=== PATIENT | female | born 1955 | race Caucasian/White ===

== ENCOUNTER 2021-01-28 11:32 | Outpatient (CLI) | payer BC, SELFPAY | END 2021-01-28 11:33 | disposition home or self-care (01) | LOC: ANHCOVIDVC 11:32 | PROVIDERS: PCP Family Medicine | DX: Z23 Encounter for immunization (principal) | CPT/HCPCS: 0001A; 91300 ==

== ENCOUNTER 2021-02-18 11:31 | Outpatient (CLI) | payer BC, SELFPAY | END 2021-02-18 11:32 | disposition home or self-care (01) | LOC: ANHCOVIDVC 11:32 | PROVIDERS: PCP Family Medicine | DX: Z23 Encounter for immunization (principal) | CPT/HCPCS: 0002A; 91300 ==

== ENCOUNTER 2022-03-09 11:15 | Outpatient (CLI) | payer MEDICARE, SELFPAY ==
--- NOTE | ~2022-03-09 | XR_ITS ---
XR lumbar spine 2-3V DATE: 03/09/2022 11:38 INDICATION: Follow-up to surgery 5 weeks ago TECHNIQUE: Standing AP and lateral views COMPARISON: 05/11/2015 lumbar spine FINDINGS: Status post posterior and interbody spinal fusion at L5-S1 There is approximately 7.7 mm grade 1 anterolisthesis at L5-S1. Diffuse osteopenia. Moderately severe degenerative disc disease at L1-2. There is mild degenerative disease at L2-3, L3-4 and L4-5. No fracture or bone destruction is evident. The lumbar pedicles appear intact. The sacroiliac joints appear normal. There is extensive calcification of the abdominal aorta and common iliac arteries, without evidence o f aneurysm. IMPRESSION: Status post posterior and interbody spinal fusion at L5-S1 Grade 1 anterolisthesis at L5-S1 Moderately severe degenerative disc disease at L1-2 and mild degenerative disc disease at the remaini ng lumbar interspaces Reviewed, dictated and finalized at location A. IMPRESSION: Status post posterior and interbody spinal fusion at L5-S1 Grade 1 anterolisthesis at L5-S1 Moderately severe degenerative disc disease at L1-2 and mild degenerative disc disease at the remaining lumbar interspaces
== END 2022-03-09 11:16 | disposition home or self-care (01) ==
LOC: ANHIMG 11:22
PROVIDERS: PCP Family Medicine; Visit Provider Neurological Surgery
DX: M54.50 Low back pain, unspecified (principal); Z98.1 Arthrodesis status; M43.17 Spondylolisthesis, lumbosacral region; M51.36 Other intervertebral disc degeneration, lumbar region
CPT/HCPCS: 72100

== ENCOUNTER 2022-04-06 14:09 | Outpatient (CLI) | payer MEDICARE, SELFPAY ==
--- NOTE | ~2022-04-06 | XR_ITS ---
EXAM: XR lumbar spine 2-3V DATE: 04/06/2022 14:30 HISTORY: ARTHRODESIS STATUS, LOW BACK PAIN UNSPECIFIED . COMPARISON: 03/09/2022. FINDINGS: 5 nonrib-bearing lumbar-type vertebral bodies. L4-5 posterior fusion with interbody device s, no hardware fracture or perihardware lucency. Pedicles intact. Exaggerated lumbar lordosis, stable grade 1 L5-S1 anterolisthesis, otherwise normal vertebral body alignment. Vertebral body heights pre served. Disc disc space narrowing at L1-2. Multilevel marginal osteophytosis. Normal facet sclerosis and interspinous narrowing in the lower lumbar spine. No fracture or dislocation. Abdominal aortic ca lcification without evident aneurysm. IMPRESSION: L5-S1 fusion, no hardware related complication. No acute fracture or traumatic malalignme nt in the lumbar spine. Reviewed, dictated and finalized at location K. IMPRESSION: L5-S1 fusion, no hardware related complication. No acute fracture o r traumatic malalignment in the lumbar spine.
== END 2022-04-06 14:10 | disposition home or self-care (01) ==
PROVIDERS: PCP Family Medicine; Visit Provider Neurological Surgery
DX: M54.50 Low back pain, unspecified (principal); Z98.1 Arthrodesis status; Z98.890 Other specified postprocedural states
CPT/HCPCS: 72100

== ENCOUNTER 2022-05-19 10:41 | Outpatient (CLI) | payer MEDICARE, SELFPAY ==
--- NOTE | ~2022-05-19 | XR_ITS ---
EXAM: XR lumbar spine 2-3V DATE: 05/19/2022 11:08 HISTORY: ARTHRODESIS STATUS, LOW BACK PAIN . COMPARISON: 04/06/2022. FINDINGS: 5 nonrib-bearing lumbar-type vertebral bodies. Pedicles intact. Decreased mineralization. Exaggerated lordosis and mild scoliosis. Posterior fusion at L5-S1, no hardware fracture or abnormal surrounding lucency. Undersurface of the interbody device is uncovered but stable from the prior stud y. Unchanged grade 2 anterolisthesis of L5 on S1. Vertebral body heights are preserved. Multilevel de generative disc disease and facet arthropathy. No abdominal aortic aneurysm. No fracture or dislocati on. IMPRESSION: Uncomplicated appearing L5-S1 posterior fusion. No acute fracture or traumatic malalignme nt. Multilevel degenerative disc disease and facet arthropathy. Reviewed, dictated and finalized at location K. IMPRESSION: Uncomplicated appearing L5-S1 posterior fusion. No acute fracture o r traumatic malalignment. Multilevel degenerative disc disease and facet arthro chen.
== END 2022-05-19 10:42 | disposition home or self-care (01) ==
PROVIDERS: PCP Family Medicine; Visit Provider Neurological Surgery
DX: M54.50 Low back pain, unspecified (principal); Z98.1 Arthrodesis status
CPT/HCPCS: 72100

== ENCOUNTER 2022-07-07 10:10 | Outpatient (CLI) | payer MEDICARE, SELFPAY ==
--- NOTE | 2022-07-07 11:00 | NEURO_ITS ---
Impression: # Known diabetic complains of numbness and weakness of hands. # Bilateral Carpal Tunnel Syndrome of moderate degree, right more than left. # Bilateral severe ulnar neuropathy around the elbows. # Abnormal needle/EMG exam. Nerve Conduction Studies Anti Sensory Summary Table Stim Site NR Peak (ms) P-T Amp (?V) Site1 Site2 Delta-P (ms) Dist (cm) Jac (m/s) Left Median Anti Sensory (2-3nd Digit) Wrist 5.2 13.9 Wrist 2-3nd Digit 5.2 14.0 27 Wrist 5.3 7.7 Wrist 2-3nd Digit 5.2 14.0 27 Right Median Anti Sensory (2-3nd Digit) Wrist 6.9 14.7 Wrist 2-3nd Digit 6.9 14.0 20 Wrist 6.7 25.9 Wrist 2-3nd Digit 6.9 14.0 20 Left Radial Anti Sensory (Base 1st Digit) Wrist 3.3 14.8 Wrist Base 1st Digit 3.3 0.0 Right Radial Anti Sensory (Base 1st Digit) Wrist 3.6 29.4 Wrist Base 1st Digit 3.6 0.0 Left Ulnar Anti Sensory (5th Digit) NO RESPONSE Wrist NR Wrist 5th Digit 14.0 Right Ulnar Anti Sensory (5th Digit) NO RESPONSE Wrist NR Wrist 5th Digit 14.0 Motor Summary Table Stim Site NR Onset (ms) O-P Amp (mV) Site1 Site2 Delta-0 (ms) Dist (cm) Jac (m/s) Left Median Motor (Abd Poll Brev) Wrist 5.9 3.3 Elbow Wrist 5.6 27.0 48 Elbow 11.5 3.1 Right Median Motor (Abd Poll Brev) Wrist 6.6 2.1 Elbow Wrist 5.6 24.0 43 Elbow 12.2 1.9 Left Ulnar Motor (Abd Dig Minimi) Wrist 4.3 0.4 A Elbow Wrist 10.8 29.0 27 A Elbow 15.1 0.5 B Elbow Wrist 6.2 19.0 31 B Elbow 10.5 0.2 Right Ulnar Motor (Abd Dig Minimi) Wrist 4.5 0.6 A Elbow Wrist 10.1 24.0 24 A Elbow 14.6 0.4 B Elbow Wrist 12.1 20.0 17 B Elbow 16.6 0.1 F Wave Studies NR F-Lat (ms) L-R F-Lat (ms) Left Median (Mrkrs) (Abd Poll Brev) 28.57 0.56 Right Median (Mrkrs) (Abd Poll Brev) 28.01 0.56 Left Ulnar (Mrkrs) (Abd Dig Min) 28.01 0.00 Right Ulnar (Mrkrs) (Abd Dig Min) 28.01 0.00 EMG Side Muscle Nerve Root Ins Act Fibs Amp Dur Recrt Comment Right 1stDorInt Ulnar C8-T1 Nml Nml Decr >12ms Reduced Right Ext Indicis Radial (Post Int) C7-8 Nml Nml Nml Nml Nml Right Ext Digitorum Radial (Post Int) C7-8 Nml Nml Nml Nml Nml Right BrachioRad Radial C5-6 Nml Nml Nml Nml Nml Right PronatorTeres Median C6-7 Nml Nml Nml Nml Nml Right Abd Poll Brev Median C8-T1 Nml Nml Decr >12ms Reduced Left 1stDorInt Ulnar C8-T1 Nml Nml Decr >12ms Reduced Left Ext Indicis Radial (Post Int) C7-8 Nml Nml Nml Nml Nml Left Ext Digitorum Radial (Post Int) C7-8 Nml Nml Nml Nml Nml Left BrachioRad Radial C5-6 Nml Nml Nml Nml Nml Left PronatorTeres Median C6-7 Nml Nml Nml Nml Nml Left Abd Poll Brev Median C8-T1 Nml Nml Decr >12ms Reduced Right ABD Dig Min Ulnar C8-T1 Nml Nml Decr >12ms Reduced Left ABD Dig Min Ulnar C8-T1 Nml Nml Decr >12ms Reduced MTDD
== END 2022-07-07 10:11 | disposition home or self-care (01) ==
LOC: ANHNEURO 10:12
PROVIDERS: PCP Family Medicine; Visit Provider Nurse Practitioner Family
DX: R20.0 Anesthesia of skin (principal); G56.03 Carpal tunnel syndrome, bilateral upper limbs; G56.23 Lesion of ulnar nerve, bilateral upper limbs
CPT/HCPCS: 95886; 95911

== ENCOUNTER 2022-07-13 09:49 | Outpatient (CLI) | payer MEDICARE, SELFPAY ==
--- NOTE | ~2022-07-13 | XR_ITS ---
EXAM: XR lumbar spine 2-3V DATE: 07/13/2022 10:21 HISTORY: ARTHRODESIS STATUS . COMPARISON: 05/19/2022. FINDINGS: Osteopenia. Mild lumbar scoliosis. Posterior fusion L5-S1, with intact hardware. Grade 2 L5 -S1 anterolisthesis, stable. Interbody device remains in stable position. 5 nonrib-bearing lumbar-typ e vertebral bodies. Pedicles intact. Remaining vertebral bodies are aligned. Vertebral body heights p reserved. Multilevel degenerative disc disease and facet arthropathy. No fracture or dislocation. IMPRESSION: Stable L5-S1 posterior fusion. Reviewed, dictated and finalized at location K.
== END 2022-07-13 09:50 | disposition home or self-care (01) ==
PROVIDERS: PCP Family Medicine; Visit Provider Neurological Surgery
DX: Z98.1 Arthrodesis status (principal)
CPT/HCPCS: 72100

== ENCOUNTER 2022-10-05 10:42 | Outpatient (CLI) | payer MEDICARE, SELFPAY ==
--- NOTE | ~2022-10-05 | XR_ITS ---
EXAM: XR lumbar spine 2-3V DATE: 10/05/2022 11:10 HISTORY: ENCOUNTER FOR L5-S1 LAMINECTOMY/FUSION SURGICAL AFTERCARE . COMPARISON: 07/13/2022. FINDINGS: Osteopenia. L5-S1 posterior fusion and interbody device, stable, and without obvious compli cation. 5 nonrib-bearing lumbar-type vertebral bodies. Pedicles intact. Stable grade 2 anterolisthesi s at L5-S1. Vertebral body heights preserved. Multilevel moderate marginal osteophytosis and disc spa ce narrowing. Multilevel facet arthropathy. No fracture or dislocation. IMPRESSION: Uncomplicated appearing L5-S1 posterior fusion hardware. Reviewed, dictated and finalized at location K. F MARKETING OFFICER
== END 2022-10-05 10:43 | disposition home or self-care (01) ==
PROVIDERS: PCP Family Medicine; Visit Provider Neurological Surgery
DX: Z48.89 Encounter for other specified surgical aftercare (principal); Z98.1 Arthrodesis status
CPT/HCPCS: 72100

== ENCOUNTER 2022-10-16 12:29 | Outpatient (CLI) | payer MEDICARE, SELFPAY ==
[2022-10-16 13:31] LABS: Anion Gap 9 mmol/L (8-16); Blood Urea Nitrogen 31 mg/dL (7-17); Calcium 9.1 mg/dL (8.4-10.2); Carbon Dioxide 30 mmol/L (22-30); Chloride 103 mmol/L (98-107); Estimated Glomerular Filt Rate > 60; Glucose 92 mg/dL (65-110); Potassium 4.3 mmol/L (3.4-5.0); Sodium 142 mmol/L (137-145)
== END 2022-10-16 12:30 | disposition home or self-care (01) ==
PROVIDERS: Anesthesiology; PCP Family Medicine; Visit Provider Plastic Surgery
DX: E11.40 Type 2 diabetes mellitus with diabetic neuropathy, unspecified (principal)
CPT/HCPCS: 36415; 80048

== ENCOUNTER 2022-10-21 00:46 | Day surgery (SDC) | payer MEDICARE, SELFPAY ==
--- NOTE | 2022-10-14 08:19 | PC.NURSE ---
Report to the Outpatient Waiting Room, entrance under the green pavilion located off [address], at time __0600 on date _10/21/22 . Planned Procedure Time: _0730 . Time changes happen often and if your time is changed the preop area will call you the afternoon before. - You and your visitor will be asked to self-screen and do not enter if you have any COVID symptoms. - Only one visitor is requested with a max of two and NO children visitors are allowed at this time. - The patient visitor may be requested to leave or wait in car when not with patient due to distancing restrictions. - A mask is optional within the hospital. Patients may have clear liquids (water, carbonated beverages, clear teas, apple juice) until 3 hours prior to surgery with a maximum of 20 ounces. - No food from midnight until time of surgery - Infants may have breast milk until 4 hours before surgery, infant formula 6 hours prior to surgery. - Children will be allowed to drink immediately following surgery. If applicable, please bring a bottle or sippy cup to assist with drinking. Juice, water, soda, and popsicles are readily available. For infants on formula, please bring formula the day of surgery. Pacifiers are allowed. Take the following medications with a SIP of water the morning of surgery: ___METOPROLOL Medications to discontinue per physician ___ALL VITAMINS AND SUPPLEMENTS Date to take last dose____10/17/22 MAY CONTINUE TO TAKE ASPIRIN AND PLAVIX PER DR DAVIDSON- BUT PLEASE DO NOT TAKE MORNING OF SURGERY Please no make-up, nail mauritanian, hairspray, perfume, deodorant, or body powder the day of surgery. No jewelry (including any body piercings) or valuables the day of surgery, leave them at home. Please take a shower or bath the night before, or the morning of, surgery with an antibacterial soap. Wear comfortable, loose fitting clothing. Children are encouraged to wear pajamas. - Jewelry must be removed prior to entering the operating room. Rings and piercings that are not removed may be cut off. - The hospital will not accept responsibility for valuables. - Please leave all valuables, including medications, at home the day of surgery. If you are going home after surgery, a licensed vibratory pile driver must drive you home. - NO public transportation without another adult if you receive anesthesia. - We recommend that an adult stay with you for 24 hours following discharge. - We also recommend that you do not drive, make important decision, drink alcoholic beverages, or take any drugs that were not prescribed by your health care provider for at least 24 hours after your discharge time. For Pediatric surgeries, we recommend two adults accompany the child home. Follow any additional instructions given to you from your surgeon. If you or anyone in your household have experienced Covid symptoms in the past week, please notify your surgeon or the nurse liaison at the phone number below for possible testing. Telephone instructions given to __PATIENT and asked if any additional questions and then verbalized understanding. Patient advised to call surgeon office or pre surgery nurse liaison [phone] if any additional questions.
[2022-10-14 08:31] VITALS: BMI 35.7
--- NOTE | 2022-10-21 07:35 | WPDHPUPDATE1 ---
History and Physical Update Update Date/Time: 10/21/22 07:35 History and Physical has been reviewed, including an updated exam of the patient. There are NO changes in the patient's condition. Risks, benefits, and alternatives have been discussed and questions answered. Patient agrees to proceed with procedure.
[2022-10-21 07:40] VITALS: BP 154/64; PULSE 76; RESP 14; TEMP 36.2; O2SAT 100
[2022-10-21 07:51] VITALS: BMI 43.4
[2022-10-21] MEDS: LACTATED RINGERS 1,000 ML 30 ML IV CONT (08:35)
[2022-10-21 08:43] LABS: Glucose Point of Care 97 mg/dl (65-105)
--- NOTE | 2022-10-21 09:22 | WPDANESEPPF ---
Anes - Initial Pre Proc Eval Procedure: Operation Date: 10/21/22 09:30 Proposed Procedures p Right Open Carpal Tunnel Release, Right Ulnar Neuroplasty at Elbow - Mahesh Simon MD Date/Time: 10/21/22 09:22 Surgeon: Mahesh Simon MD Pre Op Diagnosis: right carpal & cubital tunnel syndrome Patient Data Age: 67 Gender: F Height: 1.61 m Weight: 112.9 kg Last Vital Signs Temp 36.2 C L 10/21/22 07:40 Pulse 76 10/21/22 07:40 Resp 14 10/21/22 07:40 BP 154/64 H 10/21/22 07:40 Pulse Ox 100 10/21/22 07:40 O2 Del Method Room Air 10/21/22 07:40 Allergies Allergy/AdvReac Type Severity Reaction Status Date / Time morphine Allergy Severe Nausea and Verified 10/21/22 07:50 Vomiting metformin Allergy Unknown Nausea and Verified 10/21/22 07:50 Vomiting Penicillins AdvReac Unknown Other Verified 10/21/22 07:50 Home Medications Medication Instructions Recorded Confirmed Type aspirin 81 mg tablet,delayed 81 mg PO DAILY 12/26/19 10/21/22 History release (Aspir-) loratadine 10 mg tablet (Claritin) 10 mg PO DAILY 02/29/20 10/14/22 History mecobalamin (vitamin B12) 1,000 1,000 mcg PO DAILY 02/29/20 10/14/22 History mcg chewable tablet meclizine 25 mg tablet 25 mg PO TID PRN dizziness #30 tabs 03/27/20 10/14/22 Rx atorvastatin 20 mg tablet 20 mg PO QHS #90 tabs 05/19/22 10/14/22 Rx clopidogrel 75 mg tablet 75 mg PO DAILY #90 tabs 05/19/22 10/21/22 Rx lisinopril 10 mg tablet 10 mg PO BID #180 tabs 08/13/22 10/14/22 Rx omeprazole 20 mg capsule,delayed See Rx Instructions .Route 08/13/22 10/14/22 Rx release .COMPLEX #90 caps metoprolol succinate 25 mg 37.5 mg PO DAILY #90 tabs 10/07/22 10/21/22 Rx tablet,extended release 24 hr hydrochlorothiazide 12.5 mg capsule 12.5 mg PO DAILY 10/14/22 10/14/22 History ibuprofen 200 mg tablet (Advil) 200 mg PO Q6H PRN Pain 10/14/22 10/14/22 History insulin lispro protamine-lispro 37 unit (0.37 mL) subcut BID #210 10/19/22 Rx 100 unit/mL (75-25) subcutaneous mL pen (Humalog Mix 75-25 KwikPen) Laboratory Tests 10/21/22 08:40 POC Capillary Glucose 97 mg/dl mg/dl (65-105) Patient hx anesthesia problems: none Family hx anesthesia problems: none Results Review: All pre-operative results and documents have been reviewed as part of the pre-operative evaluation. [facility] Past Medical History Medical History CAD in [place] artery Cataract 2014 Chronic low back pain Essential (primary) hypertension History of kidney stones 2013 History of stroke Peripheral neuropathy Stroke may 2017 Type 2 diabetes mellitus with diabetic neuropathy Surgical History Surgical History History of coronary artery stent placement 10/2017 x3 times Hx of decompressive lumbar laminectomy (~01/26/22) L5-S1 decompressive laminectomy with fusion - Dr Encarnacion at [facility] Social History Social History (Updated 03/16/22 @ 15:14 by Lisa Trejo NP) Social History: Patient lives with her boyfriend in [place]. 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 Smoking status: Never smoker Living arrangements: with family Spiritual care concerns: No Anes - Eval Final PreProcedure Day of Procedure 10/21/22 09:22 Patient weight: morbidly obese Heart: regular rate and rhythm Lungs: decreased breath sounds Airway: Mallampati scale class II Neurological: alert and oriented Last oral intake: >/= 8 hours ASA classification: III Emergent: no Anesthetic plan: proceed Anesthesia type and monitoring: general GIVS and standard monitoring Results Review: All pre-operative results and documents have been reviewed as part of the pre-operative evaluation. Informed Consent: The patient's anesthetic plan and its attendant risks and benefits were discussed with the patien
[2022-10-21] MEDS: LIDO 1%/EPINEPHRINE/PF 1:200,000 30 ML VIAL XX (10:07)
[2022-10-21 10:49] VITALS: BP 117/53; PULSE 91; RESP 16; TEMP 37.2; O2SAT 97
--- NOTE | 2022-10-21 11:03 | P.OP_ITS ---
Procedure Note - Detailed Date of Procedure 10/21/22 Pre-op Diagnosis right carpal & cubital tunnel syndrome Post-op Diagnosis Same Procedure Performed Right carpal tunnel release and right ulnar neuroplasty at the elbow Surgeon Mahesh Simon MD Anesthesia MAC Description of Procedure The 2 sites were marked on the patient's right upper extremity in the holding area with her consent. He was then taken to the operating room and placed supine on the operating table. She was given IV sedation. The right upper extremity was prepped and draped usual fashion. A time-out was held and confirmed. The site was remarked for the incisions and locally infiltrated with 1% lidocaine with epinephrine. The right upper extremity was exsanguinated and the tourniquet inflated to 250 mmHg. The incision was made 1st in the palm and dissected bluntly through the subcutaneous tissue to the palmar fascia. Under 3 point retraction the fascia and the carpal retinaculum were incised with a 15 blade. The carpal tunnel was exposed. The ligament was divided distally and proximally for complete release. No unusual anatomy was noted. The skin was closed with interrupted 5 0 nylon suture. The elbow was flexed and supported on a folded towel. The incision was made for the ulnar neuroplasty. Dissection was carried through the ample subcutaneous tissue. The interspace between the medial epicondyle and the olecranon was identified. The nerve was exposed at that point and the fascial released from the nerve of proximally and distally including the release of Garza's ligament. No unusual anatomy was noted, there appeared to be no compression in the flexor muscle fascia. The nerve subluxated as we flexed and extended the elbow. The tourniquet was released and there was minimal bleeding. Few points were electrocoagulated. The wound margins were approximated with intradermal 3- 0 Monocryl suture at multiple sites. The skin was then closed with glue. When the glue dried the usual bandage was applied at the wrist and at the elbow. The patient was discharged in stable condition to the recovery area. She is being discharged with instructions wound care and follow-up and a prescription for hydrocodone 5/325 7 tablets. Estimated Blood Loss 2 Drains No Packing No Pathology None sent Complications No immediate complications Condition Stable Disposition Same day
[2022-10-21 11:11] LABS: Glucose Point of Care 103 mg/dl (65-105)
[2022-10-21 11:15] VITALS: BP 134/46; PULSE 88
[2022-10-21 11:40] VITALS: BP 115/47; PULSE 88
== END 2022-10-21 11:50 | disposition home or self-care (01) ==
PROVIDERS: PCP Family Medicine; Visit Provider Plastic Surgery
PROC: (CPT 64721; principal; 2022-10-21 09:30)
DX: G56.01 Carpal tunnel syndrome, right upper limb (principal); G56.21 Lesion of ulnar nerve, right upper limb; I10 Essential (primary) hypertension; E11.42 Type 2 diabetes mellitus with diabetic polyneuropathy; Z86.73 Personal history of transient ischemic attack (TIA), and cerebral infarction without residual deficits; Z95.5 Presence of coronary angioplasty implant and graft; E66.01 Morbid (severe) obesity due to excess calories; Z68.41 Body mass index [BMI] 40.0-44.9, adult; Z79.82 Long term (current) use of aspirin; Z79.02 Long term (current) use of antithrombotics/antiplatelets; Z79.4 Long term (current) use of insulin
CPT/HCPCS: 64721; 64718; 82948; A9270; J2250; J2704; J3010; J7120

== ENCOUNTER 2022-11-26 10:31 | Outpatient (CLI) | payer MEDICARE, SELFPAY ==
[2022-11-26 19:51] LABS: Basophils Percent Auto 0.4 % (0.2-1.2); Eosinophils Absolute Auto 0.3 K/mm3 (0-0.3); Eosinophils Percent Auto 3.9 % (0-4.4); Hematocrit 42.6 % (37.0-47.0); Hemoglobin 12.9 g/dL (12.0-15.0); Immature Granulocyte Absolute 0.03 K/mm3 (0.00-0.031); Immature Granulocyte Percent A 0.4 % (0-0.5); Lymphocytes Absolute Auto 1.04 K/mm3 (0.9-3.2); Mean Corpuscular HGB Conc 30.3 g/dl (32-36); Mean Corpuscular Hemoglobin 28.9 pg (26-34); Mean Corpuscular Volume 95.5 fl (80-100); Mean Platelet Volume 9.6 fl (7.4-10.4); Monocytes Absolute Auto 0.5 K/mm3 (0.1-0.6); Monocytes Percent Auto 6.9 % (2.6-8.5); Neutrophils Absolute Auto 5.5 K/mm3 (1.3-6.7); Neutrophils Percent Auto 74.4 % (45.5-73.1); Platelet Count Result 297 k/mm3 (150-375); Red Blood Count 4.46 M/mm3 (4.2-5.4); Red Cell Distribution Width 14.2 % (11.5-14.5); White Blood Count 7.4 K/mm3 (4.5-10.0)
[2022-11-26 20:44] LABS: Hemoglobin A1C 8.2 % (<5.7)
[2022-11-26 20:58] LABS: Alanine Aminotransferase 18 U/L (6-35); Albumin Level 4.2 g/dL (3.5-5.1); Alkaline Phosphatase 134 U/L (38-126); Anion Gap 3 mmol/L (8-16); Aspartate Amino Transferase 52 U/L (14-36); Bilirubin,Total 0.3 mg/dL (0.2-1.3); Blood Urea Nitrogen 24 mg/dL (7-17); Calcium 9.1 mg/dL (8.4-10.2); Carbon Dioxide 36 mmol/L (22-30); Chloride 97 mmol/L (98-107); Cholesterol 143 mg/dL (0-200); Estimated Glomerular Filt Rate > 60; Glucose 95 mg/dL (65-110); HDL Direct 54 mg/dL; Potassium 4.7 mmol/L (3.4-5.0); Sodium 136 mmol/L (137-145); Triglycerides 103 mg/dL (<150)
[2022-11-26 21:10] LABS: LDL Cholesterol Direct 51 mg/dL
== END 2022-11-26 10:32 | disposition home or self-care (01) ==
LOC: ANHGOSHLAB 10:34
PROVIDERS: PCP Family Medicine; Visit Provider Nurse Practitioner Family
DX: E78.5 Hyperlipidemia, unspecified (principal); I10 Essential (primary) hypertension; E11.9 Type 2 diabetes mellitus without complications
CPT/HCPCS: 36415; 80053; 80061; 83036; 85025

== ENCOUNTER 2022-12-02 00:34 | Day surgery (SDC) | payer MEDICARE, SELFPAY ==
--- NOTE | 2022-11-27 14:33 | PC.NURSE ---
Report to the Outpatient Waiting Room, entrance under the green pavilion located off [address], at time ___0600____ on date __12/02/22 . Planned Procedure Time: _729 . Time changes happen often and if your time is changed the preop area will call you the afternoon before. - You and your visitor will be asked to self-screen and do not enter if you have any COVID symptoms. - Only one visitor is requested with a max of two and NO children visitors are allowed at this time. - The patient visitor may be requested to leave or wait in car when not with patient due to distancing restrictions. - A mask is optional within the hospital. Patients may have clear liquids (water, carbonated beverages, clear teas, apple juice) until 3 hours prior to surgery with a maximum of 20 ounces. - No food from midnight until time of surgery - Infants may have breast milk until 4 hours before surgery, formula 6 hours prior to surgery. - Children will be allowed to drink immediately following surgery. If applicable, please bring a bottle or sippy cup to assist with drinking. Juice, water, soda, and popsicles are readily available. For infants on formula, please bring formula the day of surgery. Pacifiers are allowed. Take the following medications with a SIP of water the morning of surgery: __METOPROLOL Medications to discontinue per physician ___ALL VITAMINS AND SUPPLEMENTS 3 DAYS PRE OP LAST DOSE 11/28/22 REMAIN ON ASPIRIN AND PLAVIX .DON'T TAKE MORNING OF SURGERY Date to take last dose Please no make-up, nail yi, hairspray, perfume, deodorant, or body powder the day of surgery. No jewelry (including any body piercings) or valuables the day of surgery, leave them at home. Please take a shower or bath the night before, or the morning of, surgery with an antibacterial soap. Wear comfortable, loose fitting clothing. Children are encouraged to wear pajamas. - Jewelry must be removed prior to entering the operating room. Rings and piercings that are not removed may be cut off. - The hospital will not accept responsibility for valuables. - Please leave all valuables, including medications, at home the day of surgery. If you are going home after surgery, a licensed driver medic must drive you home. - NO public transportation without another adult if you receive anesthesia. - We recommend that an adult stay with you for 24 hours following discharge. - We also recommend that you do not drive, make important decision, drink alcoholic beverages, or take any drugs that were not prescribed by your health care provider for at least 24 hours after your discharge time. For Pediatric surgeries, we recommend two adults accompany the child home. Follow any additional instructions given to you from your surgeon. If you or anyone in your household have experienced Covid symptoms in the past week, please notify your surgeon or the nurse liaison at the phone number below for possible testing. Telephone instructions given to ___PATIENT and asked if any additional questions and then verbalized understanding. Patient advised to call surgeon office or pre surgery nurse liaison [phone] if any additional questions.
[2022-11-27 14:39] VITALS: BMI 38.3
[2022-12-02] VITALS (7 sets, daily range): BP systolic 119–178; BP diastolic 61–81; PULSE 80–85; RESP 14–18; TEMP 36.3; O2SAT 95–100
[2022-12-02 06:36] LABS: Glucose Point of Care 82 mg/dl (65-105)
--- NOTE | 2022-12-02 07:05 | WPDANESEPPF ---
Anes - Initial Pre Proc Eval Procedure: Operation Date: 12/02/22 07:30 Proposed Procedures p Left Open Carpal Tunnel Release, Left Ulnar Neuroplasty at Elbow - Mahesh Simon MD Date/Time: 12/02/22 07:05 Surgeon: Mahesh Simon MD Pre Op Diagnosis: carpal/cubital tunnel syndrome Patient Data Age: 67 Gender: F Height: 1.61 m Weight: 111.8 kg Last Vital Signs Temp 36.3 C L 12/02/22 07:01 Pulse 85 12/02/22 07:01 Resp 16 12/02/22 07:01 BP 119/61 12/02/22 07:01 Pulse Ox 100 12/02/22 07:01 O2 Del Method Room Air 12/02/22 07:01 Allergies Allergy/AdvReac Type Severity Reaction Status Date / Time morphine Allergy Severe Nausea and Verified 12/02/22 06:17 Vomiting metformin Allergy Unknown Nausea and Verified 12/02/22 06:17 Vomiting Penicillins AdvReac Unknown Other Verified 12/02/22 06:17 Home Medications Medication Instructions Recorded Confirmed Type aspirin 81 mg tablet,delayed 81 mg PO DAILY 12/26/19 12/02/22 History release (Aspir-) loratadine 10 mg tablet (Claritin) 10 mg PO DAILY 02/29/20 12/02/22 History mecobalamin (vitamin B12) 1,000 1,000 mcg PO DAILY 02/29/20 12/02/22 History mcg chewable tablet meclizine 25 mg tablet 25 mg PO TID PRN dizziness #30 tabs 03/27/20 11/27/22 Rx lisinopril 10 mg tablet 10 mg PO BID #180 tabs 08/13/22 12/02/22 Rx omeprazole 20 mg capsule,delayed See Rx Instructions .Route 08/13/22 12/02/22 Rx release .COMPLEX #90 caps metoprolol succinate 25 mg 37.5 mg PO DAILY #90 tabs 10/07/22 12/02/22 Rx tablet,extended release 24 hr hydrochlorothiazide 12.5 mg capsule 12.5 mg PO DAILY 10/14/22 12/02/22 History ibuprofen 200 mg tablet (Advil) 200 mg PO Q6H PRN Pain 10/14/22 12/02/22 History insulin lispro protamine-lispro 37 unit (0.37 mL) subcut BID #210 10/19/22 12/02/22 Rx 100 unit/mL (75-25) subcutaneous mL pen (Humalog Mix 75-25 KwikPen) atorvastatin 20 mg tablet 20 mg PO QHS #90 tabs 11/06/22 12/02/22 Rx clopidogrel 75 mg tablet 75 mg PO DAILY #90 tabs 11/06/22 12/02/22 Rx gabapentin 300 mg capsule 300 mg PO BID #180 caps 11/26/22 12/02/22 Rx ascorbic acid (vitamin C) 500 mg 500 mg PO DAILY 11/27/22 12/02/22 History capsule Laboratory Tests 12/02/22 06:32 POC Capillary Glucose 82 mg/dl mg/dl (65-105) Patient hx anesthesia problems: none Family hx anesthesia problems: none Results Review: All pre-operative results and documents have been reviewed as part of the pre-operative evaluation. [facility] Past Medical History Medical History CAD in [place] artery Cataract 2014 Chronic low back pain Essential (primary) hypertension History of kidney stones 2013 History of stroke Peripheral neuropathy Stroke may 2017 Type 2 diabetes mellitus with diabetic neuropathy Surgical History Surgical History History of carpal tunnel surgery of right wrist History of coronary artery stent placement 10/2017 x3 times History of lumbar [facility] (~12/2021[facility] Hx of decompressive lumbar laminectomy (~01/26/22) L5-S1 decompressive laminectomy with fusion - Dr Encarnacion at [facility] Social History Social History Social History: Patient lives with her boyfriend in [place]. 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 Smoking status: Never smoker Alcohol intake: current Alcohol use details: rarely Substance use: never Substance use type: does not use Lack of Transportation: No Lack of Food: Never True Current Housing: I Have Housing Concerned About Future Housing: No Difficulty Paying Gas/Electric Bills: No Difficulty Paying for Meds: No Currently Unemployed: No Education: Trade/Vocational Certificate Difficulty w/ Chi
[2022-12-02] MEDS: LACTATED RINGERS 1,000 ML 30 ML IV CONT (07:10)
--- NOTE | 2022-12-02 07:15 | WPDHPUPDATE1 ---
History and Physical Update Update Date/Time: 12/02/22 07:15 History and Physical has been reviewed, including an updated exam of the patient. There are NO changes in the patient's condition. Risks, benefits, and alternatives have been discussed and questions answered. Patient agrees to proceed with procedure.
[2022-12-02 08:50] LABS: Glucose Point of Care 95 mg/dl (65-105)
--- NOTE | 2022-12-02 09:00 | W.PM.PROC2 ---
Procedure Note - Detailed Date of Procedure 12/02/22 Pre-op Diagnosis carpal/cubital tunnel syndrome Post-op Diagnosis Same Procedure Performed Left open carpal tunnel release and left ulnar neuroplasty at the elbow Surgeon Mahesh Simon MD Unemployment Claims Adjudicator Mary Jane Anesthesia [facility] [place] Description of Procedure The 2 sites on this patient left arm were marked in holding area with her consent. She was then taken to the operating room where she was placed supine on the operating table. She was given IV sedation. The left upper extremity was prepped and draped in usual fashion. A time-out was held and confirmed. The sites were remarked for the incisions and locally infiltrated with 2% lidocaine with epinephrine. The extremity was exsanguinated and the tourniquet inflated to 250 mm of mercury. Surgery was initiated at the left wrist. The incision was made in the palm as marked and dissection was carried bluntly through the subcutaneous tissue to the palmar aponeurosis. That and the carpal retinaculum were incised with a 15. blade opening the canal. With 3 point retraction the ligament was divided distally and proximally with a knife. A complete release was confirmed. No unusual anatomy was noted. The skin was closed with interrupted 5 0 nylon suture. Attention was turned to the elbow. The elbow was flexed and supported on folded towels. The incision was made as marked. There was ample subcutaneous tissue. This was retracted and the interspace between the medial epicondyle and olecranon was explored. The ulnar nerve was identified at Guyon's canal as it was opened.. The fascia was divided distally into the flexor muscle region. There appeared to be no additional sites of compression there. The fascia was also incised proximally and there appeared to be no sites of compression there. The intermuscular septum did not appear to be a source of compression. The elbow wound was closed with intradermal 3-0 Monocryl suture at multiple sites. The skin was finished with glue. The usual bandage were applied at both sites of the tourniquet was released at that point. Patient was discharged from the operating room in stable condition. Hydrocodone /APAP 5/325 #7 was transmitted to her pharmacy. Estimated Blood Loss -1.0 Tourniquet Time 40 Drains No Packing No Complications No immediate complications Condition Stable Disposition Same day
== END 2022-12-02 10:20 | disposition home or self-care (01) ==
PROVIDERS: PCP Family Medicine; Visit Provider Plastic Surgery
PROC: (CPT 64721; principal; 2022-12-02 07:30)
DX: G56.02 Carpal tunnel syndrome, left upper limb (principal); G56.22 Lesion of ulnar nerve, left upper limb; I25.10 Atherosclerotic heart disease of native coronary artery without angina pectoris; I10 Essential (primary) hypertension; E11.42 Type 2 diabetes mellitus with diabetic polyneuropathy; Z86.73 Personal history of transient ischemic attack (TIA), and cerebral infarction without residual deficits; Z95.5 Presence of coronary angioplasty implant and graft; Z98.1 Arthrodesis status; E66.01 Morbid (severe) obesity due to excess calories; Z68.41 Body mass index [BMI] 40.0-44.9, adult; Z79.82 Long term (current) use of aspirin; Z79.4 Long term (current) use of insulin; Z79.02 Long term (current) use of antithrombotics/antiplatelets
CPT/HCPCS: 64721; 64718; 82948; A9270; J1100; J1170; J2250; J2405; J2704; J3010; J7120

== ENCOUNTER → 2023-05-13 12:16 | Outpatient (CLI) | payer MEDICARE, SELFPAY ==
--- NOTE | ~2023-05-13 | MR_ITS ---
MRI of the lumbar spine Clinical History: Claudication Technique: Axial T2-weighted images, and sagittal T1-weighted, T2-weighted, and T2 fat-sat images wer e acquired. Following intravenous administration of 20 cc MultiHance gadolinium, T1-weighted fat-sat imaging was performed in the axial and sagittal planes. Findings: 12 mm anterolisthesis of L5 over S1 is present. There is posterior fusion hardware at the L 5-S1 level, with bilateral rods and transpedicular screws present. There is L5 laminectomy. Possible underlying L5 pars and articularis defects, though assessment for this entity is limited due to the h ardware which is present. No other fracture or subluxation seen. No suspicious bone marrow signal abn ormality seen. At L1-L2, there is no significant disc bulge or herniation. There is mild facet arthropathy. No centr al canal stenosis or neural foraminal narrowing. At L2-L3, there is no disc bulge or herniation. There is mild to moderate facet arthropathy. No centr al canal stenosis or neural foraminal narrowing. At L3-L4, there is minimal disc bulge with moderate facet arthropathy. No central canal stenosis or n eural foraminal narrowing. At L4-L5, there is mild disc bulge with advanced facet arthropathy. No central canal stenosis. There is mild right neural foraminal narrowing. Left neural foramen preserved. At L5-S1, there is probable severe bilateral neural foraminal narrowing related to the listhesis. No rusty central canal stenosis evident. Paravertebral soft tissues are unremarkable aside from expected postoperative change. No suspicious p ostcontrast enhancement identified. Impression: 12 mm anterolisthesis of L5 over S1, with posterior fusion and laminectomy at this level. Suspected u nderlying bilateral L5 pars interarticularis defects. Advanced bilateral neural foraminal narrowing at L5-S1. Reviewed, dictated and finalized at location M. Impression: 12 mm anterolisthesis of L5 over S1, with posterior fusion and laminectomy at t his level. Suspected underlying bilateral L5 pars interarticularis defects. Advanced bilateral neural foraminal narrowing at L5-S1.
== END ==
PROVIDERS: PCP Family Medicine; Visit Provider Anesthesiology Pain Medicine
DX: M47.817 Spondylosis without myelopathy or radiculopathy, lumbosacral region (principal); M96.1 Postlaminectomy syndrome, not elsewhere classified; M48.061 Spinal stenosis, lumbar region without neurogenic claudication
CPT/HCPCS: 72158; A9577

== ENCOUNTER 2023-05-27 10:52 | Outpatient (CLI) | payer MEDICARE, SELFPAY ==
[2023-05-27 14:33] LABS: Basophils Percent Auto 0.4 % (0.2-1.2); Eosinophils Absolute Auto 0.2 K/mm3 (0-0.3); Eosinophils Percent Auto 2.7 % (0-4.4); Hematocrit 43.7 % (37.0-47.0); Hemoglobin 13.4 g/dL (12.0-15.0); Immature Granulocyte Absolute 0.03 K/mm3 (0.00-0.031); Immature Granulocyte Percent A 0.4 % (0-0.5); Lymphocytes Absolute Auto 1.23 K/mm3 (0.9-3.2); Lymphocytes Percent Auto 17.2 % (18.3-44.2); Mean Corpuscular HGB Conc 30.7 g/dl (32-36); Mean Corpuscular Hemoglobin 29.1 pg (26-34); Mean Platelet Volume 9.9 fl (7.4-10.4); Monocytes Absolute Auto 0.5 K/mm3 (0.1-0.6); Monocytes Percent Auto 7.1 % (2.6-8.5); Neutrophils Absolute Auto 5.2 K/mm3 (1.3-6.7); Neutrophils Percent Auto 72.2 % (45.5-73.1); Platelet Count Result 310 k/mm3 (150-375); Red Cell Distribution Width 15.2 % (11.5-14.5); White Blood Count 7.2 K/mm3 (4.5-10.0)
[2023-05-27 16:18] LABS: Alanine Aminotransferase 24 U/L (6-35); Albumin Level 4.2 g/dL (3.5-5.1); Alkaline Phosphatase 103 U/L (38-126); Anion Gap 4 mmol/L (8-16); Aspartate Amino Transferase 48 U/L (14-36); Bilirubin,Total 0.5 mg/dL (0.2-1.3); Blood Urea Nitrogen 46 mg/dL (7-17); Calcium 9.8 mg/dL (8.4-10.2); Carbon Dioxide 34 mmol/L (22-30); Chloride 97 mmol/L (98-107); Cholesterol 134 mg/dL (0-200); Estimated Glomerular Filt Rate 55; Glucose 175 mg/dL (65-110); HDL Direct 39 mg/dL; Potassium 4.2 mmol/L (3.4-5.0); Sodium 135 mmol/L (137-145); Triglycerides 151 mg/dL (<150)
[2023-05-27 16:30] LABS: LDL Cholesterol Direct 52 mg/dL
[2023-05-27 16:37] LABS: Vitamin D 25 Hydroxy 26.6 ng/mL
== END 2023-05-27 10:53 | disposition home or self-care (01) ==
LOC: ANHGOSHLAB 10:53
PROVIDERS: PCP Family Medicine; Visit Provider Nurse Practitioner Family
DX: E11.40 Type 2 diabetes mellitus with diabetic neuropathy, unspecified (principal); Z79.4 Long term (current) use of insulin; Z13.21 Encounter for screening for nutritional disorder; I10 Essential (primary) hypertension; Z13.220 Encounter for screening for lipoid disorders; Z13.29 Encounter for screening for other suspected endocrine disorder
CPT/HCPCS: 36415; 80053; 80061; 82306; 84443; 85025

== ENCOUNTER 2023-06-08 06:17 | Day surgery (SDC) | payer MEDICARE, SELFPAY ==
[2023-05-27 14:22] VITALS: BMI 38.2
[2023-05-27 14:43] VITALS: BMI 38.2
--- NOTE | ~2023-06-08 | XR_ITS ---
XR fluoroscopy no charge Procedure: Bilateral L5-S1 transforaminal epidural steroid injection TECHNIQUE: Fluoroscopy used during Bilateral L5-S1 transforaminal epidural steroid injection perform ed by [Amor Steiner MD] on 06/08/2023. 32 seconds of fluoroscopy time with 6 images captured. FINDINGS: Correlate with procedure note. IMPRESSION: Fluoroscopy used during Bilateral L5-S1 transforaminal epidural steroid injection. Reviewed, dictated and finalized at location A. IMPRESSION: Fluoroscopy used during Bilateral L5-S1 transforaminal epidural isaac roid injection.
[2023-06-08 07:03] VITALS: BP 130/97; PULSE 83; RESP 20; O2SAT 100
--- NOTE | 2023-06-08 07:20 | WPDHPUPDATE1 ---
History and Physical Update Update Date/Time: 06/08/23 07:20 History and Physical has been reviewed, including an updated exam of the patient. There are NO changes in the patient's condition. Risks, benefits, and alternatives have been discussed and questions answered. Patient agrees to proceed with procedure.
[2023-06-08 07:40] VITALS: BP 118/68; PULSE 94; RESP 18; O2SAT 100
[2023-06-08 07:50] VITALS: BP 115/93; PULSE 100; RESP 20; O2SAT 100
[2023-06-08] MEDS: LIDOCAINE HCL 2% PF INJ 5 ML VIAL 2 ML INFILTRATE (07:55)
[2023-06-08] MEDS: LIDOCAINE HCL 1% PF INJ 5 ML VIAL 7 ML AFFCTD EYE (08:00)
--- NOTE | 2023-06-08 08:03 | W.PM.PROC2 ---
Procedure Note - Detailed Date of Procedure 06/08/23 Pre-op Diagnosis Lumbosacral Radiculopathy Post-op Diagnosis Same Procedure Performed Bilateral L5-S1 Transforaminal Epidural Steroid Injection with Fluoroscopy. Surgeon Amor Steiner MD Anesthesia Local Description of Procedure INFORMED CONSENT: Risks, benefits and alternatives to the procedure were discussed in detail with the patient who expressed explicit understanding and consent to proceed. Patient was informed verbally and in written form regarding the risks associated with the procedure including the low risk of serious infection, bleeding/bruising, allergic reaction, nerve or organ injury, paralysis, procedural site pain or discomfort, worsening pain and/or mobility, failure to treat and/or disfigurement. The patient expressed explicit understanding and consent to proceed. All materials required for the procedure were available prior to procedure start. Site and side was marked prior to procedure and confirmed in the presence of the patient. PROCEDURE IN DETAIL: The patient was brought to the procedural suite and placed in the prone position. Patient was made comfortable with use of pillows under the head/chest, hips and ankles. Skin overlying the injection site was prepared broadly with ChloraPrep applicator and draped in a sterile manner. Aseptic technique was employed throughout. The endplates of the vertebral body at the site of interest were aligned in the AP view. Ipsilateral oblique angulation was utilized to better visualize the neuroforamen of interest. Local anesthesia was established by infiltration with approximately 5 mL of 2% lidocaine via a 1-1/2 inch 27-gauge needle. A 22-gauge 5.0 inch Jr (pencil point) spinal needle was advanced until the needle approached the 6 o'clock position on the pedicle just superior to the exiting nerve root. on the right at L5-S1. Lateral view was utilized to confirm appropriate position of the needle tip within the superior and posterior portion of the respective foramen. In an AP view, 1 mL of Omnipaque 300 contrast medium was injected after negative aspiration for CSF, blood or other bodily fluid, showing appropriate neurogram without evidence of intravascular or intrathecal spread of contrast. Digital subtraction imaging was used with an additional 1ml of the same contrast medium to confirm absence of intravascular contrast spread. A 1mL solution containing 5 mg of dexamethasone was injected after negative repeat aspiration. Appropriate spread of the injectate was confirmed with washout of previously injected contrast. No parasthesias were elicited. Needle was removed completely intact without difficulty. The same exact procedure was repeated for all remaining levels on the contralateral side, left L5-S1 neuroforamen, modified as necessary to accommodate for the new target location with identical findings and results and no evidence of complication. Images were saved and documented in the patient chart. Patient's skin was cleaned and sterile bandage applied. The patient tolerated the procedure well. The patient was transported to the recovery area in stable condition where they were observed for an appropriate amount of time prior to discharge, without evidence of complication. The patient was instructed to avoid excessive activity for the next 48 hours, including climbing and frequent use of stairs. Showers only for 48 hours. They were instructed not to drive or operate heavy machinery for 24 hours. They are to monitor for severe headaches, fevers, chills, night sweats, erythema/swelling at the site or any other signs of infection, bleeding/bruising, bowel or bladder changes as well as new pain, weakness or numbness in the upper or lower extremity. Should they notice these changes, they are instructed to call our office immediately or report directly to the nearest Emergency Department if no answer or if after posted office hours. COMPLICATIONS: None
[2023-06-08 08:06] VITALS: BP 134/70; PULSE 85; RESP 20; O2SAT 100
== END 2023-06-08 08:21 | disposition home or self-care (01) ==
PROVIDERS: PCP Family Medicine; Visit Provider Anesthesiology Pain Medicine
PROC: (CPT 64483; principal; 2023-06-08 07:30)
DX: M54.16 Radiculopathy, lumbar region (principal)
CPT/HCPCS: 64483 ×2; 99199

== ENCOUNTER 2023-07-20 06:13 | Day surgery (SDC) | payer MEDICARE, SELFPAY ==
--- NOTE | ~2023-07-20 | XR_ITS ---
EXAMINATION: XR fluoroscopy no charge INDICATION: Bilateral sacroiliac joint steroid injection TECHNIQUE: Seven fluoroscopic images are submitted for review. Total fluoroscopic time was 81.6 secon ds COMPARISON: None available FINDINGS: Fluoroscopic images demonstrate bilateral sacroiliac joint injections. Please refer to proc edure note for full details. IMPRESSION: 1. Bilateral sacroiliac joint injections. Please refer to procedure note for full details. Reviewed, dictated and finalized at location L. IMPRESSION: 1. Bilateral sacroiliac joint injections. Please refer to procedure note for fu ll details.
[2023-07-20 06:51] VITALS: BP 138/78; PULSE 86; RESP 20; TEMP 36.8; O2SAT 98
--- NOTE | 2023-07-20 07:14 | WPDHPUPDATE1 ---
History and Physical Update Update Date/Time: 07/20/23 07:14 History and Physical has been reviewed, including an updated exam of the patient. There are NO changes in the patient's condition. Risks, benefits, and alternatives have been discussed and questions answered. Patient agrees to proceed with procedure.
[2023-07-20 07:45] VITALS: BP 164/95; PULSE 88; RESP 20; O2SAT 97
[2023-07-20 07:55] VITALS: BP 157/73; PULSE 87; RESP 20; O2SAT 96
[2023-07-20] MEDS: BUPivacaine HCL 0.5% 10 ML AMP 4 ML INFILTRATE (07:56)
[2023-07-20] MEDS: LIDOCAINE HCL 1% PF INJ 5 ML VIAL 3 ML XX (07:56)
--- NOTE | 2023-07-20 08:00 | W.PM.PROC2 ---
Procedure Note - Detailed Date of Procedure 07/20/23 Pre-op Diagnosis Sacroiliitis, Lumbosacral Spondylosis, Dorsalgia Post-op Diagnosis Same Procedure Performed BilateralSI joint steroid injection under fluoroscopy Surgeon Amor Steiner MD Anesthesia Local Indications Bilateral low back/buttock pain Description of Procedure INFORMED CONSENT: Risks, benefits and alternatives to the procedure were discussed in detail with the patient who expressed explicit understanding and consent to proceed. Patient was informed verbally and in written form regarding the risks associated with the procedure including the low risk of serious infection, bleeding/bruising, allergic reaction, nerve or organ injury, paralysis, procedural site pain or discomfort, worsening pain and/or mobility, failure to treat and/or disfigurement. The patient expressed explicit understanding and consent to proceed. All materials required for the procedure were available prior to procedure start. Site and side were marked prior to procedure and confirmed in the presence of the patient. PROCEDURE IN DETAIL: The patient was brought to the procedural suite and placed in the prone position. Patient was made comfortable with use of pillows under the head/chest, hips and ankles. Skin overlying the injection site on the affected side(s) was prepared broadly with ChloraPrep applicator and draped in a sterile manner. Aseptic technique was used throughout. The SI joint was identified in the AP view and contralateral oblique angulation with caudal tilt was utilized to optimize visualization of the inferior and medial joint line representing the posterior portion of the joint. Local anesthesia was established by infiltration with approximately 5 mL of 2% lidocaine via a 1-1/2 inch 27-gauge needle. A 22-gauge 3.5 inch Quincke spinal needle was advanced until the needle entered the inferior third of the joint space approximately 1cm cephalad from its most inferior point. In the AP view, 0.5 mL of Omnipaque 300 contrast medium was injected after negative aspiration for CSF, blood or other bodily fluid, showing appropriate intra-articular spread of contrast without evidence of intravascular, perineural or intrathecal placement. A 1.0 mL solution containing 5.0 mg of dexamethasone in 0.5% PF bupivacaine was injected after repeat negative aspiration. Appropriate spread of the injectate was confirmed with washout of previous injected contrast. No parasthesias were elicited. Needle was removed completely intact without difficulty. [The same exact procedure was repeated for all remaining levels on the contralateral side, Left SI joint, modified as necessary to accommodate for the new target location with identical findings/results and no evidence of complication.] Images were saved and documented in the patient chart. Patient's skin was cleansed and sterile bandage applied. The patient tolerated the procedure well. The patient was transported to the recovery area in stable condition where they were observed for an appropriate amount of time prior to discharge, without evidence of complication. The patient was instructed to avoid excessive activity for the next 48 hours, including climbing and frequent use of stairs. Showers only for 48 hours. They were instructed not to drive or operate heavy machinery for 24 hours. They are to monitor for severe headaches, fevers, chills, night sweats, erythema/swelling at the site or any other signs of infection, bleeding/bruising, bowel or bladder changes as well as new pain, weakness or numbness in the upper or lower extremity. Should they notice these changes, they are instructed to call our office immediately or report directly to the nearest Emergency Department if no answer or if after posted office hours. COMPLICATIONS: None COMMENTS: None EXPOSURE: Time: 81.6s, Dose: 28.14mGy CONTRAST WASTED: 29.0mL Omnipaque 300. Complications None Condition Stable Disposition
[2023-07-20 08:02] VITALS: BP 145/73; PULSE 83; RESP 16; TEMP 36.3; O2SAT 100
== END 2023-07-20 08:25 | disposition home or self-care (01) ==
PROVIDERS: PCP Family Medicine; Visit Provider Anesthesiology Pain Medicine
PROC: (CPT G0260; principal; 2023-07-20 07:30)
DX: M46.1 Sacroiliitis, not elsewhere classified (principal); M47.817 Spondylosis without myelopathy or radiculopathy, lumbosacral region
CPT/HCPCS: G0260 ×2; 27096; 99199

== ENCOUNTER 2023-07-26 12:51 | Outpatient (CLI) | payer MEDICARE, SELFPAY | END 2023-07-26 12:52 | disposition home or self-care (01) | LOC: ANHAUDASC 12:51 | PROVIDERS: PCP Family Medicine; Visit Provider Otolaryngology | DX: H90.3 Sensorineural hearing loss, bilateral (principal) | CPT/HCPCS: 92557; 92567 ==

== ENCOUNTER 2023-08-24 11:00 | Outpatient (RCR) | payer MEDICARE, SELFPAY ==
--- NOTE | 2023-05-14 09:04 | PCPTNOTE ---
Patient called & cancelled scheduled appointment this date due to having a stomach bug.
--- NOTE | 2023-05-26 15:35 | OPREHPOC ---
Outpatient Therapy Plan of Care This is a Multidisciplinary Plan of Care that may contain components documented by all disciplines (PT, OT, and ST.) PT Problem 1 PT Problem #1 Knowledge Deficit PT Goal 1 Goal Pt to be IND with HEP Target Visit 8 PT Problem 2 PT Problem #2 Pain PT Goal 1 Goal Pt to report low back pain no greater than 4/10 in the last week Target Visit 8 PT Goal 2 Goal Pt to be able to stand for 10 mins without needing to sit down Target Visit 8 PT Problem 3 PT Problem #3 Pain PT Goal 1 Goal Pt to reports 50% improvement in overall symptoms Target Visit 8 PT Problem 4 PT Problem #4 Impaired Gait PT Goal 1 Goal Pt to improve 2 min walking distance from 160ft to 250ft with use of rollator Target Visit 8 PT Goal 2 Goal Pt to be able to ambulate 100ft without need for AD Target Visit 8 PT Problem 5 PT Problem #5 Impaired Strength PT Goal 1 Goal Pt to improve hip strength to grossly 4+/5 Target Visit 8 PT Goal 2 Goal Pt to demonstrate 5xSTS in less than 25s Target Visit 8
--- NOTE | 2023-05-26 15:35 | PTOPEVAL1 ---
Assessment and note entered by Rsoeann Sterling, PT, DPT Evaluation Information Assessment Status Evaluation Diagnosis dorsalgia Onset chronic Subjective Information Pt states she has had back pain for a very long time. 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 She states 7 years ago she was working 2 jobs and dancing 2-3 days a week. She states she has been getting pain shots for about 4 years without much relief. Pt ended up having a lumbar fusion last January, without any relief. She ambulates into the clinic today with a rollator and states she has been using this since her surgery. She states she is limited today about 3-4 minutes of standing and ambulating only household distances, she guesses about 30ft. She reports no limitations sitting, she sleeps in a recliner. She states with prolonged standing her R leg will go numb. Reported Pain Level Pain Score 0: Self Report Assessment PT Clinical Summary Petra presents to therapy today for her initial evaluation with a diagnosis of dorsalgia following a L5-S1 fusion. Today she demonstrates standing and walking tolerance that is limited by back pain . She demonstrates hip weakness as well as core weakness. In standing pt has an increased lumbar lordosis. Skilled therapy services are indicated to address the deficits noted above, to improve core strength, to improve body awareness/mechanics , to manage pain, and to promote unlimited functional mobility. Plan of Care Interventions Electrical Stimulation,Gait Training,Hot Pack/Cold Pack,Manual Therapy,Neuro Re-education,Patient/ Caregiver Educati,Therapeutic Activities, Therapeutic Exercise PT Services Indicated Yes Treatment Frequency and 2x/wk for 4 wks Duration These treatments will address the objective and functional deficits as defined above. The patient will be advanced safely and appropriately in order for the patient to progress towards his/her prior level of function. Additional exercises will be introduced and as well as a comprehensive home exercise program upon discharge, if needed, ?to ensure carryover of functional gains achieved in the clinic. This treatment plan has been reviewed and agreement upon by the patient.
--- NOTE | 2023-06-24 14:42 | PTOPPROG ---
Assessment and note entered by Roseann Sterling, PT, DPT Evaluation Information Assessment Status Progress Diagnosis dorsalgia Onset chronic Subjective Information Pt states overall she thinks things are going really well and she is moving around better. She states she did get an epidural but has not seen any results from this. She is also being treated for vertigo. She states she is doing more walking and more exercise than she did before. She states she still uses the rollator and would like to get off of this. She states her decreased mobility has been for about 5 years. 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 Assessment PT Clinical Summary Petra presents to therapy today for her progress report following 8 visits of skilled therapy to treat her diagnosis of dorsalgia following a L5-S1 fusion. Today she demonstrates improved gait speed with rollator and improved gait distance without rollator. She demonstrates minimal improvement in her pain reports and gross muscle strength but improvements in her functional strength. Continuation of skilled therapy services are indicated to continue progressing towards therapy goals, to improve strength and mobility, and to return to [facility]. Plan of Care Interventions Electrical Stimulation,Gait Training,Hot Pack/Cold Pack,Manual Therapy,Neuro Re-education,Patient/ Caregiver Educati,Therapeutic Activities, Therapeutic Exercise PT Services Indicated Yes Treatment Frequency and 2x/wk for 4 wks Duration These treatments will address the objective and functional deficits as defined above. The patient will be advanced safely and appropriately in order for the patient to progress towards his/her prior level of function. Additional exercises will be introduced and as well as a comprehensive home exercise program upon discharge, if needed, ?to ensure carryover of functional gains achieved in the clinic. This treatment plan has been reviewed and agreement upon by the patient.
--- NOTE | 2023-07-15 10:23 | PCPTNOTE ---
Patient called and left voicemail stating she needed to cancel this date.
--- NOTE | 2023-07-20 16:10 | PCPTNOTE ---
Patient was called for reminder appointment and states she is getting and injection today and cannot make appointment.
--- NOTE | 2023-07-27 16:28 | PTOPPROG ---
Assessment and note entered by Roseann Sterling, PT, DPT Evaluation Information Assessment Status Progress Diagnosis dorsalgia Onset chronic Subjective Information Pt states she had an injection in her SIJ last Wednesday and has not noticed any difference in her pain since. She states her back pain has moments of being better but not a huge change pain love. She does She states her mobility has improved a lot since starting therapy. She reports daily compliance with her HEP. She reports not using the walker at home when walking short distances. 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 She states she has been getting out of the house more. Assessment PT Clinical Summary Petra presents to therapy today for her progress report following 15 visits of skilled therapy to treat her diagnosis of dorsalgia following a L5-S1 fusion. She demonstrates minimal improvement in her pain reports but reports her overall functional has improved. She continues to have decreased balance and impaired mobility from her baseline. Continuation of skilled therapy services are indicated to continue progressing towards therapy goals, to improve strength and mobility, and to return to PLOF. Plan of Care Interventions Electrical Stimulation,Gait Training,Hot Pack/Cold Pack,Manual Therapy,Neuro Re-education,Patient/ Caregiver Educati,Therapeutic Activities, Therapeutic Exercise PT Services Indicated Yes Treatment Frequency and 2x/wk for 8 visits Duration These treatments will address the objective and functional deficits as defined above. The patient will be advanced safely and appropriately in order for the patient to progress towards his/her prior level of function. Additional exercises will be introduced and as well as a comprehensive home exercise program upon discharge, if needed, ?to ensure carryover of functional gains achieved in the clinic. This treatment plan has been reviewed and agreement upon by the patient.
--- NOTE | 2023-08-24 13:43 | PTOPDC ---
Assessment and note entered by Roseann Setrling, PT, DPT Evaluation Information Assessment Status Discharge Diagnosis dorsalgia Onset chronic Subjective Information Pt states things are going well with therapy. She states she is feeling stronger each week. She states her balance is improving too but still not where it needs to be. Pt reports 25% improvement in over overall symptoms Reported Pain Level Pain Score 0: Self Report Assessment PT Clinical Summary Petra presents to therapy today for her progress report following 20 visits of skilled therapy to treat her diagnosis of dorsalgia following a L5-S1 fusion. Today she continues to report and demonstrates minimal improvement in her pain reports. She has improved her gait, strength, and overall function and is now no longer at an increased risk of falls her the TUG and 5xSTS. D/t pts unchanged pain, she will be discharged from skilled therapy services at this time. Plan of Care PT Services Indicated No
== END 2023-08-24 15:12 | disposition home or self-care (01) ==
LOC: ANHGOSHPT 11:00
PROVIDERS: Visit Provider Anesthesiology Pain Medicine
DX: M47.817 Spondylosis without myelopathy or radiculopathy, lumbosacral region (principal); M48.062 Spinal stenosis, lumbar region with neurogenic claudication; M96.1 Postlaminectomy syndrome, not elsewhere classified; E66.01 Morbid (severe) obesity due to excess calories
CPT/HCPCS: 97110; 97112; 97116; 97161; 97530

== ENCOUNTER 2023-09-07 07:24 | Day surgery (SDC) | payer MEDICARE, SELFPAY ==
[2023-08-27 09:24] VITALS: BMI 38.1
[2023-08-31 09:38] VITALS: BMI 37.8
--- NOTE | ~2023-09-07 | XR_ITS ---
XR fluoroscopy no charge Procedure: Bilateral L2, L3 and L4 medial branch block TECHNIQUE: Fluoroscopy used during Bilateral L2, L3 and L4 medial branch block performed by [Jaylan Steiner MD] on 09/07/2023. 29 seconds of fluoroscopy with 10 fluoroscopic images captured. FINDINGS: Correlate with procedure note. IMPRESSION: Fluoroscopy used during Bilateral L2, L3 and L4 medial branch block. Reviewed, dictated and finalized at location B. IMPRESSION: Fluoroscopy used during Bilateral L2, L3 and L4 medial branch block .
--- NOTE | 2023-09-07 05:14 | WPDHPUPDATE1 ---
History and Physical Update Update Date/Time: 09/07/23 05:14 History and Physical has been reviewed, including an updated exam of the patient. There are NO changes in the patient's condition. Risks, benefits, and alternatives have been discussed and questions answered. Patient agrees to proceed with procedure.
--- NOTE | 2023-09-07 05:14 | PM.HPGS ---
History of Present Illness History of Present Illness Consent: Risks, benefits, and alternatives have been discussed and questions answered. Patient agrees to proceed with procedure. Chief complaint: Lumbar Spinal Stenosis Narrative: Petra Paula is a 68 year old female With recalcitrant, chronic axial low back pain related to lumbar facet syndrome with documented lumbosacral spondylosis and previous back surgery resulting in chronic axial low back pain despite physical therapy, oral and topical analgesics, SI joint steroid injections, rest and time. Patient is presenting for diagnostic/prognostic medial branch blocks of the lower lumbar facets above her prior fusion with intent to proceed with confirmatory blocks prior to thermal radiofrequency ablation depending upon response. Review of Systems Review of Systems: All systems reviewed & are unremarkable except as noted in HPI and below PMFSH Past Medical History Medical History CAD in [place] artery Cataract 2014 Chronic low back pain Chronic right shoulder pain Dizziness Essential (primary) hypertension Hearing loss in right ear History of kidney stones 2013 History of stroke Peripheral neuropathy Stroke may 2017 Tinnitus Type 2 diabetes mellitus with diabetic neuropathy Surgical History Surgical History History of carpal tunnel surgery of right wrist History of coronary artery stent placement 10/2017 x3 times History of lumbar laminectomy (~12/2021) Dr Encarnacion at [facility] Hx of decompressive lumbar laminectomy (~01/26/22) L5-S1 decompressive laminectomy with fusion - Dr Encarnacion at [facility] Social History Social History Social History: Patient lives with her boyfriend in [place]. 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 Caffeine-occasionally Smoking status: Never smoker Second hand tobacco smoke exposure: No Alcohol intake: never Alcohol use details: rarely Substance use: never Substance use type: does not use Lack of Transportation: No Lack of Food: Never True Current Housing: I Have Housing Concerned About Future Housing: No Difficulty Paying Gas/Electric Bills: No Difficulty Paying for Meds: No Currently Unemployed: No Education: High School Diploma/GED Difficulty w/ Childcare or Family Care: No Living arrangements: alone Additional living arrangements comments: Fiance Occupation/Education: retired Gender identity (if verbalized by the patient): Female Sexual Orientation (if Verbalized by the Patient): Straight or Heterosexual Spiritual care concerns: No Agree to blood products: Yes Meds Home Medications and Allergies Home Medications Medication Instructions Recorded Confirmed Type aspirin 81 mg tablet,delayed 81 mg PO DAILY 12/26/19 08/31/23 History release (Aspir-) loratadine 10 mg tablet (Claritin) 10 mg PO DAILY 02/29/20 08/31/23 History mecobalamin (vitamin B12) 1,000 1,000 mcg PO DAILY 02/29/20 08/31/23 History mcg chewable tablet hydrochlorothiazide 12.5 mg capsule 12.5 mg PO DAILY 10/14/22 08/31/23 History ibuprofen 200 mg tablet (Advil) 200 mg PO Q6H PRN Pain 10/14/22 08/31/23 History empagliflozin 25 mg tablet 25 mg PO DAILY #90 tabs 01/28/23 08/31/23 Rx flash glucose scanning reader #1 ea 01/28/23 06/10/23 Rx (FreeStyle Lucille 2 [place]) flash glucose sensor (FreeStyle #2 ea 01/28/23 06/10/23 Rx Lucille 2 Sensor kit) insulin lispro protamine-lispro 32 unit subcut DAILY PRN 04/06/23 07/20/23 History 100 unit/mL (75-25) subcutaneous Hyperglycemia pen (Humalog Mix 75-25 KwikPen) atorvastatin 20 mg tablet 20 mg PO QHS #90 tabs 04/29/23 08/31/23 Rx clopidogrel 75 mg tablet 75 mg PO DAILY #90 tabs 04/29/23 08/31/23 Rx semaglutide
[2023-09-07 09:31] VITALS: BP 132/74; PULSE 83; RESP 16; TEMP 36.6; O2SAT 100
[2023-09-07 10:24] VITALS: BP 151/71; PULSE 85; RESP 16; O2SAT 99
[2023-09-07 10:30] VITALS: BP 143/63; PULSE 84; RESP 16; O2SAT 99
[2023-09-07 10:35] VITALS: BP 133/62; PULSE 84; O2SAT 99
[2023-09-07] MEDS: BUPivacaine HCL 0.5% 10 ML AMP INFILTRATE (10:40)
[2023-09-07] MEDS: LIDOCAINE HCL 1% PF INJ 5 ML VIAL XX (10:40)
[2023-09-07 10:42] VITALS: BP 106/54; PULSE 83; O2SAT 98
[2023-09-07 10:50] VITALS: BP 145/62; PULSE 85; O2SAT 99
--- NOTE | 2023-09-07 11:27 | W.PM.PROC2 ---
Procedure Note - Detailed Date of Procedure 09/07/23 Pre-op Diagnosis lumbar spondylosis, post-laminectomy syndrome, dorsalgia Post-op Diagnosis Same Procedure Performed Bilateral L2, L3, L4 medial branch nerve blocks(#1) under fluoroscopic guidance with contrast control. Surgeon Amor Steiner MD Anesthesia Local Indications chronic, recalcitrant, activity limiting axial low pain secondary to juxta fusional degeneration and lumbosacral spondylosis poorly responsive to more conservative measures. Description of Procedure INFORMED CONSENT: Risks, benefits and alternatives to the procedure were discussed in detail with the patient who expressed explicit understanding and consent to proceed. Patient was informed verbally and in written form regarding the risks associated with the procedure including the low risk of serious infection, bleeding/bruising, allergic reaction, nerve or organ injury, paralysis, procedural site pain or discomfort, worsening pain and/or mobility, failure to treat and/or disfigurement. The patient expressed explicit understanding and consent to proceed. All materials required for the procedure were available prior to procedure start. Site and side were marked prior to procedure and confirmed in the presence of the patient. PROCEDURE IN DETAIL: The patient was brought to the procedural suite and placed in the prone position. Patient was made comfortable with use of pillows under the head/chest, hips and ankles. Skin overlying the injection site on the affected side(s) was prepared broadly with ChloraPrep applicator and draped in a sterile manner. Aseptic technique was used throughout. The endplates of the vertebral bodies at the site(s) of interest were aligned in the AP view. Ipsilateral oblique angulation was utilized to optimize visualization of the intersection between the superior articulating process and transverse process at each target site. Local anesthesia was established by infiltration with approximately 5 mL of 1% lidocaine via a 1-1/2 inch 27-gauge needle. A 25-gauge 3.5 inch Quincke spinal needle was advanced until the needle tip contacted periosteum at the target site, Right L2. Lateral view was utilized to confirm the appropriate placement of the needle tip just anterior to the facet line and superior to the pedicle. In the Lateral view, 0.25 mL of Omnipaque contrast medium was injected after negative aspiration for CSF, blood or other bodily fluid, showing appropriate extra-articular spread of contrast without evidence of intravascular, foraminal or intrathecal placement. A 0.5 mL solution of 0.5% PF bupivacaine was injected after negative repeat aspiration. Appropriate spread of the injectate was confirmed with washout of previously injected contrast. No parasthesias were elicited. Needle was removed completely intact without difficulty. The same exact procedure was repeated for all remaining levels on the ipsilateral side, right L3, L4 medial branches, modified as necessary to accommodate for the new target location with identical findings and results and no evidence of complication. The same exact procedure was repeated for all remaining levels on the contralateral side, right L2, L3, L4 medial branches, modified as necessary to accommodate for the new target location with identical findings and results and no evidence of complication. Images were saved and documented in the patient chart. Patient's skin was cleaned and sterile bandage applied. The patient tolerated the procedure well. The patient was transported to the recovery area in stable condition where they were observed for an appropriate amount of time prior to discharge, without evidence of complication. Patient was instructed on the appropriate completion of a pain diary over the next 12-24 hours. The patient was instructed to avoid excessive activity for the next 48 hours, including climbing and frequent use of stairs. Showers only for 48 hours. The
== END 2023-09-07 11:00 | disposition home or self-care (01) ==
LOC: ASC 08:53
PROVIDERS: PCP Family Medicine; Visit Provider Anesthesiology Pain Medicine
PROC: (CPT 64493; principal; 2023-09-07 10:00)
DX: M47.816 Spondylosis without myelopathy or radiculopathy, lumbar region (principal); M96.1 Postlaminectomy syndrome, not elsewhere classified; M54.59 Other low back pain
CPT/HCPCS: 64493 ×2; 99199

== ENCOUNTER 2023-11-23 06:36 | Day surgery (SDC) | payer MEDICARE, SELFPAY ==
[2023-11-18 13:12] VITALS: BMI 19.9
--- NOTE | ~2023-11-23 | XR_ITS ---
EXAMINATION: XR fluoroscopy no charge DATE: 11/23/2023 10:30 DIRECTOR OF DESIGN INDICATION: JON L2,L3,L4 BLOCK . TECHNIQUE: 11 fluoroscopic images, including cine clips of C6 and 5 images of the lumbar spine were o btained during bilateral L2, L3, and L4 blocks performed by the surgeon. I was not present in the ope rating room. Fluoroscopy exposure time was 35.9 seconds. Air Kerma 15.46 mGy. COMPARISON: 09/07/2023 FINDINGS: Multiple fluoroscopic images document needle access to the bilateral L2, L3, and L4 vertebral levels laterally, followed by contrast injection. IMPRESSION: Fluoroscopic documentation of bilateral L2, L3, and L4 blocks. Please refer to the operative note for complete procedural details . Reviewed, dictated and finalized at location K. CTOR OF DESIGN
--- NOTE | 2023-11-23 09:04 | PM.HPGS ---
History of Present Illness History of Present Illness Consent: Risks, benefits, and alternatives have been discussed and questions answered. Patient agrees to proceed with procedure. Chief complaint: lumbar spondylosis with chronic low back pain Narrative: Petra Paula is a 68 year old female with chronic, disabling, recalcitrant bilateral low back pain secondary to lumbosacral spondylosis unresponsive to maximum conservative therapy to include physical therapy, oral and topical analgesics, opioid and nonopioid analgesics, injections, rest, time and behavior/ activity modification over the past 6-12 months. Patient had a significant and appropriate response to a single set of medial branch blocks and presents for confirmatory blocks. Review of Systems Review of Systems: All systems reviewed & are unremarkable except as noted in HPI and below PMFSH Past Medical History Medical History CAD in [place] artery Cataract 2014 Chronic low back pain Chronic right shoulder pain Dizziness Essential (primary) hypertension Hearing loss in right ear History of kidney stones 2013 History of stroke Peripheral neuropathy Stroke may 2017 Tinnitus Type 2 diabetes mellitus with diabetic neuropathy Surgical History Surgical History History of carpal tunnel surgery of right wrist History of coronary artery stent placement 10/2017 x3 times History of lumbar laminectomy (~12/2021) Dr Encarnacion at [facility] Hx of decompressive lumbar laminectomy (~01/26/22) L5-S1 decompressive laminectomy with fusion - Dr Encarnacion at [facility] Social History Social History Social History: Patient lives with her boyfriend in [place]. 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 Caffeine-occasionally Smoking status: Never smoker Second hand tobacco smoke exposure: No Alcohol intake: current Alcohol use details: rarely Substance use: never Substance use type: does not use Lack of Transportation: No Lack of Food: Never True Current Housing: I Have Housing Concerned About Future Housing: No Difficulty Paying Gas/Electric Bills: No Difficulty Paying for Meds: No Currently Unemployed: No Education: High School Diploma/GED Difficulty w/ Childcare or Family Care: No Living arrangements: with family Additional living arrangements comments: Fiance Occupation/Education: retired Gender identity (if verbalized by the patient): Female Sexual Orientation (if Verbalized by the Patient): Straight or Heterosexual Spiritual care concerns: No Agree to blood products: Yes Meds Home Medications and Allergies Home Medications Medication Instructions Recorded Confirmed Type aspirin 81 mg tablet,delayed 81 mg PO DAILY 12/26/19 09/07/23 History release (Aspir-) loratadine 10 mg tablet (Claritin) 10 mg PO DAILY 02/29/20 11/18/23 History mecobalamin (vitamin B12) 1,000 2,000 mcg PO DAILY 02/29/20 11/18/23 History mcg chewable tablet hydrochlorothiazide 12.5 mg capsule 12.5 mg PO DAILY 10/14/22 11/18/23 History ibuprofen 200 mg tablet (Advil) 200 mg PO Q6H PRN Pain 10/14/22 11/18/23 History flash glucose scanning reader #1 ea 01/28/23 06/10/23 Rx (FreeStyle Lucille 2 [place]) flash glucose sensor (PiperStyle #2 ea 01/28/23 06/10/23 Rx Lucille 2 Sensor kit) insulin lispro protamine-lispro 32 unit subcut DAILY PRN 04/06/23 11/18/23 History 100 unit/mL (75-25) subcutaneous Hyperglycemia pen (Humalog Mix 75-25 KwikPen) semaglutide 2 mg/dose (8 mg/3 mL) 2 mg (0.75 mL) subcut WEEKLY #9 mL 06/03/23 11/18/23 Rx subcutaneous pen injector (Ozempic) lisinopril 10 mg tablet 10 mg PO BID #180 tabs 08/03/23 11/18/23 Rx omeprazole 20 mg capsule,delayed 20 mg PO DAILY #90 caps
--- NOTE | 2023-11-23 09:07 | WPDHPUPDATE1 ---
History and Physical Update Update Date/Time: 11/23/23 09:07 History and Physical has been reviewed, including an updated exam of the patient. There are NO changes in the patient's condition. Risks, benefits, and alternatives have been discussed and questions answered. Patient agrees to proceed with procedure.
[2023-11-23 09:33] VITALS: BP 124/76; PULSE 86; RESP 16; TEMP 36.9; O2SAT 100
[2023-11-23 10:40] VITALS: BP 133/65; PULSE 83; RESP 20; O2SAT 98
[2023-11-23 10:50] VITALS: BP 141/64; PULSE 82; RESP 21; O2SAT 98
[2023-11-23] MEDS: LIDOCAINE HCL 2% PF INJ 5 ML VIAL 3 ML INFILTRATE (10:58)
[2023-11-23] MEDS: LIDOCAINE HCL 1% PF INJ 5 ML VIAL INFILTRATE (10:58)
[2023-11-23 11:00] VITALS: BP 123/64; PULSE 80; RESP 20; O2SAT 98
[2023-11-23 11:04] VITALS: BP 116/62; PULSE 83; RESP 16; O2SAT 99
--- NOTE | 2023-11-23 11:05 | W.PM.PROC2 ---
Procedure Note - Detailed Date of Procedure 11/23/23 Pre-op Diagnosis lumbar spondylosis with chronic low back pain Post-op Diagnosis Same Procedure Performed bilateral L2, L3, L4 medial branch nerve blocks (#2) addressing the bilateral L3-4, L4-5 facet joints under fluoroscopic guidance with contrast control. Surgeon Amor Steiner MD Anesthesia Local Description of Procedure INFORMED CONSENT: Risks, benefits and alternatives to the procedure were discussed in detail with the patient who expressed explicit understanding and consent to proceed. Patient was informed verbally and in written form regarding the risks associated with the procedure including the low risk of serious infection, bleeding/bruising, allergic reaction, nerve or organ injury, paralysis, procedural site pain or discomfort, worsening pain and/or mobility, failure to treat and/or disfigurement. The patient expressed explicit understanding and consent to proceed. All materials required for the procedure were available prior to procedure start. Site and side were marked prior to procedure and confirmed in the presence of the patient. PROCEDURE IN DETAIL: The patient was brought to the procedural suite and placed in the prone position. Patient was made comfortable with use of pillows under the head/chest, hips and ankles. Skin overlying the injection site on the affected side(s) was prepared broadly with ChloraPrep applicator and draped in a sterile manner. Aseptic technique was used throughout. The endplates of the vertebral bodies at the site(s) of interest were aligned in the AP view. Ipsilateral oblique angulation was utilized to optimize visualization of the intersection between the superior articulating process and transverse process at each target site. Local anesthesia was established by infiltration with approximately 5 mL of 1% lidocaine via a 1-1/2 inch 27-gauge needle. A 25-gauge 5.0 inch Quincke spinal needle was advanced until the needle tip contacted periosteum at the target site, right L2. Lateral view was utilized to confirm the appropriate placement of the needle tip just anterior to the facet line and superior to the pedicle. In the Lateral view, 0.25 mL of Omnipaque 300 contrast medium was injected after negative aspiration for CSF, blood or other bodily fluid, showing appropriate extra-articular spread of contrast without evidence of intravascular, foraminal or intrathecal placement. A 0.5 mL solution of 2.0% preservative-free lidocaine was injected after negative repeat aspiration. Appropriate spread of the injectate was confirmed with washout of previously injected contrast. No parasthesias were elicited. Needle was removed completely intact without difficulty. The same exact procedure was repeated for all remaining levels on the ipsilateral side, right L3, L4 medial branches, modified as necessary to accommodate for the new target location with identical findings and results and no evidence of complication. The same exact procedure was repeated for all remaining levels on the contralateral side, left L2, L3, L4 medial branches, modified as necessary to accommodate for the new target location with identical findings and results and no evidence of complication. Images were saved and documented in the patient chart. Patient's skin was cleaned and sterile bandage applied. The patient tolerated the procedure well. The patient was transported to the recovery area in stable condition where they were observed for an appropriate amount of time prior to discharge, without evidence of complication. Patient was instructed on the appropriate completion of a pain diary over the next 12-24 hours. The patient was instructed to avoid excessive activity for the next 48 hours, including climbing and frequent use of stairs. Showers only for 48 hours. They were instructed not to drive or operate heavy machinery for 24 hours. They are to monitor for severe headaches, fevers, chills, n
== END 2023-11-23 11:20 | disposition home or self-care (01) ==
PROVIDERS: PCP Family Medicine; Visit Provider Anesthesiology Pain Medicine
PROC: (CPT 64493; principal; 2023-11-23 10:00)
DX: M47.816 Spondylosis without myelopathy or radiculopathy, lumbar region (principal); M54.59 Other low back pain
CPT/HCPCS: 64493 ×2; 99199

== ENCOUNTER 2023-12-28 10:02 | Outpatient (CLI) | payer MEDICARE, SELFPAY ==
[2023-12-28 10:56] LABS: Anion Gap 7 mmol/L (8-16); Blood Urea Nitrogen 25 mg/dL (7-17); Calcium 9.6 mg/dL (8.4-10.2); Carbon Dioxide 29 mmol/L (22-30); Chloride 104 mmol/L (98-107); Estimated Glomerular Filt Rate > 60; Glucose 108 mg/dL (65-110); Potassium 4.1 mmol/L (3.4-5.0); Sodium 140 mmol/L (137-145)
--- NOTE | 2023-12-28 11:12 | ECG_ITS ---
Measurements Intervals [place] Rate: 84 P: -34 DE: 139 QRS: 10 QRSD: 97 T: 72 QT: 364 QTc: 431 Interpretive Statements SINUS RHYTHM LOW QRS VOLTAGE IN PRECORDIAL LEADS [QRS DEFLECTION < 1.0 mV IN CHEST LEADS] NONSPECIFIC T-WAVE ABNORMALITY NO PREVIOUS ECG AVAILABLE FOR COMPARISON Electronically Signed On 12-28-2023 15:19:38 NEONATAL INTENSIVE CARE NURSE by Ginger Redd M.D.
== END 2023-12-28 10:03 | disposition home or self-care (01) ==
PROVIDERS: PCP Family Medicine; Visit Provider Anesthesiology
DX: Z01.818 Encounter for other preprocedural examination (principal); R93.1 Abnormal findings on diagnostic imaging of heart and coronary circulation
CPT/HCPCS: 36415; 80048; 93005

== ENCOUNTER 2024-01-04 06:08 | Day surgery (SDC) | payer MEDICARE, SELFPAY ==
[2023-12-27 07:58] VITALS: BMI 36.5
--- NOTE | ~2024-01-04 | XR_ITS ---
EXAMINATION: XR fluoroscopy no charge INDICATION: Bilateral L2, L3, and L4 thermal radiofrequency ablation TECHNIQUE: 173 intraoperative fluoroscopic images are submitted for review. Total fluoroscopic time w as 57.8 seconds. COMPARISON: None available FINDINGS: There are changes of anterior and posterior fusion at L5-S1. Fluoroscopic images demonstrat e needles which appear to project in the bilateral L2, L3, and L4 neural foramina. Please refer to pr ocedure note for full details. IMPRESSION: 1. Please refer to procedure note for full details. Reviewed, dictated and finalized at location L. PATIONAL HEALTH PHYSICIAN
--- NOTE | 2024-01-04 06:13 | WPDHPUPDATE1 ---
History and Physical Update Update Date/Time: 01/04/24 06:13 History and Physical has been reviewed, including an updated exam of the patient. There are NO changes in the patient's condition. Risks, benefits, and alternatives have been discussed and questions answered. Patient agrees to proceed with procedure.
--- NOTE | 2024-01-04 06:14 | W.PM.PROC2 ---
Procedure Note - Detailed Date of Procedure 01/04/24 Pre-op Diagnosis lumbar spondylosis, chronic low back pain Post-op Diagnosis Same Procedure Performed bilateral L2, L3, L4 medial branch thermal radiofrequency ablation under fluoroscopic guidance Surgeon Amor Steiner MD Anesthesia MAC and Local Description of Procedure INFORMED CONSENT: Risks, benefits and alternatives to the procedure were discussed in detail with the patient who expressed explicit understanding and consent to proceed. Patient was informed verbally and in written form regarding the risks associated with the procedure including the low risk of serious infection, bleeding/bruising, allergic reaction, nerve or organ injury, paralysis, procedural site pain or discomfort, worsening pain and/or mobility, failure to treat and/or disfigurement. The patient expressed explicit understanding and consent to proceed. All materials required for the procedure were available prior to procedure start. Site and side were marked prior to procedure and confirmed in the presence of the patient. PROCEDURE IN DETAIL: The patient was brought to the procedural suite and placed in the prone position. Patient was made comfortable with use of pillows under the head/chest, hips and ankles. Skin overlying the injection site on the affected side(s) was prepared broadly with ChloraPrep applicator and draped in a sterile manner. Aseptic technique was used throughout. The endplates of the vertebral bodies at the site(s) of interest were aligned in the AP view. Ipsilateral oblique angulation was utilized to optimize visualization of the intersection between the superior articulating process and transverse process at each target site. Local anesthesia was established by infiltration with approximately 5 mL of 1% lidocaine via a 1-1/2 inch 27-gauge needle. An 16-gauge 150mm PBS-Bioian RF needle with curved 10mm active tip was advanced in the AP view until the needle tip contacted the periosteum at the target site, right L2 medial branch. Lateral view was utilized to adjust and confirm the appropriate placement of the needle tip just anterior to the facet line, superior to the pedicle and posterior to the foramen. The appropriately-sized RF cannula was inserted into the RF needle and motor stimulation performed with no subjective or objective evidence of recruited muscle activity with stimulation up to 3.0 volts at a frequency of 2Hz. 1.0 mL of 2.0% PF lidocaine was injected after negative aspiration. Grounding electrode in place and functioning. After a 90s pause, lesioning was performed to 90 degrees centigrade for 90s ensuring lack of symptoms in the extremity throughout. Needle was rotated 180 degrees and lesioning repeated in a similar manner. Patient tolerated this well. No parasthesias were elicited. Needle was removed completely intact without difficulty. The same procedure was repeated for all intended levels/ structures on the ipsilateral side, right L3, L4 medial branches, with identical methodology, modified to compensate for new location, with similar results and no evidence of complication. The same exact procedure was repeated for all remaining levels on the contralateral side, left L2, L3, L4 medial branches, modified as necessary to accommodate for the new target location with identical findings/results and no evidence of complication. Images were saved and documented in the patient chart. Patient's skin was cleansed and sterile bandage applied. The patient tolerated the procedure well. The patient was transported to the recovery area in stable condition where they were observed for an appropriate amount of time prior to discharge, without evidence of complication. The patient was instructed to avoid excessive activity for the next 48 hours, including climbing and frequent use of stairs. Showers only for 48 hours. They were instructed not to drive or operate heavy machinery for 24 hours. They are to monit
[2024-01-04 06:35] VITALS: BP 137/69; PULSE 84; RESP 20; TEMP 36.7; O2SAT 100
--- NOTE | 2024-01-04 06:51 | WPDANESEPPF ---
Anes - Initial Pre Proc Eval Procedure: Operation Date: 01/04/24 08:00 Proposed Procedures p Bilateral L2, L3, L4 Medial Branch Thermal Radiofrequency Ablation Denervating Right L3-4, L4-5 Facet Joint under Fluoroscopic Guidance - Amor Steiner MD Date/Time: 01/04/24 06:51 Surgeon: Amor Steiner MD Pre Op Diagnosis: Lumbar Spinal Stenosis w/Neurogenic Claudication Patient Data Age: 68 Gender: F Height: 1.61 m Weight: 95 kg Allergies Allergy/AdvReac Type Severity Reaction Status Date / Time morphine AdvReac Severe Nausea and Verified 01/04/24 07:03 Vomiting Penicillins AdvReac Mild yeast Verified 01/04/24 07:03 infection metformin AdvReac Unknown Nausea and Verified 01/04/24 07:03 Vomiting Home Medications Medication Instructions Recorded Confirmed Type aspirin 81 mg tablet,delayed 81 mg PO DAILY 12/26/19 01/04/24 History release (Aspir-) loratadine 10 mg tablet (Claritin) 10 mg PO DAILY 02/29/20 12/24/23 History mecobalamin (vitamin B12) 1,000 2,000 mcg PO DAILY 02/29/20 12/24/23 History mcg chewable tablet hydrochlorothiazide 12.5 mg capsule 12.5 mg PO DAILY 10/14/22 12/24/23 History ibuprofen 200 mg tablet (Advil) 200 mg PO Q6H PRN Pain 10/14/22 12/24/23 History flash glucose scanning reader #1 ea 01/28/23 06/10/23 Rx (FreeStyle Lucille 2 Lisle) flash glucose sensor (FreeStyle #2 ea 01/28/23 06/10/23 Rx Lucille 2 Sensor kit) semaglutide 2 mg/dose (8 mg/3 mL) 2 mg (0.75 mL) subcut WEEKLY #9 mL 06/03/23 12/24/23 Rx subcutaneous pen injector (Ozempic) lisinopril 10 mg tablet 10 mg PO BID #180 tabs 08/03/23 12/24/23 Rx atorvastatin 20 mg tablet 20 mg PO QHS #90 tabs 09/17/23 12/24/23 Rx clopidogrel 75 mg tablet 75 mg PO DAILY #90 tabs 09/17/23 01/04/24 Rx cholecalciferol (vitamin D3) 25 25 mcg PO DAILY 10/26/23 12/24/23 History mcg (1,000 unit) capsule empagliflozin 25 mg tablet 25 mg PO DAILY 11/18/23 12/24/23 History (Jardiance) gabapentin 300 mg capsule 300 mg PO BID #180 caps 11/22/23 01/04/24 Rx metoprolol succinate 25 mg 37.5 mg PO DAILY #135 tabs 11/22/23 01/04/24 Rx tablet,extended release 24 hr omeprazole 20 mg capsule,delayed 20 mg PO DAILY #90 caps 12/13/23 01/04/24 Rx release insulin lispro protamine-lispro 12 unit (0.12 mL) subcut BID #15 mL 01/03/24 01/04/24 Rx 100 unit/mL (75-25) subcutaneous pen (Humalog Mix 75-25 KwikPen) Patient hx anesthesia problems: none Family hx anesthesia problems: none Results Review: All pre-operative results and documents have been reviewed as part of the pre-operative evaluation. [facility] Past Medical History Medical History CAD in [place] artery Cataract 2014 Chronic low back pain Chronic right shoulder pain Dizziness Essential (primary) hypertension Hearing loss in right ear History of kidney stones 2013 History of stroke Peripheral neuropathy Stroke may 2017 Tinnitus Type 2 diabetes mellitus with diabetic neuropathy Surgical History Surgical History History of carpal tunnel surgery of right wrist History of coronary artery stent placement 10/2017 x3 times History of lumbar laminectomy (~12/2021) Dr Encarnacion at [facility] Hx of decompressive lumbar laminectomy (~01/26/22) L5-S1 decompressive laminectomy with fusion - Dr Encarnacion at [facility] Social History Social History Social History: Patient lives with her boyfriend in [place]. 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 Caffeine-occasionally Smoking status: Never smoker Second hand tobacco smoke exposure: No Alcohol intake: current Alcohol use details: rarely Substance use: never Substance use type: does not use Lack of Transportation: No Lack of Food: Nev
[2024-01-04 06:56] LABS: Glucose Point of Care 150 mg/dl (65-105)
[2024-01-04] MEDS: LACTATED RINGERS 1,000 ML 30 ML IV CONT (07:11)
[2024-01-04] MEDS: LIDOCAINE HCL 2% PF INJ 5 ML VIAL 10 ML INFILTRATE (09:00)
[2024-01-04] MEDS: LIDOCAINE HCL 1% PF INJ 5 ML VIAL XX (09:00)
[2024-01-04] MEDS: BUPivacaine HCL 0.5% 10 ML AMP INFILTRATE (09:00)
[2024-01-04 09:16] VITALS: BP 94/55; PULSE 80; RESP 16; O2SAT 100
[2024-01-04 09:26] VITALS: BP 119/68; PULSE 80; RESP 16; O2SAT 100
--- NOTE | 2024-01-04 09:27 | WPDANESPN ---
Anes - Prog Note Post-Op Date/Time: 01/04/24 09:27 Cardiovascular status: normal Respiratory status: normal Airway patency: baseline Mental status: baseline Post-Op hydration status: normal Vital Signs: Last Vital Signs Temp 36.7 C 01/04/24 06:35 Pulse 80 01/04/24 09:16 Resp 16 01/04/24 09:16 BP 94/55 L 01/04/24 09:16 Pulse Ox 100 01/04/24 09:16 O2 Del Method Room Air 01/04/24 09:16 Pain Score (VAS): 0 I/O: Intake & Output 01/03/24 01/04/24 01/04/24 23:59 07:59 15:59 Intake Total 300 Balance 300 01/04/24 06:52 POC Capillary Glucose 150 H Post-procedural complaints: none Patient Feedback: Patient satisfied with anesthetic care. Other Findings: Patient vital signs back to baseline. Patient denies nausea and vomiting. Patient's pain under control. Patient OK for discharge.
[2024-01-04 09:36] VITALS: BP 116/74; PULSE 75; RESP 16; O2SAT 99
[2024-01-04 09:46] VITALS: BP 116/74; PULSE 75; RESP 16; O2SAT 99
== END 2024-01-04 09:57 | disposition home or self-care (01) ==
PROVIDERS: PCP Family Medicine; Visit Provider Anesthesiology Pain Medicine
PROC: (CPT 64635; principal; 2024-01-04 08:00)
DX: M47.817 Spondylosis without myelopathy or radiculopathy, lumbosacral region (principal); M54.59 Other low back pain
CPT/HCPCS: 64635 ×2; 99199

== ENCOUNTER 2024-07-04 13:32 | Outpatient (CLI) | payer MEDICARE, SELFPAY ==
[2024-07-04 14:40] LABS: Anion Gap 9 mmol/L (4-12); Blood Urea Nitrogen 29 mg/dL (7-17); Calcium 8.9 mg/dL (8.4-10.2); Carbon Dioxide 33 mmol/L (22-30); Chloride 97 mmol/L (98-107); Estimated Glomerular Filt Rate > 60; Glucose 131 mg/dL (65-110); Potassium 4.1 mmol/L (3.4-5.0); Sodium 139 mmol/L (137-145)
== END 2024-07-04 13:33 | disposition home or self-care (01) ==
PROVIDERS: Anesthesiology; PCP Family Medicine; Visit Provider Anesthesiology Pain Medicine
DX: E11.40 Type 2 diabetes mellitus with diabetic neuropathy, unspecified (principal)
CPT/HCPCS: 36415; 80048

== ENCOUNTER 2024-07-10 00:27 | Day surgery (SDC) | payer MEDICARE, SELFPAY ==
[2024-07-04 11:06] VITALS: BMI 39.0
--- NOTE | 2024-07-04 11:38 | PC.NURSE ---
Report to the Outpatient Waiting Room, entrance under the green pavilion located off [facility], at time __10:00AM on date ___07/10/24____. Planned Procedure Time: __12:00PM . Time changes happen often and if your time is changed the preop area will call you the afternoon before. - You and your visitor will be asked to self-screen and do not enter if you have any COVID symptoms. - A mask is optional within the hospital at this time. - No food/drinks after midnight until time of surgery. Take the following medications with a SIP of water the morning of surgery: ____METOPROLOL, GABAPENTIN AND 1/2 DOSE AM INSULIN(15 UNITS). MAY TAKE TRAMADOL NEEDED FOR PAIN. DO NOT STOP ANY OF YOUR OTHER PRESCRIPTION MEDICATIONS PRIOR TO SURGERY ?EXCEPT THE FOLLOWING Medications to discontinue per physician ___HOLD PLAVIX AND ASPIRIN 7 DAYS PRE-OP PER DR PARKS, PER PATIENT-LAST DOSE 07/02/24. HOLD ALL VITAMINS/SUPPLEMENTS 3 DAYS PRE-OP PER ANESTHESIA- LAST DOSE 07/06/24. Please no make-up, nail indonesian, hairspray, perfume, deodorant, or body powder the day of surgery. No jewelry (including any body piercings) or valuables the day of surgery, leave them at home. Please take a shower or bath the night before, or the morning of, surgery with an antibacterial soap. Wear comfortable, loose fitting clothing. - Jewelry must be removed prior to entering the operating room. Rings and piercings that are not removed may be cut off. - The hospital will not accept responsibility for valuables. - Please leave all valuables, including medications, at home the day of surgery. If you are going home after surgery, a licensed peg driver must drive you home. - NO public transportation without another adult if you receive anesthesia. - We recommend that an adult stay with you for 24 hours following discharge. - We also recommend that you do not drive, make important decision, drink alcoholic beverages, or take any drugs that were not prescribed by your health care provider for at least 24 hours after your discharge time. Follow any additional instructions given to you from your surgeon. TAKE BATH OR SHOWER NIGHT BEFORE AND MORNING OF SURGERY PER DR PARKS If you or anyone in your household have experienced Covid symptoms in the past week, please notify your surgeon or the nurse liaison at the phone number below for possible testing. Telephone instructions given to __patient and asked if any additional questions and then verbalized understanding. Patient advised to call surgeon office or pre surgery nurse liaison [phone] if any additional questions.
--- NOTE | ~2024-07-10 | XR_ITS ---
EXAMINATION: XR fluoroscopy no charge DATE: 07/10/2024 12:11 INDICATION: Lumbar spondylosis. TECHNIQUE: 6 intraoperative fluoroscopic views of the lumbar spine were obtained. I was not present. Fluoroscopy exposure time was 4 minutes and 9 seconds. COMPARISON: Lumbar spine MRI 05/13/2023 FINDINGS: Multiple images demonstrate displacement of epidural electrodes with tips in the thoracic s pine. IMPRESSION: 1. Placement of epidural electrodes. Reviewed, dictated and finalized at location A.
--- NOTE | 2024-07-10 06:06 | PM.HPGS ---
History of Present Illness History of Present Illness Consent: Risks, benefits, and alternatives have been discussed and questions answered. Patient agrees to proceed with procedure. Chief complaint: lumbosacral radiculopathy, chronic pain Narrative: Petra Paula is a 69 year old female with chronic, recalcitrant and disabling bilateral low back and lower extremity pain secondary to degenerative spondylosis, spinal stenosis with neurogenic claudication, lumbar radiculopathy with failure to respond to aggressive conservative measures including PT, oral and topical analgesics, opioid and nonopioid analgesics, rest, time and activity/behavioral modification over the past 1-2 years who presents for temporary placement of 2 percutaneous epidural stimulation leads under fluoroscopic guidance for spinal cord stimulation trial. Review of Systems Review of Systems: Patient denies any new infectious, allergic, cardiopulmonary, neurologic or constitutional symptoms or changes in activity tolerance or exercise capacity including new or progressive SOB/GLASS, peripheral edema, productive cough, dysuria, nausea/vomiting, diarrhea, weight change, fevers/chills/night sweats, new or progressive neurologic deficit, cognitive or mood changes since last seen, except as documented in the HPI. All systems reviewed & are unremarkable except as noted in HPI and below PMFSH Past Medical History Medical History CAD in [place] artery Cataract 2014 Chronic low back pain Chronic right shoulder pain Dizziness Essential (primary) hypertension Hearing loss in right ear History of kidney stones 2013 History of stroke Peripheral neuropathy Stroke may 2017 Tinnitus Type 2 diabetes mellitus with diabetic neuropathy Surgical History Surgical History History of carpal tunnel surgery of right wrist History of coronary artery stent placement 10/2017 x3 times History of lumbar laminectomy (~12/2021) Dr Encarnacion at [facility] Hx of decompressive lumbar laminectomy (~01/26/22) L5-S1 decompressive laminectomy with fusion - Dr Encarnacion at [facility] Social History Social History Social History: Patient lives with her boyfriend in [place]. 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 Caffeine-occasionally Smoking status: Never smoker Second hand tobacco smoke exposure: No Alcohol intake: current Alcohol use details: rarely Substance use: never Substance use type: does not use Lack of Transportation: No Lack of Food: Never True Current Housing: I Have Housing Concerned About Future Housing: No Difficulty Paying Gas/Electric Bills: No Difficulty Paying for Meds: No Currently Unemployed: No Education: High School Diploma/GED Difficulty w/ Childcare or Family Care: No Living arrangements: with family Additional living arrangements comments: ALONE BUT FIANCE IS THERE FREQUENTLY Occupation/Education: retired Gender identity (if verbalized by the patient): Female Sexual Orientation (if Verbalized by the Patient): Straight or Heterosexual Spiritual care concerns: No Agree to blood products: Yes Meds Home Medications and Allergies Home Medications Medication Instructions Recorded Confirmed Type aspirin 81 mg tablet,delayed 81 mg PO DAILY 12/26/19 07/04/24 History release (Aspir-) loratadine 10 mg tablet (Claritin) 10 mg PO DAILY 02/29/20 07/04/24 History mecobalamin (vitamin B12) 1,000 2,000 mcg PO DAILY 02/29/20 07/04/24 History mcg chewable tablet hydrochlorothiazide 12.5 mg capsule 12.5 mg PO DAILY 10/14/22 07/04/24 History ibuprofen 200 mg tablet (Advil) 200 mg PO Q6H PRN Pain 10/14/22 07/04/24 History flash glucose scanning reader #1 ea 01/28/
--- NOTE | 2024-07-10 06:10 | WPDHPUPDATE1 ---
History and Physical Update Update Date/Time: 07/10/24 06:10 History and Physical has been reviewed, including an updated exam of the patient. There are NO changes in the patient's condition. Risks, benefits, and alternatives have been discussed and questions answered. Patient agrees to proceed with procedure.
--- NOTE | 2024-07-10 06:43 | W.PM.PROC2 ---
Procedure Note - Detailed Date of Procedure 07/10/24 Pre-op Diagnosis post-laminectomy syndrome, lumbosacral radiculopathy Post-op Diagnosis Same Procedure Performed Percutaneous Epidural Placement of Two Medtronic Spinal Cord Stimulation Leads under Fluoroscopic Guidance for Trial with Complex Intraoperative Programming (>1 Hour). Surgeon Amor Steiner MD Anesthesia Local Description of Procedure INFORMED CONSENT: Risks, benefits and alternatives to the procedure were discussed in detail with the patient who expressed explicit understanding and consent to proceed. Patient was informed verbally and in written form regarding the risks associated with the procedure including the low risk of serious infection, meningitis, dural puncture requiring treatment or surgical repair, headache, severe bleeding/bruising, allergic reaction, nerve or organ injury, paralysis, procedural site pain or discomfort, worsening pain and/or mobility, failure to treat and/or disfigurement. The patient expressed explicit understanding and consent to proceed. All materials required for the procedure were available prior to procedure start. Site and side were marked prior to procedure and confirmed in the presence of the patient. PROCEDURE IN DETAIL: The patient was brought to the procedural suite and placed in the prone position. Patient was made comfortable with use of pillows under the head/chest, hips and ankles. Skin overlying the injection site was wiped with alcohol and prepared broadly with 3 applications of a ChloraSept scrub. Patient draped in the usual sterile manner. Aseptic technique was employed throughout. The endplates of the vertebral body at the site of interest were aligned in the AP view. Slight caudal tilt angulation was utilized to optimize visualization of the targeted posterior intervertebral foramen. Local anesthesia was established by infiltration with approximately 5 mL of 1% lidocaine via a 1-1/2 inch 27-gauge needle. Deeper structures were anesthetized by infiltration of an additional 5 ml of 1% lidocaine via a 3.0 inch 22-gauge quincke spinal needle. A 16-gauge 4-inch curved epidural needle was advanced intermittently until appropriate loss of resistance to air was identified via plastic loss of resistance syringe at the T12-L1 level. Lateral view was used to confirm the appropriate positioning of the needle tip within the posterior epidural space. In the AP view, after negative aspiration for CSF, blood or other bodily fluid, a single 8-contact Medtronic epidural trial lead was advanced right of midline until the distal electrode was even with the midportion of the T7 vertebral body in the AP view. A second needle was placed, and lead advanced, in a similar manner with final lead position left of midline with distal electrode at the superior endplate of T8. Each lead was programmed, stimulated and repositioned until appropriate parasthesias were obtained in both the bilateral distribution at the T9-10 interspace and in a distribution coinciding with the majority of the patient's typical pain topography at any point on either lead. No unanticipated parasthesias were elicited with needle or lead placement. Lead stylettes and then needles were carefully removed under live fluoroscopy, completely intact and without difficulty, to ensure lack of lead migration. Patient's skin, leads and contacts were cleaned with alcohol. Externalized portions of the leads were affixed to the skin utilizing a stress-relieving loop, a StayFix Catheter bandage, spray adhesive (benzoin) , large Tegaderm and Medipore tape. Lot numbers for all implanted materials were documented in the patient's chart. Images were saved and documented in the patient chart. The patient tolerated the procedure well. The patient was transported to the recovery area in stable condition where they were observed for an appropriate amount of time prior to discharge, without evidence of complication. The patient w
[2024-07-10 08:35] VITALS: BP 136/69; PULSE 82; RESP 16; TEMP 36.6; O2SAT 98; BMI 40.3
[2024-07-10] MEDS: LACTATED RINGERS 1,000 ML 30 ML IV CONT (09:25)
[2024-07-10 09:41] LABS: Glucose Point of Care 101 mg/dl (65-105)
--- NOTE | 2024-07-10 10:32 | WPDANESEPPF ---
Anes - Initial Pre Proc Eval Procedure: Operation Date: 07/10/24 10:30 Proposed Procedures p Percutaneous Placement of 2 x 8 Contact Medtronic Epidural Stimulations Leads under Fluoroscopic Guidance for Spinal Cord Stimulation Trial - Amor Steiner MD Date/Time: 07/10/24 10:32 Surgeon: Amor Steiner MD Pre Op Diagnosis: lumbosacral radiculopathy, chronic pain Patient Data Age: 69 Gender: F Height: 1.6 m Weight: 103.3 kg Last Vital Signs Temp 97.9 F 07/10/24 08:35 Pulse 82 07/10/24 08:35 Resp 16 07/10/24 08:35 BP 136/69 07/10/24 08:35 Pulse Ox 98 07/10/24 08:35 O2 Del Method Room Air 07/10/24 08:35 Allergies Allergy/AdvReac Type Severity Reaction Status Date / Time morphine AdvReac Severe Nausea and Verified 07/10/24 09:44 Vomiting Penicillins AdvReac Mild yeast Verified 07/10/24 09:44 infection metformin AdvReac Unknown Nausea and Verified 07/10/24 09:44 Vomiting Home Medications Medication Instructions Recorded Confirmed Type aspirin 81 mg tablet,delayed 81 mg PO DAILY 12/26/19 07/10/24 History release (Aspir-) loratadine 10 mg tablet (Claritin) 10 mg PO DAILY 02/29/20 07/04/24 History mecobalamin (vitamin B12) 1,000 2,000 mcg PO DAILY 02/29/20 07/10/24 History mcg chewable tablet hydrochlorothiazide 12.5 mg capsule 12.5 mg PO DAILY 10/14/22 07/04/24 History ibuprofen 200 mg tablet (Advil) 200 mg PO Q6H PRN Pain 10/14/22 07/04/24 History flash glucose scanning reader #1 ea 01/28/23 06/10/23 Rx (FreeStyle Lucille 2 [place]) flash glucose sensor (FreeStyle #2 ea 01/28/23 06/10/23 Rx Lucille 2 Sensor kit) semaglutide 2 mg/dose (8 mg/3 mL) 2 mg (0.75 mL) subcut WEEKLY #9 mL 06/03/23 07/04/24 Rx subcutaneous pen injector (Ozempic) cholecalciferol (vitamin D3) 25 25 mcg PO DAILY 10/26/23 07/10/24 History mcg (1,000 unit) capsule empagliflozin 25 mg tablet 25 mg PO DAILY 11/18/23 07/04/24 History (Jardiance) clopidogrel 75 mg tablet 75 mg PO DAILY #90 tabs 02/14/24 07/10/24 Rx tramadol 50 mg tablet 50 mg PO Q6-8H PRN pain #14 tabs 02/14/24 07/04/24 Rx metoprolol succinate 25 mg 37.5 mg PO DAILY #135 tabs 04/17/24 07/10/24 Rx tablet,extended release 24 hr omeprazole 20 mg capsule,delayed 20 mg PO DAILY #90 caps 05/08/24 07/04/24 Rx release lisinopril 10 mg tablet 10 mg PO BID #180 tabs 05/30/24 07/04/24 Rx gabapentin 300 mg capsule See Rx Instructions .Route .COMPLEX 07/04/24 07/10/24 History insulin lispro protamine-lispro 30 unit subcut BID 07/04/24 07/04/24 History 100 unit/mL (75-25) subcutaneous pen (Humalog Mix 75-25 KwikPen) atorvastatin 20 mg tablet 20 mg PO QHS #90 tabs 07/10/24 Rx Laboratory Tests 07/10/24 09:35 POC Capillary Glucose 101 mg/dl (65-105) Patient hx anesthesia problems: none Family hx anesthesia problems: none Results Review: All pre-operative results and documents have been reviewed as part of the pre-operative evaluation. [facility] Past Medical History Medical History CAD in [place] artery Cataract 2014 Chronic low back pain Chronic right shoulder pain Dizziness Essential (primary) hypertension Hearing loss in right ear History of kidney stones 2013 History of stroke Peripheral neuropathy Stroke may 2017 Tinnitus Type 2 diabetes mellitus with diabetic neuropathy Surgical History Surgical History History of carpal tunnel surgery of right wrist History of coronary artery stent placement 10/2017 x3 times History of lumbar laminectomy (~12/2021) Dr Encarnacion at [facility], [facility] Hx of decompressive lumbar laminectomy (~01/26/22) L5-S1 decompressive laminectomy with fusion - Dr Encarnacion at [facility] Social History Social History Social History: Patient lives with her boyfriend in [place]
[2024-07-10] MEDS: ceFAZolin 2 GM/D5W 50 ML 2 GM/50 ML BAG IVPB (11:15)
[2024-07-10] MEDS: BUPIVACAINE/EPINEPHRINE 0.5% 50 ML VIAL 10 ML INFILTRATE (11:32)
[2024-07-10] MEDS: LIDOCAINE HCL 1% PF INJ 5 ML VIAL 10 ML INFILTRATE (11:33)
[2024-07-10 12:14] VITALS: BP 149/69; PULSE 72; RESP 16; TEMP 36.4; O2SAT 100
[2024-07-10 12:27] LABS: Glucose Point of Care 118 mg/dl (65-105)
[2024-07-10 12:45] VITALS: BP 131/58; PULSE 70; RESP 16
[2024-07-10 13:15] VITALS: BP 165/51; PULSE 71; RESP 16
[2024-07-10 13:45] VITALS: BP 132/56; PULSE 72; RESP 16
== END 2024-07-10 14:03 | disposition home or self-care (01) ==
PROVIDERS: PCP Family Medicine; Visit Provider Anesthesiology Pain Medicine
PROC: (CPT 63650; principal; 2024-07-10 10:30)
DX: M96.1 Postlaminectomy syndrome, not elsewhere classified (principal); M47.817 Spondylosis without myelopathy or radiculopathy, lumbosacral region; M48.062 Spinal stenosis, lumbar region with neurogenic claudication; M54.16 Radiculopathy, lumbar region; G89.29 Other chronic pain; I10 Essential (primary) hypertension; E11.40 Type 2 diabetes mellitus with diabetic neuropathy, unspecified; I25.10 Atherosclerotic heart disease of native coronary artery without angina pectoris; I25.2 Old myocardial infarction; G62.9 Polyneuropathy, unspecified; E66.01 Morbid (severe) obesity due to excess calories; Z68.41 Body mass index [BMI] 40.0-44.9, adult; Z79.82 Long term (current) use of aspirin; Z79.1 Long term (current) use of non-steroidal anti-inflammatories (NSAID); Z79.85 Long-term (current) use of injectable non-insulin antidiabetic drugs; Z79.84 Long term (current) use of oral hypoglycemic drugs; Z79.02 Long term (current) use of antithrombotics/antiplatelets; Z79.891 Long term (current) use of opiate analgesic; Z79.4 Long term (current) use of insulin; Z98.890 Other specified postprocedural states; Z95.5 Presence of coronary angioplasty implant and graft; Z98.1 Arthrodesis status; Z87.442 Personal history of urinary calculi
CPT/HCPCS: 63650; 82948; 99199; C1778; J0690; J2250; J2371; J2704; J3010; J7120; Q9965

== ENCOUNTER 2024-07-21 11:35 | Outpatient (CLI) | payer MEDICARE, SELFPAY ==
[2024-07-21 14:43] LABS: Basophils Absolute Auto 0.1 K/mm3 (0.0-0.1); Eosinophils Absolute Auto 0.6 K/mm3 (0-0.3); Eosinophils Percent Auto 9.5 % (0-4.4); Hematocrit 42.8 % (37.0-47.0); Hemoglobin 13.5 g/dL (12.0-15.0); Immature Granulocyte Absolute 0.02 K/mm3 (0.00-0.031); Immature Granulocyte Percent A 0.3 % (0-0.5); Lymphocytes Absolute Auto 1.32 K/mm3 (0.9-3.2); Lymphocytes Percent Auto 21.6 % (18.3-44.2); Mean Corpuscular HGB Conc 31.5 g/dl (32-36); Mean Corpuscular Hemoglobin 30.5 pg (26-34); Mean Corpuscular Volume 96.6 fl (80-100); Mean Platelet Volume 9.4 fl (7.4-10.4); Monocytes Absolute Auto 0.5 K/mm3 (0.1-0.6); Monocytes Percent Auto 8.8 % (2.6-8.5); Neutrophils Absolute Auto 3.6 K/mm3 (1.3-6.7); Neutrophils Percent Auto 58.8 % (45.5-73.1); Platelet Count Result 269 k/mm3 (150-375); Red Blood Count 4.43 M/mm3 (4.2-5.4); Red Cell Distribution Width 14.7 % (11.5-14.5); White Blood Count 6.1 K/mm3 (4.5-10.0)
[2024-07-21 14:46] LABS: Alanine Aminotransferase 21 U/L (6-35); Alkaline Phosphatase 92 U/L (38-126); Anion Gap 7 mmol/L (4-12); Aspartate Amino Transferase 62 U/L (14-36); Bilirubin,Total 0.3 mg/dL (0.2-1.3); Blood Urea Nitrogen 44 mg/dL (7-17); Calcium 9.3 mg/dL (8.4-10.2); Carbon Dioxide 33 mmol/L (22-30); Chloride 97 mmol/L (98-107); Cholesterol 161 mg/dL (0-200); Estimated Glomerular Filt Rate 41; Glucose 75 mg/dL (65-110); HDL Direct 60 mg/dL; Potassium 4.3 mmol/L (3.4-5.0); Sodium 137 mmol/L (137-145); Triglycerides 109 mg/dL (<150)
[2024-07-21 14:57] LABS: LDL Cholesterol Direct 68 mg/dL
[2024-07-21 15:41] LABS: Hemoglobin A1C 6.9 % (<5.7)
[2024-07-21 15:55] LABS: Vitamin D 25 Hydroxy 39.5 ng/mL
== END 2024-07-21 11:36 | disposition home or self-care (01) ==
PROVIDERS: PCP Family Medicine; Visit Provider Nurse Practitioner Family
DX: E78.5 Hyperlipidemia, unspecified (principal); E11.9 Type 2 diabetes mellitus without complications; I10 Essential (primary) hypertension; E03.9 Hypothyroidism, unspecified; E55.9 Vitamin D deficiency, unspecified
CPT/HCPCS: 36415; 80053; 80061; 82306; 83036; 84443; 85025

== ENCOUNTER 2024-09-07 13:14 | Outpatient (CLI) | payer MEDICARE, SELFPAY | END 2024-09-07 13:15 | disposition home or self-care (01) | PROVIDERS: PCP Family Medicine; Visit Provider Family Medicine | DX: N39.0 Urinary tract infection, site not specified (principal) | CPT/HCPCS: 87086 ==

== ENCOUNTER 2024-09-14 10:28 | Outpatient (CLI) | payer MEDICARE, SELFPAY ==
[2024-09-14 11:24] LABS: Hematocrit 41.6 % (37.0-47.0); Hemoglobin 13.1 g/dL (12.0-15.0); Mean Corpuscular HGB Conc 31.5 g/dl (32-36); Mean Corpuscular Hemoglobin 30.7 pg (26-34); Mean Corpuscular Volume 97.4 fl (80-100); Platelet Count Result 266 k/mm3 (150-375); Red Blood Count 4.27 M/mm3 (4.2-5.4); Red Cell Distribution Width 15.1 % (11.5-14.5); White Blood Count 5.4 K/mm3 (4.5-10.0)
[2024-09-14 11:37] LABS: Anion Gap 6 mmol/L (4-12); Blood Urea Nitrogen 38 mg/dL (7-17); Calcium 9.3 mg/dL (8.4-10.2); Carbon Dioxide 32 mmol/L (22-30); Chloride 102 mmol/L (98-107); Estimated Glomerular Filt Rate 55; Glucose 171 mg/dL (65-110); Potassium 4.3 mmol/L (3.4-5.0); Sodium 140 mmol/L (137-145)
[2024-09-14 11:40] LABS: INR 0.9; Prothrombin Time 12.8 Seconds (11.1-14.7)
== END 2024-09-14 10:29 | disposition home or self-care (01) ==
PROVIDERS: PCP Family Medicine; Visit Provider Anesthesiology Pain Medicine
DX: Z01.818 Encounter for other preprocedural examination (principal)
CPT/HCPCS: 36415; 80048; 85027; 85610

== ENCOUNTER 2024-09-19 09:19 | Day surgery (SDC) | payer MEDICARE, SELFPAY ==
[2024-09-11 10:20] VITALS: BMI 37.3
[2024-09-19] VITALS (8 sets, daily range): BP systolic 98–154; BP diastolic 57–90; PULSE 76–85; RESP 15–18; TEMP 37.3; O2SAT 95–100
--- NOTE | ~2024-09-19 | XR_ITS ---
INTRAOPERATIVE FLUOROSCOPY: CLINICAL HISTORY: 69 years old Female; TEMP PLACEMENT EPIDURAL CATH FOR SINGLE BOLUS OPIOID TRAIL PROCEDURE COMMENTS: Limited intraoperative fluoroscopy of the upper lumbar spine was performed. CUMULATIVE DOSE: 12.7 mGy FLUOROSCOPY TIME: 23.2 seconds FINDINGS/IMPRESSION: Please refer to operative note for further details. Reviewed, dictated and finalized at location A. STANT PROFESSOR OF THEATER
--- NOTE | 2024-09-19 09:59 | PM.HPGS ---
History of Present Illness History of Present Illness Consent: Risks, benefits, and alternatives have been discussed and questions answered. Patient agrees to proceed with procedure. Chief complaint: Chronic Pain Syndrome Narrative: Petra Paula is a 69 year old female with chronic, recalcitrant and disabling bilateral lumbosacral, lower extremity and polyarthropathic pain secondary to degenerative spondylosis, spinal stenosis and osteoarthropathy with failure to respond to aggressive conservative measures including PT, oral and topical analgesics, opioid and nonopioid analgesics, rest, time and activity/behavioral modification over the past 1-2 years who presents for single bolus epidural opioid trial with hydromorphone (pump trial) under fluoroscopic guidance and with contrast control. Review of Systems Review of Systems: Patient denies any new infectious, allergic, cardiopulmonary, neurologic or constitutional symptoms or changes in activity tolerance or exercise capacity including new or progressive SOB/GLASS, peripheral edema, productive cough, dysuria, nausea/vomiting, diarrhea, weight change, fevers/chills/night sweats, new or progressive neurologic deficit, cognitive or mood changes since last seen, except as documented in the HPI. All systems reviewed & are unremarkable except as noted in HPI and below PMFSH Past Medical History Medical History CAD in [place] artery Cataract 2014 Chronic low back pain Chronic right shoulder pain Dizziness Essential (primary) hypertension Hearing loss in right ear History of kidney stones 2013 History of stroke Peripheral neuropathy Stroke may 2017 Tinnitus Type 2 diabetes mellitus with diabetic neuropathy Surgical History Surgical History History of carpal tunnel surgery of right wrist History of coronary artery stent placement 10/2017 x3 times History of lumbar laminectomy (~12/2021) Dr Encarnacion at [facility] Hx of decompressive lumbar laminectomy (~01/26/22) L5-S1 decompressive laminectomy with fusion - Dr Encarnacion at [facility] S/P insertion of spinal cord stimulator Social History Social History Social History: Patient lives with her boyfriend in [place]. 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 Caffeine-occasionally Smoking status: Never smoker Second hand tobacco smoke exposure: Yes Alcohol intake: current Alcohol use details: rarely Substance use: never Substance use type: does not use Do You Feel Safe in your Home?: Yes Lack of Transportation: No Lack of Food: Never True Current Housing: I Have Housing Concerned About Future Housing: No Difficulty Paying Gas/Electric Bills: No Difficulty Paying for Meds: No Currently Unemployed: No Education: High School Diploma/GED Difficulty w/ Childcare or Family Care: No Living arrangements: with family Additional living arrangements comments: ALONE BUT FIANCE IS THERE FREQUENTLY Occupation/Education: retired Gender identity (if verbalized by the patient): Female Sexual Orientation (if Verbalized by the Patient): Straight or Heterosexual Spiritual care concerns: No Agree to blood products: Yes Meds Home Medications and Allergies Home Medications Medication Instructions Recorded Confirmed Type aspirin 81 mg tablet,delayed 81 mg PO DAILY 12/26/19 09/11/24 History release (Aspir-) loratadine 10 mg tablet (Claritin) 10 mg PO DAILY 02/29/20 09/11/24 History mecobalamin (vitamin B12) 1,000 2,000 mcg PO DAILY 02/29/20 09/11/24 History mcg chewable tablet hydrochlorothiazide 12.5 mg capsule 12.5 mg PO DAILY 10/14/22 09/11/24 History ibuprofen 200 mg tablet (Advil) 200 mg PO Q6H PRN Pain 10/14/22 09/11/24 History flash glucose scanning reader #1 ea 01/28/23 07/21/24 Rx (FreeStyle Lucille 2 [place]) flash glucose sensor (FreeStyle #2 ea 01/28/23 07/21/24 Rx Lucille 2 Sensor kit) semaglutide 2 mg/dose (8 mg/3 mL) 2 mg (0.75 mL) subcut WEEKLY #9 mL 06/03/23 09/11/24 Rx subcutaneous pen injector (Ozempic) cholecalciferol (vitamin D3) 25 25 mcg PO DAILY 10/26/23 09/11/24 History mcg (1,000 unit) capsule empagliflozin 25 mg tablet 25 mg PO DAILY 11/18/23 09/11/24 History (Jardiance) tramadol 50 mg tablet 50 mg PO Q6-8H PRN pain #14 tabs 02/14/24 09/11/24 Rx omeprazole 20 mg capsule,delayed 20 mg PO DAILY #90 caps 05/08/24 09/11/24 Rx release lisinopril 10 mg tablet 10 mg PO BID #180 tabs 05/30/24 09/11/24 Rx atorvastatin 20 mg tablet 20 mg PO QHS #90 tabs 07/10/24 09/11/24 Rx insulin lispro protamine-lispro 32 unit (0.32 mL) subcut BID #90 mL 08/02/24 09/11/24 Rx 100 unit/mL (75-25) subcutaneous pen (Humalog Mix 75-25 KwikPen) clopidogrel 75 mg tablet 75 mg PO DAILY #90 tabs 08/04/24 09/11/24 Rx naloxone 4 mg/actuation nasal spray 4 mg intranasal Q2-3M PRN opioid 08/21/24 09/11/24 Rx overdose #2 ea gabapentin 300 mg capsule See Rx Instructions .Route 09/07/24 09/11/24 Rx .COMPLEX #270 caps metoprolol succinate 25 mg 37.5 mg PO DAILY #135 tabs 09/07/24 09/11/24 Rx tablet,extended release 24 hr Allergies Allergy/AdvReac Type Severity Reaction Status Date / Time morphine AdvReac Severe Nausea and Verified 09/11/24 10:16 Vomiting Penicillins AdvReac Mild yeast Verified 09/11/24 10:16 infection metformin AdvReac Unknown Nausea and Verified 09/11/24 10:16 Vomiting Exam Narrative: The patient's physical exam is essentially unchanged from prior examination on 08/15/24. Specifically, patient demonstrates normal lung capacity, tidal volume and respiratory rate without wheezes, crackles, rales or rubs. Heart rate and rhythm are regular without murmurs, gallops or rubs. No JVD. Pulses 2+ globally without increasing peripheral edema. AAOx3, NC/AT without acute distress or altered consciousness. Speech, cognition, mood and judgment at baseline and within normal limits. Const: General: cooperative, no acute distress, alert, awake and Physically active Limitations: no limitations Assessment and Plan Assessment and plan (1) Postlaminectomy syndrome: Code(s): M96.1 - Postlaminectomy syndrome, not elsewhere classified Status: Acute (2) Chronic low back pain: Code(s): M54.5 - Low back pain; G89.29 - Other chronic pain Status: Chronic (3) Spinal stenosis, lumbar region with neurogenic claudication: Code(s): M48.062 - Spinal stenosis, lumbar region with neurogenic claudication Status: Acute (4) Lumbosacral spondylosis: Code(s): M47.817 - Spondylosis without myelopathy or radiculopathy, lumbosacral region Status: Acute Plan Proceed as planned with epidural opioid pump trial w/ hydromorphone.
--- NOTE | 2024-09-19 10:04 | WPDHPUPDATE1 ---
History and Physical Update Update Date/Time: 09/19/24 10:04 History and Physical has been reviewed, including an updated exam of the patient. There are NO changes in the patient's condition. Risks, benefits, and alternatives have been discussed and questions answered. Patient agrees to proceed with procedure.
--- NOTE | 2024-09-19 10:09 | P.OP_ITS ---
Procedure Note - Detailed Date of Procedure 09/19/24 Pre-op Diagnosis Chronic Pain Syndrome Post-op Diagnosis Same Procedure Performed Midline Lumbar Interlaminar Epidural Needle Placement at T11-12 for Epidural Bolus of Opioid Analgesic (Pump Trial) under Fluoroscopic Guidance with Contrast Control. Surgeon Amor Steiner MD Anesthesia Local Description of Procedure INFORMED CONSENT: Risks, benefits and alternatives to the procedure were discussed in detail with the patient who expressed explicit understanding and consent to proceed. Patient was informed verbally and in written form regarding the risks associated with the procedure including the low risk of serious infection, bleeding/bruising, allergic reaction, nerve or organ injury, paralysis, procedural site pain or discomfort, worsening pain and/or mobility, failure to treat and/or disfigurement. The patient expressed explicit un derstanding and consent to proceed. All materials required for the procedure were available prior to procedure start. Site and side were marked prior to procedure and confirmed in the presence of the patient. PROCEDURE IN DETAIL: The patient was brought to the procedural suite and placed in the prone position. Patient was made comfortable with use of pillows under the head/chest, hips and ankles. Appropriate monitoring initiated. Skin overlying the injection site was prepared broadly with ChloraPrep applicator and draped in a sterile manner. Aseptic technique was employed throughout. The endplates of the vertebral body at the site of interest were aligned in the AP view. Slight caudal tilt and ipsilateral oblique angulation was utilized to optimize visualization of the targeted posterior intervertebral foramen (L1-2). Local anesthesia was established by infiltration with approximately 5 mL of 0.5% lidocaine via a 1-1/2 inch 27-gauge needle. An 20-gauge 4-inch Tuohy epidural needle was advanced intermittently until appropriate loss of resistance to air was identified via plastic loss of resistance syringe. Lateral view was used to confirm the appropriate positioning of the needle tip within the posterior epidural space. In the AP view, 2.0 mL of Omnipaque 300 contrast medium was injected after negative aspiration for CSF, blood or other bodily fluid, showing appropriate epidural spread of contrast without evidence of intravascular or intrathecal placement. 2 ml of a .25mg/ml aqueous solution of preservative free hydromorphone was injected after negative repeat aspiration. Appropriate spread of the injectate was confirmed with washout of previously injected contrast. No paresthesias were elicited. Needle was removed over the catheter without difficulty. Images were saved and documented in the patient chart. Patient's skin was cleaned and sterile bandage applied. The patient tolerated the procedure well. The patient was transported to the recovery area in stable condition where they were observed and monitored (RR, HR, BP, O2 Sats, Pain level) for an appropriate amount of time prior to discharge, without evidence of complication. After approximately one hour, the patient was evaluated for neurologic deficit, pain relief and side effects with results as below. No headache or new neurologic deficit or pain complaint noted. Patient instructed to remain in the presence of a responsible adult to monitor for the next 48 hours. The patient was instructed to avoid excessive activity for the next 48 hours, including climbing and frequent use of stairs. Showers only for 48 hours. They were instructed not to drive or operate heavy machinery for 24 hours. They are to monitor for pruritus, sedation/confusion, severe headaches, fevers, chills, night sweats, erythema/swelling at the site or any other signs of infection, bleeding/bruising, bowel or bladder changes as well as new pain, weakness or numbness in the upper or lower extremity. Should they notice these changes, they are instructed to call our office immediately or report directly to the nearest Emergency Department if no answer or if after posted office hours. COMPLICATIONS: None COMMENTS: Total dose:0.5 mg hydromorphone. No side effects of nausea, pruritus, somnolence, hallucinations noted. CONTRAST WASTED: 28mL Omnipaque 300. Complications No immediate complications Condition Stable Disposition PACU [facility] Billing Surgery - Charge Forward: Surgery Billing
[2024-09-19] MEDS: LIDOCAINE HCL 1% PF INJ 5 ML VIAL INFILTRATE (10:53)
--- NOTE | 2024-09-19 10:55 | SUR.OPER ---
10:49 Medication: PF Hydromorphone HCI 0.25mg/ml in 2ml of PF NS. Intrathecal injection. All given by Dr. Steiner.
--- NOTE | 2024-09-19 12:02 | SUR.PHASEII ---
PER DR PARKS PATIENT IS GOOD TO DISCHARGE
== END 2024-09-19 12:06 | disposition home or self-care (01) ==
PROVIDERS: PCP Family Medicine; Visit Provider Anesthesiology Pain Medicine
PROC: (CPT 62350; principal; 2024-09-19 10:45)
DX: G89.4 Chronic pain syndrome (principal)
CPT/HCPCS: 62350; 99199

== ENCOUNTER 2025-01-01 10:28 | Outpatient (CLI) | payer MEDICARE, SELFPAY ==
--- NOTE | 2025-01-01 10:38 | ECG_ITS ---
Test Date: 2025-01-01 10:42:48 Measurements Intervals [place] Rate: 80 P: 264 NJ: 119 QRS: -4 QRSD: 111 T: 69 QT: 385 QTc: 446 Interpretive Statements SINUS OR ECTOPIC ATRIAL RHYTHM DELAYED PRECORDIAL R/S TRANSITION LOW QRS VOLTAGE IN PRECORDIAL LEADS NONSPECIFIC ST-T WAVE ABNORMALITY- HIGH LATERAL LEADS BASELINE ARTIFACT- I, II, III, AVR, AVL, AVF, V1 BORDERLINE ECG No previous ECG available for comparison Electronically Signed On 01-01-2025 11:10:43 FRAME HAND by Benja Mario D.O.
[2025-01-01 11:26] LABS: Anion Gap 10 mmol/L (4-12); Blood Urea Nitrogen 38 mg/dL (7-17); Calcium 10.1 mg/dL (8.4-10.2); Carbon Dioxide 31 mmol/L (22-30); Chloride 101 mmol/L (98-107); Estimated Glomerular Filt Rate 53; Glucose 148 mg/dL (65-110); Potassium 4.9 mmol/L (3.4-5.0); Sodium 142 mmol/L (137-145)
--- OUTSIDE RECORDS SUMMARY | 2025-01-01 13:42 | XMS_ITS | Continuity of Care Document ---
Author Organization [facility] Address [address] [place] [address] Phone Care Team Providers Care Bag Machine Operator Name Role Phone Arun Raines MD Unavailable Unavailable Advance Directives Directive Yes / No Effective Date File Name No Information Encounters Encounter Description Practice Location Reason(s) For Visit Diagnoses Date Provider Providers Copied on Encounter [facility], [address], [place], [place], [id number], tel:[phone] [facility] No Information Yanna Dias. [address], [place], [id number], . tel:[phone] Referring Provider: Chacorta Gray, [address] [facility] [address], [place], [address]. tel:[phone] Family History Family Member Type Diagnosis Age At Onset No Information Payers Payer name Insurance type Covered alliance party ID Authoriza tion(s) BCBS INACTIVE OUT OF STATE [id number] Social History Type Description Quantity Date Captured [...]
--- OUTSIDE RECORDS SUMMARY | 2025-01-01 13:42 | XMS_ITS | Clinical Summary ---
Author Organization [facility] Address [address] [place] [address] Care Team Providers Care Aluminum Siding Applicator Name Role Phone Eyad Spears MD Primary Care Provider [phone] Social History Tobacco Use Types Packs/Day Years Used Date Smoking Tobacco: Never Assessed Comments Unknown Sex and Gender Information Value Date Recorded Sex Assigned at Not on file Legal Sex Female 7:40 AM CDT Gender Identity Not on file Sexual Orientation Not on file Plan of Treatment Health Maintenance Due Date Last Done Comments Colorectal Cancer Screening Colonoscopy (10 Years) 1956 Hepatitis C 1974 DTaP, Tdap and Td Vaccines ( 1 - Tdap) 1975 Mammogram Screening 1996 Zoster Vaccines (1 of 2) 2006 Dexa Scan (General) 2021 Pneumococcal Vaccine: 65+ Ye ars (1 of 1 - PCV) 2021 COVID-19 Vaccine ( - 2023-2 5 season) 2024 Influenza Adult (#1) 2024 RSV Immunization or 60+ Years (1 - 1-dose 75+ series) 2031 Meningococcal B Vaccine Aged Out No l onger eligible based on patient's age to complete this topic Meningococcal Vaccine Aged Out No katya gal eligible based on patient's age to complete this topic RSV Immunizations Under 20 Months Aged Out No longer eligible based on patient's age to complete this topic Insurance [facility] Advance Directives Documents on File Type Date Recorded 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
--- OUTSIDE RECORDS SUMMARY | 2025-01-01 13:42 | XMS_ITS | Clinical Summary ---
Author Organization [facility] Address [address] [place] [address] Care Team Providers Care Commercial Intelligence Manager Name Role Phone Edda Adames MD Primary Care Provider Allergies Active Allergy Reactions Criticality Noted Date Comments Metformin Nausea Only 05/31/2017 Morphine Other (See comments) Low 06/13/2013 Kidney/bladder infections Other reaction(s): vomiting/nausea vomiting/nausea Penicillins Other (See comments) Low 06/13/2013 yeast infection Medications aspirin 81 mg tablet Take 1 tablet (81 mg total) by mouth daily 06/01/20 17 Active clopidogreL (PLAVIX) 75 mg tablet Take by mouth daily. 06/01/20 17 Active nitroglycerin (NITROSTAT) 0.[address] 1 tablet (0.4 mg total) under the tongue every 5 (five) minutes as needed for chest pain. 25 tablet 1 10/16/20 17 Active lisinopril (PRINIVIL,ZESTRI L) 10 mg tablet Take 1 tablet (10 mg total) by mouth 2 (two) times a day. 04/29/20 18 Active Contour Next Test Strips strip USE 1 STRIP TO CHECK GLUCOSE TWICE DAILY TO THREE TIMES DAILY 04/04/20 21 Active HumaLOG 75/25 100 unit/mL 100 unit/mL pen for injection INJECT 35 UNITS SUBCUTANEOUSLY TWICE DAILY 05/26/20 21 Active atorvastatin (LIPITOR) 20 mg tablet Take 1 tablet (20 mg total) by mouth daily 01/04/20 22 Active omeprazole (PriLOSEC) 20 mg capsule Take 1 capsule (20 mg total) by mouth daily 10/21/20 21 Active metoprolol XL (TOPROL-XL) 25 mg extended release tablet Take 1 tablet (25 mg total) by mouth as directed 1 1/2 tab daily Active gabapentin (NEURONTIN) 300 mg capsule Take 1 capsule (300 mg total) by mouth 2 (two) times a day 11/26/19 23 Active HYDROcodone-acet aminophen (NORCO) 5-325 mg per tablet Take by mouth every 6 (six) hours as needed 12/02/19 23 Active semaglutide (Ozempic) 1 mg/dose (2 mg/1.5 mL) pen injector injection Inject 0.75 mL (1 mg total) under the skin once a week Active empagliflozin (JARDIANCE) 25 mg tablet Take 1 tablet (25 mg total) by mouth daily Active hydroCHLOROthiaz kelvin (MICROZIDE) 12.5 mg capsuleIndicatio ns:Essential hypertension TAKE 1 CAPSULE BY MOUTH IN THE MORNING 90 capsule 3 09/20/20 24 Active Active Problems Problem Noted Date Diagnosed Date Cerebrovascular accident (CVA) 06/19/2022 Assessment & Plan (07/23/2022 2:55 PM CDT): Stable Continue aspirin/Plavix, Lipitor Assessment & Plan (06/19/2022 11:40 AM CDT): Stable Continue amlodipine, aspirin, Lipitor, Plavix, lisinopril, metoprolol, insulin Type 2 diabetes mellitus without complications ( [facility]) 06/19/2022 Positive cardiac stress test 06/19/2022 Hyperlipidemia, unspecified 06/19/2022 Morbid obesity with BMI of 40.0-44.9, adult 05/16 Assessment & Plan (07/23/2022 2:55 PM CDT): Unstable Caloric restriction and exercise for weight reduction Assessment & Plan (06/19/2022 11:40 AM CDT): Unstable Caloric restriction exercise for weight reduction Assessment & Plan (01/13/2022 11:53 AM BOOKING AGENT): She would benefit from weight loss, but with her current level of inactivity this has not been possible for her. Hopefully after relief of her back pain she will be able to be more active. Assessment & Plan (06/09/2021 12:08 PM CDT): Weight is up 13 since her visit. She says that she does not eat very much. However, she is quite sedentary. She is hoping he some treatment of her back pain which will allow her to be more active. Pedal edema 04/29/2018 Assessment & Plan (04/29/2018 5:03 PM CDT): No evidence of congestive heart failure. I believe that her edema is a side effect of amlodipine. Will decrease amlodipine to 5 mg daily. Aortic ectasia, thoracic ([facility]) 10/04/2017 Coronary artery disease invo lving [place] coronary artery of [place] heart without angina pectoris 10/04/2017 Assessment & Plan (07/23/2022 2:54 PM CDT): Stable Continue aspirin/Plavix, Toprol-XL, sublingual nitro Assessment & Plan (06/22/2022 4:00 PM CDT): Stable Continue , aspirin, Lipitor, Plavix, insulin, lisinopril, metoprolol XL, sublingual nitro Assessment & Plan (01/13/2022 11:54 AM BOOKING AGENT): Coronary disease is asymptomatic. Her electrocardiogram shows no change from baseline. She will follow-up in six months with Dr. Tomlinson, whom she knows from her coronary interventions. She understands that he will be retiring in a year, and he will refer her to another armored car messenger in the practice at that time. Her risk of cardiac complications in the course of her upcoming laminectomy is higher than average but not prohibitive particularly in the context of her disabling severe back pain. Plavix should be discontinued seven days prior to her procedure. I would be most comfortable if aspirin could be continued, but reduced to 81 mg every other day for a week prior to surgery. Assessment & Plan (06/09/2021 12:06 PM CDT): Asymptomatic. Continue anti-platelet therapy. Assessment & Plan (10/24/2020 2:49 PM BOOKING AGENT): Asymptomatic. Continue dual anti-platelet therapy. Assessment & Plan (04/22/2020 11:21 AM CDT): No symptoms of myocardial ischemia. Continue dual anti-platelet therapy. If surgery is recommended, she should have a pharmacologic stress test beforehand. Assessment & Plan (10/20/2019 12:03 PM BOOKING AGENT): No symptoms of myocardial ischemia. She has a chronically occluded right coronary artery. Assessment & Plan (02/20/2019 7:37 PM CDT): No symptoms of myocardial ischemia. She is on dual anti-platelet therapy. If she should opt for back surgery, she would need a pharmacologic stress test beforehand. Assessment & Plan (04/29/2018 5:01 PM CDT): No symptoms of myocardial ischemia. Continue dual anti-platelet therapy. Assessment & Plan (01/16/2018 9:25 PM BOOKING AGENT): She is not having any symptoms of myocardial ischemia. Her right coronary artery is now occluded after intervention resulted in a spiral dissection which appeared to have been successfully repaired, but surprisingly subsequently occluded. She is status post circumflex intervention. The results of her catheterization and her current coronary anatomy were reviewed in detail. She is on dual anti-platelet therapy. She was advised to increase her activity level. Assessment & Plan (11/01/2017 8:06 AM BOOKING AGENT): No symptoms of myocardial ischemia. She is status post complicated intervention in the right coronary artery. She would like to proceed with re-evaluation of the right coronary artery and obtuse marginal intervention, ideally before the end of the year as she has already met her deductible. Essential hypertension 09/28/2017 Assessment & Plan (07/23/2022 2:54 PM CDT): Stable Continue hydrochlorothiazide, lisinopril, Toprol XL Assessment & Plan (06/22/2022 4:00 PM CDT): Stable Continue hydrochlorothiazide 12.5 mg daily, lisinopril, metoprolol XL Assessment & Plan (01/13/2022 11:51 AM BOOKING AGENT): Blood pressure is controlled on her current regimen including amlodipine 5 mg daily, lisinopril 10 mg twice a day, and metoprolol succinate 37.5 mg daily. Continue these. Assessment & Plan (06/09/2021 12:07 PM CDT): Blood pressure is adequately controlled on current regimen. No change was made. Assessment & Plan (10/24/2020 2:49 PM BOOKING AGENT): Not consistently ideally controlled. Will increase metoprolol to 37.5 mg daily. Assessment & Plan (04/22/2020 11:22 AM CDT): Blood pressure is adequately controlled on current regimen. No change was made. Assessment & Plan (10/20/2019 12:03 PM BOOKING AGENT): Blood pressure is adequately controlled on current regimen. No change was made. Assessment & Plan (02/20/2019 7:36 PM CDT): Blood pressure is adequately controlled on current regimen. No change was made. Assessment & Plan (04/29/2018 5:02 PM CDT): Blood pressure is controlled, but because of her edema will decrease amlodipine to 5 mg daily and add metoprolol XL 25 mg daily. If her edema does not improve significantly, we will then discontinue amlodipine altogether. Assessment & Plan (01/16/2018 9:23 PM BOOKING AGENT): Blood pressure is adequately controlled on current regimen. No change was made. Assessment & Plan (11/01/2017 8:07 AM BOOKING AGENT): Blood pressure is adequately controlled on current regimen. No change was made. Assessment & Plan (09/28/2017 2:37 PM BOOKING AGENT): Blood pressure is adequately controlled on current regimen. No change was made. Hyperlipidemia 09/28/2017 Assessment & Plan (07/23/2022 2:54 PM CDT): Stable Continue Lipitor Assessment & Plan (06/19/2022 11:39 AM CDT): Stable Continue Lipitor Assessment & Plan (01/13/2022 11:52 AM BOOKING AGENT): Continue atorvastatin 20 mg daily. Assessment & Plan (06/09/2021 12:07 PM CDT): On chronic lipid lowering therapy with good control. No changes made. Assessment & Plan (10/24/2020 2:50 PM BOOKING AGENT): On chronic lipid lowering therapy with good control. No changes made. Assessment & Plan (04/22/2020 11:23 AM CDT): Lipids checked recently thru PCP were normal. Continue high-intensity statin therapy. Assessment & Plan (10/20/2019 12:03 PM BOOKING AGENT): On chronic lipid lowering therapy with good control. No changes made. Assessment & Plan (02/20/2019 7:37 PM CDT): She is on high-intensity statin therapy. LDL is well controlled. Assessment & Plan (04/29/2018 5:03 PM CDT): On chronic lipid lowering therapy with good control. No changes made. Assessment & Plan (01/16/2018 9:25 PM BOOKING AGENT): On chronic lipid lowering therapy with good control. No changes made. Assessment & Plan (11/01/2017 8:07 AM BOOKING AGENT): On chronic lipid lowering therapy with good control. No changes made. Assessment & Plan (09/28/2017 2:38 PM BOOKING AGENT): On chronic lipid-lowering therapy. Cerebrovascular accident 06/01/2017 Type 2 diabetes mellitus without complication ([facility]/HCC) 06/01/2017 Assessment & Plan (06/19/2022 11:40 AM CDT): Stable Continue insulin, Lipitor Essential hypertension 06/01/2017 Hyperlipidemia 06/01/2017 Resolved Problems Problem Noted Date Diagnosed Date Resolved Date Abnormal nuclear stress test 09/28/2017 04/29/2018 Assessment & Plan (09/28/2017 2:37 PM BOOKING AGENT): Small, mild, reversible inferior defect which could represent myocardial ischemia despite the absence of symptoms. She does have significant risk factors for coronary artery disease. I recommended cardiac catheterization, procedure with which she is familiar. She agrees to proceed. She understands that, if appropriate, coronary intervention would take place at the same time. Encounters Date Type Department Care Team Description 12/29/2024 11:15 AM BOOKING AGENT Office Visit [facility] Cardiology [address] [place] [address], [place] [address] Arun De Los Santos MD Hyperlipidemia, unspecified hyperlipidemia type (Primary Dx) 12/01/[address] [facility] Cardiology [address] [place] [address] [address], [place] [address] Arun De Los Santos MD from Last 3 Months Surgical History Surgery Date Site/Laterality Comments HYSTERECTOMY 38 y/o EYE SURGERY CARDIAC CATHETERIZATION Medical History Medical History Date Comments Stroke (cerebrum) (HCC) May 15, 2017 Hypertension Kidney stones 2012 Diabetes mellitus (HCC) DJD (degenerative joint dise ase), lumbar Rotator cuff disorder Coronary artery disease RCA and LCX disease by cath Sep 2017 Family History Medical History Relation Name Comments Heart attack Father Stroke Mother Relation Name Status Comments Father Alive Mother Alive Social History Tobacco Use Types Packs/Day Years Used Date Smoking Tobacco: Never Smokeless Tobacco: Never Tobacco Cessation:Counseling Given: No Alcohol Use Standard Drinks/Week Comments No 0 (1 standard drink = 0.6 oz pur e alcohol) Comments Unknown Sex and Gender Information Value Date Recorded Sex Assigned at Not on file Legal Sex Female 8:52 AM CDT Gender Identity Not on file Sexual Orientation Not on file Obstetrics History Last Filed Vital Signs Vital Sign Reading Time Taken Comments Blood Pressure 120/70 12/29/2024 11:29 AM BOOKING AGENT Pulse 80 12/29/2024 11:29 AM BOOKING AGENT Temperature 36.7 C (98.1 F) 06/12/2013 4:03 PM CDT Respiratory Rate 18 10/04/2017 9:20 AM BOOKING AGENT Oxygen Saturation 96% 12/29/2024 11:29 AM BOOKING AGENT Inhaled Oxygen Concentration - - Weight 107 kg (236 lb) 12/29/2024 11:29 AM BOOKING AGENT Height 160 cm (5' 3 ) 12/29/2024 11:29 AM BOOKING AGENT Body Mass Index 41.81 12/29/2024 11:29 AM BOOKING AGENT Plan of Treatment Health Maintenance Due Date Last Done Comments Breast Cancer Screening-Mammogram 1956 Colon Cancer Screening-Colonoscopy 1956 Depression Screening 1956 Fall Risk Assessment 1956 Hemoglobin A1C 1956 Hepatitis C Screening 1956 Osteoporosis Screening-Bone Density Scan 1956 Dilated Eye Exam 1956 Foot Exam 1956 DTaP/Tdap/Td Vaccine (1 - Tdap) 1967 Hepatitis B Screening 1974 Zoster Vaccine (2 of 3) 11/09/2017 09/14/2017 eGFR 11/13/2018 11/13/2017, 10/16, 10/16/2017, Additional history exists Albumin Creatinine Ratio, Urine 03/01/2021 0 Well Visit 65+ 2021 Pneumococcal vaccine 65+ (2 of 2 - PCV) 01/29/2023 01/29/2022 Influenza Vaccine (#1) 2024 8, 09/14/2017, 10/26/2016 Lipid Panel 12/29/2025 12/29/2024, 03/16, 02/12/2021, Additional history exists Procedures Procedure Name Priority Date/Time Associated Diagnosis Comments POCT LIPID PANEL Routine 12/29/2024 11:3 0 AM BOOKING AGENT Hyperlipidemia, unspecified hyperlipidemia type ALBUMIN CREATININE RATIO, URINE Routine 03/01/2020 EGFR Routine 11/13/2017 12:59 AM BOOKING AGENT from Last 3 Months or Most Recently Relevant to Health Maintenance Results * POCT lipid panel (12/29/2024 11:30 AM BOOKING AGENT) Cholesterol, POC 126 mg/dL HDL, POC 68 mg/dL Triglycerides, POC 73 mg/dL LDL Cholesterol POC 43 mg/dL Chol/HDL Ratio, POC 0.6 Non-HDL Cholesterol, POC 58 mg/dL Cholesterol Total, POC 126 mg/dL Capillary blood 12/29/2024 1 1:30 AM BOOKING AGENT us Arun De Los Santos MD POINT OF CARE TEST ORDERA BLES Final Result * Albumin Creatinine Ratio, Urine (03/01/2020) Urine Edda Adames MD LAB URINE ORDERABLES F inal Result * eGFR (11/13/2017 12:59 AM BOOKING AGENT) eGFR 95 mL/min/1.7 3 m2 [facility] Comment: Interpretive Data Reference Interval Normal >/= 90 mL/min/1.73m2 Mildly decreased* 60 - 89 mL/min/1.73m2 Mildly to moderately decreased 45 - 59 mL/min/1.73m2 Moderately to severely decreased 30 - 44 mL/min/1.73m2 Severely decreased 15 - 29 mL/min/1.73m2 Kidney Failure < 15 mL/min/1.73m2 *Relative to young adult level If -[place] multiply value by 1.16. Estimated glomerular filtration rate is determined by the CKD-EPI equation recommended by the National Kidney Foundation (KDIGO 2012 Clinical Practice Guideline for the Evaluation and Management of Chronic Kidney Disease. Kidney Intnl Suppl Nov 2012;3:1). The CKD-EPI equation should not be used for patients with unstable renal function and has not been validated in children and those over 70. Current interpretive data was last reviewed 2017. Blood specimen (specimen) 11/13/2017 12:59 AM BOOKING AGENT 11/13/2017 1:44 AM BOOKING AGENT Narrative [facility] - 11/13/2017 2:10 AM BOOKING AGENT Hemal Tomlinson DO LAB BLOOD ORDERABLES Final Result [facility] [address] Department [place] [address] from Last 3 Months or Most Recently Relevant to Health Maintenance [place] [id number] [facility] MEDICARE AARP Care Teams Commercial Intelligence Manager Relationship Specialty Start Date End Date Edda Adames MD PCP - General 09/02/17
--- OUTSIDE RECORDS SUMMARY | 2025-01-01 13:42 | XMS_ITS | Continuity of Care Document ---
Author Organization [facility] Address [address] [place] [address] Phone Care Team Providers Care Sap Business Intelligence Consultant Name Role Phone Farooq Xie Unavailable Unavailable [...] Diagnoses Date Provider Providers Copied on Encounter [facility], located [facility], [address], [place], [place], [id number], [place] tel:[phone] [facility] No Information Oct-2 6-200 9 Anne-Marie Trivedi. [address] [place], [address], [place]. tel:[phone] Referring Provider: Farooq Montana, [address] [place], [address]. tel:[phone] [facility], [address], [place], [place], [id number], [place] tel:[phone] [facility] No Information Oct-1 2-200 9 Anne-Marie Trivedi. [address] [place], [address], [place]. tel:[phone] Referring Provider: Farooq Montana, [address] [place], [address]. tel:[phone] [facility], [address] [place] [address] [address], [place], [place], [id number], [place] tel:[phone] [facility] No Information Sep-1 4-200 9 Anne-Marie Trivedi. [address] [place], [address], [place]. tel:[phone] Referring Provider: Farooq Montana, [address] [place], [address]. tel:[phone] [facility], [address] [place] [address] [address], [place], [place], [id number], [place] tel:[phone] [facility] No Information Aug-3 1-200 9 Anne-Marie Trivedi. [address] [place], [address], [place]. tel:[phone] [facility], [address] [place] [address] [address], [place], [place], [id number], [place] tel:[phone] [facility] No Information Aug-2 4-200 9 Anne-Marie Trivedi. [address] [place], [address], [place]. tel:[phone] Referring Provider: Farooq Montana, [address] [place] [address], [address]. tel:[phone] Office Consultation [facility], [address] [place] [address] [address], [place], [place], [id number], tel:[phone] [facility] No Information 9 Anne-Marie Trivedi. [address] [place], [place], [facility], . tel:[phone] Referring Provider: Brandy Luna, [address], [place], [place], [facility]. tel:[phone] [facility], [address], [place], [place], [id number], tel:[phone] [facility] No Information 9 Beverly Nava. [address] [facility] , [address], [place], [address], . tel:[phone] Family History Family Member Type Diagnosis Age At Onset No Information Payers Payer name Insurance type Covered democrat ID Authoriza tion(s) No Information Social History [...]
--- OUTSIDE RECORDS SUMMARY | 2025-01-01 13:42 | XMS_ITS | Referral Summary ---
Author Organization [facility] D Address [address] [place] [id number] Care Team Providers Care Legislative Advocate Name Role Phone Edda Adames MD Primary Care Provider Encounters Date Type Department Care Team Description 12/29/2024 11:15 AM BED OPERATOR Office Visit [facility] Medical [facility] Cardiology [address] [place] [address] [address] [place] [address] Arun De Los Santos MD Hyperlipidemia, unspecified hyperlipidemia type (Primary Dx) 12/01/2024 Telephone [facility] Cardiology [address] [place] [phone] Arun De Los Santos MD from Last 3 Months Allergies Active Allergy Reactions Criticality Noted Date [...] Type 2 diabetes mellitus without complications ( CMS/HCC) 06/19/2022 Positive cardiac stress test 06/19/2022 Hyperlipidemia, unspecified 06/19/2022 Morbid obesity with BMI of 40.0-44.9, adult 05/16 Assessment & Plan (07/23/2022 2:55 PM CDT): Unstable Caloric restriction and exercise for weight reduction Assessment & Plan (06/19/2022 11:40 AM CDT): Unstable Caloric restriction exercise for weight reduction Assessment & Plan (01/13/2022 11:53 AM BED OPERATOR): She would benefit from weight loss, but [...] to 5 mg daily. Aortic ectasia, thoracic (CMS/HCC) 10/04/2017 Coronary artery disease invo lving [place] coronary artery of [place] heart without angina pectoris 10/04/2017 Assessment & Plan (07/23/2022 2:54 PM CDT): Stable Continue aspirin/Plavix, Toprol-XL, sublingual nitro Assessment & Plan (06/22/2022 4:00 PM CDT): Stable Continue , aspirin, Lipitor, Plavix, insulin, lisinopril, metoprolol XL, sublingual nitro Assessment & Plan (01/13/2022 11:54 AM BED OPERATOR): Coronary disease is asymptomatic. Her electrocardiogram shows no change from baseline. She will follow-up in six months with Dr. Tomlinson, whom she knows from her coronary interventions. She understands that he will be retiring in a year, and he will refer her to another fireboat operator in the practice at that time. Her [...] therapy. Assessment & Plan (10/24/2020 2:49 PM BED OPERATOR): Asymptomatic. Continue dual anti-platelet therapy. Assessment & Plan (04/22/2020 11:21 AM CDT): No symptoms of myocardial ischemia. Continue dual anti-platelet therapy. If surgery is recommended, she should have a pharmacologic stress test beforehand. Assessment & Plan (10/20/2019 12:03 PM BED OPERATOR): No symptoms of myocardial ischemia. She has [...] therapy. Assessment & Plan (01/16/2018 9:25 PM BED OPERATOR): She is not having any symptoms of [...] level. Assessment & Plan (11/01/2017 8:06 AM BED OPERATOR): No symptoms of myocardial ischemia. She is [...] XL Assessment & Plan (01/13/2022 11:51 AM BED OPERATOR): Blood pressure is controlled on her current regimen including amlodipine 5 mg daily, lisinopril 10 mg twice a day, and metoprolol succinate 37.5 mg daily. Continue these. Assessment & Plan (06/09/2021 12:07 PM CDT): Blood pressure is adequately controlled on current regimen. No change was made. Assessment & Plan (10/24/2020 2:49 PM BED OPERATOR): Not consistently ideally controlled. Will increase metoprolol to 37.5 mg daily. Assessment & Plan (04/22/2020 11:22 AM CDT): Blood pressure is adequately controlled on current regimen. No change was made. Assessment & Plan (10/20/2019 12:03 PM BED OPERATOR): Blood pressure is adequately controlled on current [...] altogether. Assessment & Plan (01/16/2018 9:23 PM BED OPERATOR): Blood pressure is adequately controlled on current regimen. No change was made. Assessment & Plan (11/01/2017 8:07 AM BED OPERATOR): Blood pressure is adequately controlled on current regimen. No change was made. Assessment & Plan (09/28/2017 2:37 PM BED OPERATOR): Blood pressure is adequately controlled on current regimen. No change was made. Hyperlipidemia 09/28/2017 Assessment & Plan (07/23/2022 2:54 PM CDT): Stable Continue Lipitor Assessment & Plan (06/19/2022 11:39 AM CDT): Stable Continue Lipitor Assessment & Plan (01/13/2022 11:52 AM BED OPERATOR): Continue atorvastatin 20 mg daily. Assessment & Plan (06/09/2021 12:07 PM CDT): On chronic lipid lowering therapy with good control. No changes made. Assessment & Plan (10/24/2020 2:50 PM BED OPERATOR): On chronic lipid lowering therapy with good control. No changes made. Assessment & Plan (04/22/2020 11:23 AM CDT): Lipids checked recently thru PCP were normal. Continue high-intensity statin therapy. Assessment & Plan (10/20/2019 12:03 PM BED OPERATOR): On chronic lipid lowering therapy with good control. No changes made. Assessment & Plan (02/20/2019 7:37 PM CDT): She is on high-intensity statin therapy. LDL is well controlled. Assessment & Plan (04/29/2018 5:03 PM CDT): On chronic lipid lowering therapy with good control. No changes made. Assessment & Plan (01/16/2018 9:25 PM BED OPERATOR): On chronic lipid lowering therapy with good control. No changes made. Assessment & Plan (11/01/2017 8:07 AM BED OPERATOR): On chronic lipid lowering therapy with good control. No changes made. Assessment & Plan (09/28/2017 2:38 PM BED OPERATOR): On chronic lipid-lowering therapy. Cerebrovascular accident 06/01/2017 Type 2 diabetes mellitus without complication (C MS/HCC) 06/01/2017 Assessment & Plan (06/19/2022 11:40 AM CDT): Stable Continue insulin, Lipitor Essential hypertension 06/01/2017 Hyperlipidemia 06/01/2017 Resolved Problems Problem Noted Date Diagnosed Date Resolved Date Abnormal nuclear stress test 09/28/2017 04/29/2018 Assessment & Plan (09/28/2017 2:37 PM BED OPERATOR): Small, mild, reversible inferior defect which could represent myocardial ischemia despite the absence of symptoms. She does have significant risk factors for coronary artery disease. I recommended cardiac catheterization, procedure with which she is familiar. She agrees to proceed. She understands that, if appropriate, coronary intervention would take place at the same time. Social History Tobacco Use Types Packs/Day Years [...] on file Sexual Orientation Not on file Last Filed Vital Signs Vital Sign Reading Time Taken Comments Blood Pressure 120/70 12/29/2024 11:29 AM BED OPERATOR Pulse 80 12/29/2024 11:29 AM BED OPERATOR Temperature 36.7 C (98.1 F) 06/12/2013 4:03 PM CDT Respiratory Rate 18 10/04/2017 9:20 AM BED OPERATOR Oxygen Saturation 96% 12/29/2024 11:29 AM BED OPERATOR Inhaled Oxygen Concentration - - Weight 107 kg (236 lb) 12/29/2024 11:29 AM BED OPERATOR Height 160 cm (5' 3 ) 12/29/2024 11:29 AM BED OPERATOR Body Mass Index 41.81 12/29/2024 11:29 AM BED OPERATOR Plan of Treatment Not on file Procedures Procedure Name Priority Date/Time Associated Diagnosis Comments POCT LIPID PANEL Routine 12/29/2024 11:3 0 AM BED OPERATOR Hyperlipidemia, unspecified hyperlipidemia type ALBUMIN CREATININE RATIO, URINE Routine 03/01/2020 EGFR Routine 11/13/2017 12:59 AM BED OPERATOR from Last 3 Months or Most Recently Relevant to Health Maintenance Results * POCT lipid panel (12/29/2024 11:30 AM BED OPERATOR) Cholesterol, POC 126 mg/dL HDL, POC 68 mg/dL Triglycerides, POC 73 mg/dL LDL Cholesterol POC 43 mg/dL Chol/HDL Ratio, POC 0.6 Non-HDL Cholesterol, POC 58 mg/dL Cholesterol Total, POC 126 mg/dL Capillary blood 12/29/2024 1 1:30 AM BED OPERATOR us Arun De Los Santos MD POINT OF CARE TEST ORDERA BLES Final Result * Albumin Creatinine Ratio, Urine (03/01/2020) Urine Edda Adames MD LAB URINE ORDERABLES F inal Result * eGFR (11/13/2017 12:59 AM BED OPERATOR) eGFR 95 mL/min/1.7 3 m2 [facility] Comment: Interpretive Data Reference Interval Normal >/= 90 mL/min/1.73m2 Mildly decreased* 60 - 89 mL/min/1.73m2 Mildly to moderately decreased 45 - 59 mL/min/1.73m2 Moderately to severely decreased 30 - 44 mL/min/1.73m2 Severely decreased 15 - 29 mL/min/1.73m2 Kidney Failure < 15 mL/min/1.73m2 *Relative to young adult level If -[place] multiply value by 1.16. Estimated glomerular filtration [...] 2017. Blood specimen (specimen) 11/13/2017 12:59 AM BED OPERATOR 11/13/2017 1:44 AM BED OPERATOR Narrative [facility] - 11/13/2017 2:10 AM BED OPERATOR Hemal Tomlinson DO LAB BLOOD ORDERABLES Final Result [facility] [address] Department [place] [address] from Last 3 Months or Most Recently Relevant to Health Maintenance Insurance MEDICARE [facility] MEDICARE [facility] Care Teams Legislative Advocate Relationship Specialty Start Date End Date Edda Adames MD PCP - General 09/02/17
== END 2025-01-01 10:29 | disposition home or self-care (01) ==
PROVIDERS: Anesthesiology; PCP Family Medicine; Visit Provider Anesthesiology Pain Medicine
DX: Z01.818 Encounter for other preprocedural examination (principal); E11.40 Type 2 diabetes mellitus with diabetic neuropathy, unspecified; Z79.01 Long term (current) use of anticoagulants; R94.31 Abnormal electrocardiogram [ECG] [EKG]
CPT/HCPCS: 36415; 80048; 93005

== ENCOUNTER 2025-01-09 00:26 | Day surgery (SDC) | payer MEDICARE, SELFPAY ==
[2024-12-26 13:38] VITALS: BMI 37.0
--- NOTE | 2024-12-26 13:49 | PC.NURSE ---
Report to the Outpatient Waiting Room, entrance under the green pavilion located off [facility], at time __0630am on date _01/09/25 . Planned Procedure Time: __0830am .? Time changes happen often and if your time is changed the preop area will call you the afternoon before. - You and your visitor will be asked to self-screen and do not enter if you have any COVID symptoms. Please call surgeon if you need to reschedule. - A mask is optional within the hospital at this time. Patients No food from midnight until time of surgery and no smoking, or chewing tobacco (or any form of nicotine). No chewing gum, candy or mints. Take only the following medications with a SIP of water on the morning of surgery: ____Metoprolol, Gabapentin, and Tramadol if needed DO NOT STOP ANY OF YOUR OTHER PRESCRIPTION MEDICATIONS PRIOR TO SURGERY EXCEPT THE FOLLOWING Hold all vitamins, herbs, and supplements for 3 days per anesthesiologist- date to take last dose prior 01/05/25 Medications to discontinue per physician _HOLD the Plavix and Aspirin per PCP for 7 days prior, pt to verify w medical pathology teacher at appt. Date to take last dose 01/01/25 Please no make-up, nail nigerian, hairspray, perfume, deodorant, or body powder the day of surgery.? No jewelry (including any body piercings) or valuables the day of surgery, leave them at home.? Please take a shower or bath the night before, or the morning of, surgery with an antibacterial soap.? Wear comfortable, loose fitting clothing.? - Jewelry must be removed prior to entering the operating room.? Rings and piercings that are not removed may be cut off. - The hospital will not accept responsibility for valuables.? - Please leave all valuables, including medications, at home the day of surgery. If you are going home after surgery, a licensed miniature train driver must drive you home.? - NO public transportation without another adult if you receive anesthesia. - We recommend that an adult stay with you for 24 hours following discharge. - We also recommend that you do not drive, make important decision, drink alcoholic beverages, or take any drugs that were not prescribed by your health care provider for at least 24 hours after your discharge time. Follow any additional instructions given to you from your surgeon. Telephone instructions given to ___Patient and asked if any additional questions and then verbalized understanding. Patient advised to call surgeon office or pre surgery nurse liaison [phone] if any additional questions.
--- NOTE | ~2025-01-09 | XR_ITS ---
INTRAOPERATIVE FLUOROSCOPY: CLINICAL HISTORY: 69 years old Female; PAIN PUMP INSERTION PROCEDURE COMMENTS: Limited intraoperative fluoroscopy of the lumbosacral spine was performed. CUMULATIVE DOSE: 554 mGy FLUOROSCOPY TIME: 532.6 seconds FINDINGS/IMPRESSION: Please refer to operative note for further details. Reviewed, dictated and finalized at location A. PLANT MANAGER
--- OUTSIDE RECORDS SUMMARY | 2025-01-09 00:30 | XMS_ITS | Continuity of Care Document ---
Author Organization [facility] Address [address] [place] [address] Phone Care Team Providers Care X Ray Control Equipment Repairer Name Role Phone Farooq Xie Unavailable Unavailable [...] Diagnoses Date Provider Providers [facility] on [facility], [address], [place], [place], [id number], [place] tel:[phone] [facility] No Information Oct-2 6-200 9 Anne-Marie Trivedi. [address] [place], [address], [place]. tel:[phone] Referring Provider: Farooq Montana, [address] [place], [address]. tel:[phone] [facility], [address], [place], [place], [id number], [place] tel:[phone] [facility] No Information Oct-1 2-200 9 Anne-Marie Trivedi. [address] [place], [address], [place]. tel:[phone] Referring Provider: Farooq Montana, [address] [place], [address]. tel:[phone] [facility], [address] [place] [address] [address], [place], [place], [id number], [place] tel:[phone] [facility] No Information Sep-1 4-200 9 Anne-Marie Trivedi. [address] [place], [address], [place]. tel:[phone] Referring Provider: Faoroq Montana, [address] [place], [address]. tel:[phone] [facility], [address] [place] [address] [address], [place], [place], [id number], [place] tel:[phone] [facility] No Information Aug-3 1-200 9 Anne-Marie Trivedi. [address] [place], [address], [place]. tel:[phone] [facility], [address] [place] [address] [address], [place], [place], [id number], [place] tel:[phone] [facility] No Information Aug-2 4-200 9 Anne-Marie Trivedi. [address] [place], [address], [place]. tel:[phone] Referring Provider: Farooq Montana, [address] [place] [address], [address]. tel:[phone] Office Consultation [facility], [address] [place] [address] [address], [place], [place], [id number], tel:[phone] [facility] No Information 9 Anne-Marie Trivedi. [address] [place], [place], [facility], . tel:[phone] Referring Provider: Brandy Luna, [address], [place], [place], [facility]. tel:[phone] [facility], [address], [place], [place], [id number], tel:[phone] [facility] No Information 9 Beverly Nava. [address] , [address], [place], [address], . tel:[phone] Family History Family Member Type Diagnosis Age At Onset No Information Payers Payer name Insurance type Covered alliance party ID Authoriza tion(s) No Information Social [...]
--- OUTSIDE RECORDS SUMMARY | 2025-01-09 00:30 | XMS_ITS | Referral Summary ---
Author Organization [facility] D Address [address] [place] [address] Care Team Providers Care Marketing Campaign Analyst Name Role Phone Edda Adames MD Primary Care Provider Amor Steiner MD Unavailable [phone] Encounters Date Type Department Care Team Description 12/29/2024 11:15 AM DIRECTOR GLOBAL INTELLIGENCE Office Visit [facility] Medical [facility] Cardiology [address] [place] [address] [address] [place] [address] Arun De Los Santos MD Hyperlipidemia, unspecified hyperlipidemia type (Primary Dx) 12/01/2024 Telephone [facility] Cardiology [address] [place] [phone] Arun De Los Santos MD from [...] Type 2 diabetes mellitus without complications ( CMS/[facility]) 06/19/2022 Positive cardiac stress test 06/19/2022 Hyperlipidemia, unspecified 06/19/2022 Morbid obesity with BMI of 40.0-44.9, adult 05/16 Assessment & Plan (07/23/2022 2:55 PM CDT): Unstable Caloric restriction and exercise for weight reduction Assessment & Plan (06/19/2022 11:40 AM CDT): Unstable Caloric restriction exercise for weight reduction Assessment & Plan (01/13/2022 11:53 AM DIRECTOR GLOBAL INTELLIGENCE): She would benefit from weight loss, but [...] to 5 mg daily. Aortic ectasia, thoracic ([facility]/HCC) 10/04/2017 Coronary artery disease invo lving [place] coronary artery of [place] heart without angina pectoris 10/04/2017 Assessment & Plan (07/23/2022 2:54 PM CDT): Stable Continue aspirin/Plavix, Toprol-XL, sublingual nitro Assessment & Plan (06/22/2022 4:00 PM CDT): Stable Continue , aspirin, Lipitor, Plavix, insulin, lisinopril, metoprolol XL, sublingual nitro Assessment & Plan (01/13/2022 11:54 AM DIRECTOR GLOBAL INTELLIGENCE): Coronary disease is asymptomatic. Her electrocardiogram shows no change from baseline. She will follow-up in six months with Dr. Bushra, whom she knows from her coronary interventions. She understands that he will be retiring in a year, and he will refer her to another puppet master in the practice at that time. Her [...] therapy. Assessment & Plan (10/24/2020 2:49 PM DIRECTOR GLOBAL INTELLIGENCE): Asymptomatic. Continue dual anti-platelet therapy. Assessment & Plan (04/22/2020 11:21 AM CDT): No symptoms of myocardial ischemia. Continue dual anti-platelet therapy. If surgery is recommended, she should have a pharmacologic stress test beforehand. Assessment & Plan (10/20/2019 12:03 PM DIRECTOR GLOBAL INTELLIGENCE): No symptoms of myocardial ischemia. She has [...] therapy. Assessment & Plan (01/16/2018 9:25 PM DIRECTOR GLOBAL INTELLIGENCE): She is not having any symptoms of [...] level. Assessment & Plan (11/01/2017 8:06 AM DIRECTOR GLOBAL INTELLIGENCE): No symptoms of myocardial ischemia. She is [...] XL Assessment & Plan (01/13/2022 11:51 AM DIRECTOR GLOBAL INTELLIGENCE): Blood pressure is controlled on her current regimen including amlodipine 5 mg daily, lisinopril 10 mg twice a day, and metoprolol succinate 37.5 mg daily. Continue these. Assessment & Plan (06/09/2021 12:07 PM CDT): Blood pressure is adequately controlled on current regimen. No change was made. Assessment & Plan (10/24/2020 2:49 PM DIRECTOR GLOBAL INTELLIGENCE): Not consistently ideally controlled. Will increase metoprolol to 37.5 mg daily. Assessment & Plan (04/22/2020 11:22 AM CDT): Blood pressure is adequately controlled on current regimen. No change was made. Assessment & Plan (10/20/2019 12:03 PM DIRECTOR GLOBAL INTELLIGENCE): Blood pressure is adequately controlled on current [...] altogether. Assessment & Plan (01/16/2018 9:23 PM DIRECTOR GLOBAL INTELLIGENCE): Blood pressure is adequately controlled on current regimen. No change was made. Assessment & Plan (11/01/2017 8:07 AM DIRECTOR GLOBAL INTELLIGENCE): Blood pressure is adequately controlled on current regimen. No change was made. Assessment & Plan (09/28/2017 2:37 PM DIRECTOR GLOBAL INTELLIGENCE): Blood pressure is adequately controlled on current regimen. No change was made. Hyperlipidemia 09/28/2017 Assessment & Plan (07/23/2022 2:54 PM CDT): Stable Continue Lipitor Assessment & Plan (06/19/2022 11:39 AM CDT): Stable Continue Lipitor Assessment & Plan (01/13/2022 11:52 AM DIRECTOR GLOBAL INTELLIGENCE): Continue atorvastatin 20 mg daily. Assessment & Plan (06/09/2021 12:07 PM CDT): On chronic lipid lowering therapy with good control. No changes made. Assessment & Plan (10/24/2020 2:50 PM DIRECTOR GLOBAL INTELLIGENCE): On chronic lipid lowering therapy with good control. No changes made. Assessment & Plan (04/22/2020 11:23 AM CDT): Lipids checked recently thru PCP were normal. Continue high-intensity statin therapy. Assessment & Plan (10/20/2019 12:03 PM DIRECTOR GLOBAL INTELLIGENCE): On chronic lipid lowering therapy with good control. No changes made. Assessment & Plan (02/20/2019 7:37 PM CDT): She is on high-intensity statin therapy. LDL is well controlled. Assessment & Plan (04/29/2018 5:03 PM CDT): On chronic lipid lowering therapy with good control. No changes made. Assessment & Plan (01/16/2018 9:25 PM DIRECTOR GLOBAL INTELLIGENCE): On chronic lipid lowering therapy with good control. No changes made. Assessment & Plan (11/01/2017 8:07 AM DIRECTOR GLOBAL INTELLIGENCE): On chronic lipid lowering therapy with good control. No changes made. Assessment & Plan (09/28/2017 2:38 PM DIRECTOR GLOBAL INTELLIGENCE): On chronic lipid-lowering therapy. Cerebrovascular accident 06/01/2017 Type 2 diabetes mellitus without complication (C MS/HCC) 06/01/2017 Assessment & Plan (06/19/2022 11:40 AM CDT): Stable Continue insulin, Lipitor Essential hypertension 06/01/2017 Hyperlipidemia 06/01/2017 Resolved Problems Problem Noted Date Diagnosed Date Resolved Date Abnormal nuclear stress test 09/28/2017 04/29/2018 Assessment & Plan (09/28/2017 2:37 PM DIRECTOR GLOBAL INTELLIGENCE): Small, mild, reversible inferior defect which could [...] Comments Blood Pressure 120/70 12/29/2024 11:29 AM DIRECTOR GLOBAL INTELLIGENCE Pulse 80 12/29/2024 11:29 AM DIRECTOR GLOBAL INTELLIGENCE Temperature 36.7 C (98.1 F) 06/12/2013 4:03 PM CDT Respiratory Rate 18 10/04/2017 9:20 AM DIRECTOR GLOBAL INTELLIGENCE Oxygen Saturation 96% 12/29/2024 11:29 AM DIRECTOR GLOBAL INTELLIGENCE Inhaled Oxygen Concentration - - Weight 107 kg (236 lb) 12/29/2024 11:29 AM DIRECTOR GLOBAL INTELLIGENCE Height 160 cm (5' 3 ) 12/29/2024 11:29 AM DIRECTOR GLOBAL INTELLIGENCE Body Mass Index 41.81 12/29/2024 11:29 AM DIRECTOR GLOBAL INTELLIGENCE Plan of Treatment Not on file Procedures Procedure Name Priority Date/Time Associated Diagnosis Comments POCT LIPID PANEL Routine 12/29/2024 11:3 0 AM DIRECTOR GLOBAL INTELLIGENCE Hyperlipidemia, unspecified hyperlipidemia type ALBUMIN CREATININE RATIO, URINE Routine 03/01/2020 EGFR Routine 11/13/2017 12:59 AM DIRECTOR GLOBAL INTELLIGENCE from Last 3 Months or Most Recently Relevant to Health Maintenance Results * POCT lipid panel (12/29/2024 11:30 AM DIRECTOR GLOBAL INTELLIGENCE) Cholesterol, POC 126 mg/dL HDL, POC 68 mg/dL Triglycerides, POC 73 mg/dL LDL Cholesterol POC 43 mg/dL Chol/HDL Ratio, POC 0.6 Non-HDL Cholesterol, POC 58 mg/dL Cholesterol Total, POC 126 mg/dL Capillary blood 12/29/2024 1 1:30 AM DIRECTOR GLOBAL INTELLIGENCE us Arun De Los Santos MD POINT OF CARE TEST ORDERA BLES Final Result * Albumin Creatinine Ratio, Urine (03/01/2020) Urine us Edda Adames MD LAB URINE ORDERABLES F inal Result * eGFR (11/13/2017 12:59 AM DIRECTOR GLOBAL INTELLIGENCE) eGFR 95 mL/min/1.7 3 m2 [facility] Comment: Interpretive Data Reference Interval Normal >/= 90 mL/min/1.73m2 Mildly decreased* 60 - 89 mL/min/1.73m2 Mildly to moderately decreased 45 - 59 mL/min/1.73m2 Moderately to severely decreased 30 - 44 mL/min/1.73m2 Severely decreased 15 - 29 mL/min/1.73m2 Kidney Failure < 15 mL/min/1.73m2 *Relative to young adult level If -[place] multiply value by 1.16. Estimated glomerular filtration [...] 2017. Blood specimen (specimen) 11/13/2017 12:59 AM DIRECTOR GLOBAL INTELLIGENCE 11/13/2017 1:44 AM DIRECTOR GLOBAL INTELLIGENCE Narrative [facility] - 11/13/2017 2:10 AM DIRECTOR GLOBAL INTELLIGENCE Hemal Tomlinson DO LAB BLOOD ORDERABLES Final Result [facility] [address] Department [place] [address] from Last 3 Months or Most Recently Relevant to Health Maintenance Insurance MEDICARE [facility] MEDICARE [facility] Care Teams Marketing Campaign Analyst Relationship Specialty Start Date End Date Edda Adames MD PCP - General 09/02/17 Amor Steiner MD [address] [place] [address] [place] [address] Referring Physician Pain Management 01/04/25
--- OUTSIDE RECORDS SUMMARY | 2025-01-09 00:30 | XMS_ITS | Clinical Summary ---
Author Organization [facility] Address [address] [place] [address] Care Team Providers Care Placing Judge Name Role Phone Eyad Spears MD Primary Care Provider [phone] Social History Tobacco Use Types Packs/Day Years [...] patient's age to complete this topic Insurance [facility] Advance Directives Documents on File Type Date Recorded Patient City Carrier Assistant Expl anation Advance Directives and Livin g Will 05/21/2017 POWER OF WAREHOUSE SPECIALIST Care Teams Placing Judge Relationship Specialty Start Date End Date Eyad Spears MD [address] [place], [place] [id number] PCP - General 05/21/17
--- OUTSIDE RECORDS SUMMARY | 2025-01-09 00:30 | XMS_ITS | Continuity of Care Document ---
Author Organization [facility] Address [address] [place] [address] Phone Care Team Providers Care Registered Land Surveyor Name Role Phone Arun Raines MD Unavailable Unavailable Advance Directives Directive Yes / No Effective Date File Name No Information Encounters Encounter Description Practice Location Reason(s) For Visit Diagnoses Date Provider Providers Copied on Encounter [employer], [address], [place], [place], [id number], tel:[phone] [facility] No Information Yanna Dias. [address], [place], [id number], . tel:[phone] Referring Provider: Chacorta [place], [address] [facility] [address], [place], [address]. tel:[phone] Family History Family Member Type Diagnosis Age At Onset No Information Payers Payer name Insurance type Covered constitution party ID Authoriza tion(s) BCBS INACTIVE OUT OF STATE [id number] Social History Type Description Quantity Date Captured [...]
--- OUTSIDE RECORDS SUMMARY | 2025-01-09 00:30 | XMS_ITS | Clinical Summary ---
Author Organization [facility] D Address [address] [place] [id number] Care Team Providers Care Workers Compensation Claims Analyst Name Role Phone Edda Adames MD Primary Care Provider Amor Steiner MD Unavailable [phone] Allergies Active Allergy Reactions Criticality Noted Date [...] mg total) by mouth as directed 1 11/16 tab daily Active gabapentin (NEURONTIN) 300 mg [...] Type 2 diabetes mellitus without complications ( [facility]) 06/19/2022 Positive cardiac stress test 06/19/2022 Hyperlipidemia, unspecified 06/19/2022 Morbid obesity with BMI of 40.0-44.9, adult 05/16 Assessment & Plan (07/23/2022 2:55 PM CDT): Unstable Caloric restriction and exercise for weight reduction Assessment & Plan (06/19/2022 11:40 AM CDT): Unstable Caloric restriction exercise for weight reduction Assessment & Plan (01/13/2022 11:53 AM ADULT HEALTH CLINICAL NURSE SPECIALIST): She would benefit from weight loss, but [...] (CMS/HCC) 10/04/2017 Coronary artery disease invo [place]ving [place] coronary artery of [place] heart without angina pectoris 10/04/2017 Assessment & Plan (07/23/2022 2:54 PM CDT): Stable Continue aspirin/Plavix, Toprol-XL, sublingual nitro Assessment & Plan (06/22/2022 4:00 PM CDT): Stable Continue , aspirin, Lipitor, Plavix, insulin, lisinopril, metoprolol XL, sublingual nitro Assessment & Plan (01/13/2022 11:54 AM ADULT HEALTH CLINICAL NURSE SPECIALIST): Coronary disease is asymptomatic. Her electrocardiogram shows no change from baseline. She will follow-up in six months with Dr. Tomlinson, whom she knows from her coronary interventions. She understands that he will be retiring in a year, and he will refer her to another prn occupational therapist in the practice at that time. Her [...] therapy. Assessment & Plan (10/24/2020 2:49 PM ADULT HEALTH CLINICAL NURSE SPECIALIST): Asymptomatic. Continue dual anti-platelet therapy. Assessment & Plan (04/22/2020 11:21 AM CDT): No symptoms of myocardial ischemia. Continue dual anti-platelet therapy. If surgery is recommended, she should have a pharmacologic stress test beforehand. Assessment & Plan (10/20/2019 12:03 PM ADULT HEALTH CLINICAL NURSE SPECIALIST): No symptoms of myocardial ischemia. She has [...] therapy. Assessment & Plan (01/16/2018 9:25 PM ADULT HEALTH CLINICAL NURSE SPECIALIST): She is not having any symptoms of [...] level. Assessment & Plan (11/01/2017 8:06 AM ADULT HEALTH CLINICAL NURSE SPECIALIST): No symptoms of myocardial ischemia. She is [...] XL Assessment & Plan (01/13/2022 11:51 AM ADULT HEALTH CLINICAL NURSE SPECIALIST): Blood pressure is controlled on her current regimen including amlodipine 5 mg daily, lisinopril 10 mg twice a day, and metoprolol succinate 37.5 mg daily. Continue these. Assessment & Plan (06/09/2021 12:07 PM CDT): Blood pressure is adequately controlled on current regimen. No change was made. Assessment & Plan (10/24/2020 2:49 PM ADULT HEALTH CLINICAL NURSE SPECIALIST): Not consistently ideally controlled. Will increase metoprolol to 37.5 mg daily. Assessment & Plan (04/22/2020 11:22 AM CDT): Blood pressure is adequately controlled on current regimen. No change was made. Assessment & Plan (10/20/2019 12:03 PM ADULT HEALTH CLINICAL NURSE SPECIALIST): Blood pressure is adequately controlled on current [...] altogether. Assessment & Plan (01/16/2018 9:23 PM ADULT HEALTH CLINICAL NURSE SPECIALIST): Blood pressure is adequately controlled on current regimen. No change was made. Assessment & Plan (11/01/2017 8:07 AM ADULT HEALTH CLINICAL NURSE SPECIALIST): Blood pressure is adequately controlled on current regimen. No change was made. Assessment & Plan (09/28/2017 2:37 PM ADULT HEALTH CLINICAL NURSE SPECIALIST): Blood pressure is adequately controlled on current regimen. No change was made. Hyperlipidemia 09/28/2017 Assessment & Plan (07/23/2022 2:54 PM CDT): Stable Continue Lipitor Assessment & Plan (06/19/2022 11:39 AM CDT): Stable Continue Lipitor Assessment & Plan (01/13/2022 11:52 AM ADULT HEALTH CLINICAL NURSE SPECIALIST): Continue atorvastatin 20 mg daily. Assessment & Plan (06/09/2021 12:07 PM CDT): On chronic lipid lowering therapy with good control. No changes made. Assessment & Plan (10/24/2020 2:50 PM ADULT HEALTH CLINICAL NURSE SPECIALIST): On chronic lipid lowering therapy with good control. No changes made. Assessment & Plan (04/22/2020 11:23 AM CDT): Lipids checked recently thru PCP were normal. Continue high-intensity statin therapy. Assessment & Plan (10/20/2019 12:03 PM ADULT HEALTH CLINICAL NURSE SPECIALIST): On chronic lipid lowering therapy with good control. No changes made. Assessment & Plan (02/20/2019 7:37 PM CDT): She is on high-intensity statin therapy. LDL is well controlled. Assessment & Plan (04/29/2018 5:03 PM CDT): On chronic lipid lowering therapy with good control. No changes made. Assessment & Plan (01/16/2018 9:25 PM ADULT HEALTH CLINICAL NURSE SPECIALIST): On chronic lipid lowering therapy with good control. No changes made. Assessment & Plan (11/01/2017 8:07 AM ADULT HEALTH CLINICAL NURSE SPECIALIST): On chronic lipid lowering therapy with good control. No changes made. Assessment & Plan (09/28/2017 2:38 PM ADULT HEALTH CLINICAL NURSE SPECIALIST): On chronic lipid-lowering therapy. Cerebrovascular accident 06/01/2017 Type 2 diabetes mellitus without complication (C MS/HCC) 06/01/2017 Assessment & Plan (06/19/2022 11:40 AM CDT): Stable Continue insulin, Lipitor Essential hypertension 06/01/2017 Hyperlipidemia 06/01/2017 Resolved Problems Problem Noted Date Diagnosed Date Resolved Date Abnormal nuclear stress test 09/28/2017 04/29/2018 Assessment & Plan (09/28/2017 2:37 PM ADULT HEALTH CLINICAL NURSE SPECIALIST): Small, mild, reversible inferior defect which could represent myocardial ischemia despite the absence of symptoms. She does have significant risk factors for coronary artery disease. I recommended cardiac catheterization, procedure with which she is familiar. She agrees to proceed. She understands that, if appropriate, coronary intervention would take place at the same time. Encounters Date Type Department Care Team Description 12/29/2024 11:15 AM ADULT HEALTH CLINICAL NURSE SPECIALIST Office Visit [facility] Medical [facility] Cardiology [address] [place] [address] [address] [address] Arun De Los Santos MD Hyperlipidemia, unspecified hyperlipidemia type (Primary Dx) 12/01/2024 Telephone [facility] Cardiology [address] [place] [address] [address] [address] Arun De Los Santos MD from Last [...] Comments Blood Pressure 120/70 12/29/2024 11:29 AM ADULT HEALTH CLINICAL NURSE SPECIALIST Pulse 80 12/29/2024 11:29 AM ADULT HEALTH CLINICAL NURSE SPECIALIST Temperature 36.7 C (98.1 F) 06/12/2013 4:03 PM CDT Respiratory Rate 18 10/04/2017 9:20 AM ADULT HEALTH CLINICAL NURSE SPECIALIST Oxygen Saturation 96% 12/29/2024 11:29 AM ADULT HEALTH CLINICAL NURSE SPECIALIST Inhaled Oxygen Concentration - - Weight 107 kg (236 lb) 12/29/2024 11:29 AM ADULT HEALTH CLINICAL NURSE SPECIALIST Height 160 cm (5' 3 ) 12/29/2024 11:29 AM ADULT HEALTH CLINICAL NURSE SPECIALIST Body Mass Index 41.81 12/29/2024 11:29 AM ADULT HEALTH CLINICAL NURSE SPECIALIST Plan of Treatment Health Maintenance Due Date [...] LIPID PANEL Routine 12/29/2024 11:3 0 AM ADULT HEALTH CLINICAL NURSE SPECIALIST Hyperlipidemia, unspecified hyperlipidemia type ALBUMIN CREATININE RATIO, URINE Routine 03/01/2020 EGFR Routine 11/13/2017 12:59 AM ADULT HEALTH CLINICAL NURSE SPECIALIST from Last 3 Months or Most Recently Relevant to Health Maintenance Results * POCT lipid panel (12/29/2024 11:30 AM ADULT HEALTH CLINICAL NURSE SPECIALIST) Cholesterol, POC 126 mg/dL HDL, POC 68 mg/dL Triglycerides, POC 73 mg/dL LDL Cholesterol POC 43 mg/dL Chol/HDL Ratio, POC 0.6 Non-HDL Cholesterol, POC 58 mg/dL Cholesterol Total, POC 126 mg/dL Capillary blood 12/29/2024 1 1:30 AM ADULT HEALTH CLINICAL NURSE SPECIALIST Arun De Los Santos MD POINT OF CARE TEST ORDERA BLES Final Result * Albumin Creatinine Ratio, Urine (03/01/2020) Urine Edda Adames MD LAB URINE ORDERABLES F inal Result * eGFR (11/13/2017 12:59 AM ADULT HEALTH CLINICAL NURSE SPECIALIST) eGFR 95 mL/min/1.7 3 m2 [facility] Comment: Interpretive Data Reference Interval Normal >/= 90 mL/min/1.73m2 Mildly decreased* 60 - 89 mL/min/1.73m2 Mildly to moderately decreased 45 - 59 mL/min/1.73m2 Moderately to severely decreased 30 - 44 mL/min/1.73m2 Severely decreased 15 - 29 mL/min/1.73m2 Kidney Failure < 15 mL/min/1.73m2 *Relative to young adult level If -[place] multiply value by 1.16. Estimated glomerular filtration [...] 2017. Blood specimen (specimen) 11/13/2017 12:59 AM ADULT HEALTH CLINICAL NURSE SPECIALIST 11/13/2017 1:44 AM ADULT HEALTH CLINICAL NURSE SPECIALIST Narrative [facility] - 11/13/2017 2:10 AM ADULT HEALTH CLINICAL NURSE SPECIALIST Hemal Tomlinson DO LAB BLOOD ORDERABLES Final Result [facility] [address] Department [place] [address] from Last 3 Months or Most Recently Relevant to Health Maintenance Insurance MEDICARE [facility] MEDICARE [employer] Care Teams Workers Compensation Claims Analyst Relationship Specialty Start Date End Date Edda Adames MD PCP - General 09/02/17 Amor Steiner MD [address] [place] [address] [place] [address] Referring Physician Pain Management 01/04/25
[2025-01-09 07:10] LABS: Glucose Point of Care 114 mg/dl (65-105)
[2025-01-09] MEDS: LACTATED RINGERS 1,000 ML 30 ML IV CONT (07:10)
--- NOTE | 2025-01-09 07:28 | P.PNAN_ITS ---
Anes - Initial Pre Proc Eval Procedure: Operation Date: 01/09/25 08:30 Proposed Procedures p Permanent Placement Medtronic Ascenda Intrathecal Infusion Catheter and 20ml Medtronic Synchromed Implantable Intrathecal Pain Pump - Amor Steiner MD Date/Time: 01/09/25 07:28 Surgeon: mAor Steiner MD Pre Op Diagnosis: chronic pain syndrome Patient Data Age: 69 Gender: F Height: 1.6 m Weight: 95 kg Allergies Allergy/AdvReac Type Severity Reaction Status Date / Time morphine AdvReac Severe Nausea and Verified 12/28/24 11:18 Vomiting Penicillins AdvReac Mild yeast Verified 12/28/24 11:18 infection metformin AdvReac Unknown Nausea and Verified 12/28/24 11:18 Vomiting Home Medications ?Medication ?Instructions ?Recorded ?Confirmed ?Type aspirin 81 mg tablet,delayed 81 mg PO DAILY 12/26/19 12/28/24 History release (Aspir-) loratadine 10 mg tablet (Claritin) 10 mg PO DAILY 02/29/20 12/28/24 History mecobalamin (vitamin B12) 1,000 2,000 mcg PO DAILY 02/29/20 12/28/24 History mcg chewable tablet hydrochlorothiazide 12.5 mg capsule 12.5 mg PO DAILY 10/14/22 12/28/24 History flash glucose scanning reader #1 ea 01/28/23 12/28/24 Rx (FreeStyle Lucille 2 [place]) flash glucose sensor (FreeStyle #2 ea 01/28/23 12/28/24 Rx Lucille 2 Sensor kit) semaglutide 2 mg/dose (8 mg/3 mL) 2 mg (0.75 mL) subcut WEEKLY #9 mL 06/03/23 12/28/24 Rx subcutaneous pen injector (Ozempic) cholecalciferol (vitamin D3) 25 25 mcg PO DAILY 10/26/23 12/28/24 History mcg (1,000 unit) capsule empagliflozin 25 mg tablet 25 mg PO DAILY 11/18/23 12/28/24 History (Jardiance) tramadol 50 mg tablet 50 mg PO Q6-8H PRN pain #14 tabs 02/14/24 12/28/24 Rx insulin lispro protamine-lispro 32 unit (0.32 mL) subcut BID #90 mL 09/18/24 02/13/25 Rx 100 unit/mL (75-25) subcutaneous pen (Humalog Mix 75-25 KwikPen) clopidogrel 75 mg tablet 75 mg PO DAILY #90 tabs 08/04/24 12/28/24 Rx naloxone 4 mg/actuation nasal spray 4 mg intranasal Q2-3M PRN opioid 08/21/24 12/28/24 Rx overdose #2 ea gabapentin 300 mg capsule See Rx Instructions .Route 09/07/24 12/28/24 Rx .COMPLEX #270 caps metoprolol succinate 25 mg 37.5 mg (1.5 x 25 mg) PO DAILY 09/07/24 12/28/24 Rx tablet,extended release 24 hr #135 tabs omeprazole 20 mg capsule,delayed 20 mg PO DAILY #90 caps 09/26/24 12/28/24 Rx release lisinopril 10 mg tablet 10 mg PO BID #180 tabs 10/25/24 12/28/24 Rx atorvastatin 20 mg tablet 20 mg PO QHS #90 tabs 12/06/24 12/28/24 Rx glucose 4 gram chewable tablet 16 g (4 x 4 gram) PO Q15M PRN 12/28/24 12/28/24 Rx hypoglycemia #360 tabs Laboratory Tests 01/09/25 07:07 POC Capillary Glucose 114 H mg/dl (65-105) Patient hx anesthesia problems: none Family hx anesthesia problems: none Results Review: All pre-operative results and documents have been reviewed as part of the pre- operative evaluation. [facility] Past Medical History Medical History Tinnitus Dizziness Hearing loss in right ear Chronic right shoulder pain Peripheral neuropathy Type 2 diabetes mellitus with diabetic neuropathy Stroke may 2017 Cataract 2014 History of kidney stones 2013 CAD in [place] artery Chronic low back pain Essential (primary) hypertension History of stroke Surgical History Surgical History S/P insertion of spinal cord stimulator History of lumbar laminectomy (~12/2021) Dr Encarnacion at [facility] History of carpal tunnel surgery of right wrist Hx of decompressive lumbar laminectomy (~01/26/22) L5-S1 decompressive laminectomy with fusion - Dr Encarnacion at [facility] History of coronary artery stent placement 10/2017 x3 times Social History Social History Social History: Patient lives with her boyfriend in [place]. 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 Caffeine-occasionally Smoking status: Never smoker Second hand tobacco smoke exposure: Yes Alcohol intake: never Alcohol use details: rarely Substance use: never Substance use type: does not use Do You Feel Safe in your Home?: Yes Lack of Transportation: No Lack of Food: Never True Current Housing: I Have Housing Concerned About Future Housing: No Difficulty Paying Gas/Electric Bills: No Difficulty Paying for Meds: No Currently Unemployed: No Education: High School Diploma/GED Difficulty w/ Childcare or Family Care: No Living arrangements: with family Additional living arrangements comments: Occupation/Education: retired Gender identity (if verbalized by the patient): Female Sexual Orientation (if Verbalized by the Patient): Straight or Heterosexual Spiritual care concerns: No Agree to blood products: Yes Anes - Eval Final PreProcedure Day of Procedure 01/09/25 07:28 Patient weight: obese Heart: regular rate and rhythm Lungs: clear to auscultation Airway: Mallampati scale class III Neurological: alert and oriented Last oral intake: >/= 8 hours ASA classification: III Emergent: no Anesthetic plan: proceed Anesthesia type and monitoring: general ETT and standard monitoring Results Review: All pre-operative results and documents have been reviewed as part of the pre-operative evaluation. Informed Consent: The patient's anesthetic plan and its attendant risks and benefits were discussed with the patient/family/POA. Questions were solicited and answers provided to the satisfaction of the patient/family/POA.
[2025-01-09 07:40] VITALS: BP 110/61; PULSE 87; RESP 16; TEMP 36.6; O2SAT 100
--- NOTE | 2025-01-09 08:20 | PM.HPGS ---
History of Present Illness History of Present Illness Consent: Risks, benefits, and alternatives have been discussed and questions answered. Patient agrees to proceed with procedure. Chief complaint: chronic pain syndrome, postlaminectomy syndrme Narrative: Petra Paula is a 69 year old female with chronic, recalcitrant and disabling low back and lower extremity pain secondary to lumbosacral stenosis, spondylosis. postlaminectomy syndrome, radiculopathy with failure to respond to aggressive conservative measures including PT, oral and topical analgesics, opioid and nonopioid analgesics, rest, time and activity/behavioral modification over the past 6-12 months who presents for permanent placement Medtronic Synchromed 3 20ml IT pump and Ascenda Catheter under fluoroscopic guidance. Review of Systems Review of Systems: Patient denies any new infectious, allergic, cardiopulmonary, neurologic or constitutional symptoms or changes in activity tolerance or exercise capacity including new or progressive SOB/GLASS, peripheral edema, productive cough, dysuria, nausea/vomiting, diarrhea, weight change, fevers/chills/night sweats, new or progressive neurologic deficit, cognitive or mood changes since last seen, except as documented in the HPI. All systems reviewed & are unremarkable except as noted in HPI and below PMFSH Past Medical History Medical History Tinnitus Dizziness Hearing loss in right ear Chronic right shoulder pain Peripheral neuropathy Type 2 diabetes mellitus with diabetic neuropathy Stroke may 2017 Cataract 2014 History of kidney stones 2013 CAD in [place] artery Chronic low back pain Essential (primary) hypertension History of stroke Surgical History Surgical History S/P insertion of spinal cord stimulator History of [facility]20[facility] of carpal tunnel surgery of right wrist Hx of decompressive lumbar laminectomy (~01/26/22) L5-S1 decompressive laminectomy with fusion - Dr Encarnacion at [facility] History of coronary artery stent placement 10/2017 x3 times Social History Social History Social History: Patient lives with her boyfriend in [place]. 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 Caffeine-occasionally Smoking status: Never smoker Second hand tobacco smoke exposure: Yes Alcohol intake: never Alcohol use details: rarely Substance use: never Substance use type: does not use Do You Feel Safe in your Home?: Yes Lack of Transportation: No Lack of Food: Never True Current Housing: I Have Housing Concerned About Future Housing: No Difficulty Paying Gas/Electric Bills: No Difficulty Paying for Meds: No Currently Unemployed: No Education: High School Diploma/GED Difficulty w/ Childcare or Family Care: No Living arrangements: with family Additional living arrangements comments: Occupation/Education: retired Gender identity (if verbalized by the patient): Female Sexual Orientation (if Verbalized by the Patient): Straight or Heterosexual Spiritual care concerns: No Agree to blood products: Yes Meds Home Medications and Allergies Home Medications ?Medication ?Instructions ?Recorded ?Confirmed ?Type aspirin 81 mg tablet,delayed 81 mg PO DAILY 12/26/19 01/09/25 History release (Aspir-) loratadine 10 mg tablet (Claritin) 10 mg PO DAILY 02/29/20 01/09/25 History mecobalamin (vitamin B12) 1,000 2,000 mcg PO DAILY 02/29/20 01/09/25 History mcg chewable tablet hydrochlorothiazide 12.5 mg capsule 12.5 mg PO DAILY 10/14/22 01/09/25 History flash glucose scanning reader #1 ea 01/28/23 12/28/24 Rx (FreeStyle Lucille 2 [place]) flash glucose sensor (FreeStyle #2 ea 01/28/23 12/28/24 Rx Lucille 2 Sensor kit) semaglutide 2 mg/dose (8 mg/3 mL) 2 mg (0.75 mL) subcut WEEKLY #9 mL 06/03/23 01/09/25 Rx subcutaneous pen injector (Ozempic) cholecalciferol (vitamin D3) 25 25 mcg PO DAILY 10/26/23 01/09/25 History mcg (1,000 unit) capsule empagliflozin 25 mg tablet 25 mg PO DAILY 11/18/23 01/09/25 History (Jardiance) tramadol 50 mg tablet 50 mg PO Q6-8H PRN pain #14 tabs 02/14/24 12/28/24 Rx insulin lispro protamine-lispro 32 unit (0.32 mL) subcut BID #90 mL 08/02/24 01/09/25 Rx 100 unit/mL (75-25) subcutaneous pen (Humalog Mix 75-25 KwikPen) clopidogrel 75 mg tablet 75 mg PO DAILY #90 tabs 08/04/24 01/09/25 Rx naloxone 4 mg/actuation nasal spray 4 mg intranasal Q2-3M PRN opioid 08/21/24 12/28/24 Rx overdose #2 ea gabapentin 300 mg capsule See Rx Instructions .Route 09/07/24 01/09/25 Rx .COMPLEX #270 caps metoprolol succinate 25 mg 37.5 mg (1.5 x 25 mg) PO DAILY 09/07/24 01/09/25 Rx tablet,extended release 24 hr #135 tabs omeprazole 20 mg capsule,delayed 20 mg PO DAILY #90 caps 09/26/24 01/09/25 Rx release lisinopril 10 mg tablet 10 mg PO BID #180 tabs 10/25/24 01/09/25 Rx atorvastatin 20 mg tablet 20 mg PO QHS #90 tabs 12/06/24 01/09/25 Rx glucose 4 gram chewable tablet 16 g (4 x 4 gram) PO Q15M PRN 12/28/24 01/09/25 Rx hypoglycemia #360 tabs Allergies Allergy/AdvReac Type Severity Reaction Status Date / Time morphine AdvReac Severe Nausea and Verified 01/09/25 07:40 Vomiting Penicillins AdvReac Mild yeast Verified 01/09/25 07:40 infection metformin AdvReac Unknown Nausea and Verified 01/09/25 07:40 Vomiting Vital Signs Vital Signs - 24 hr 01/09/25 07:40 Temperature 97.8 F Pulse Rate 87 Respiratory Rate 16 Blood Pressure 110/61 Pulse Oximetry 100 Oxygen Delivery Room Air Exam Narrative: The patient's physical exam is essentially unchanged from prior examination on 10/24/2024. Specifically, patient demonstrates normal lung capacity, tidal volume and respiratory rate without wheezes, crackles, rales or rubs. Heart rate and rhythm are regular without murmurs, gallops or rubs. No JVD. Pulses 2+ globally without increasing peripheral edema. AAOx3 with no evidence of confusion, intoxication or altered mental state, NC/AT without acute distress or altered consciousness. Speech, cognition, mood, insight and judgment at baseline and within normal limits. Assessment and Plan Assessment and plan (1) Spinal stenosis, lumbar region with neurogenic claudication: Code(s): M48.062 - Spinal stenosis, lumbar region with neurogenic claudication Status: Acute (2) Lumbar post-laminectomy syndrome: Code(s): M96.1 - Postlaminectomy syndrome, not elsewhere classified Status: Acute (3) Peripheral neuropathy: Qualifiers: Peripheral neuropathy type: polyneuropathy, unspecified Qualified Code(s): G62.9 - Polyneuropathy, unspecified Code(s): G62.9 - Polyneuropathy, unspecified Status: Acute (4) Chronic low back pain: Code(s): M54.5 - Low back pain; G89.29 - Other chronic pain Status: Chronic Plan proceed as planned with permanent placement Medtronic Synchromed 3 20ml IT pump and Ascenda Catheter under fluoroscopic guidance.
--- NOTE | 2025-01-09 08:23 | WPDHPUPDATE1 ---
History and Physical Update Update Date/Time: 01/09/25 08:23 History and Physical has been reviewed, including an updated exam of the patient. There are NO changes in the patient's condition. Risks, benefits, and alternatives have been discussed and questions answered. Patient agrees to proceed with procedure.
--- NOTE | 2025-01-09 08:26 | P.OP_ITS ---
Procedure Note - Detailed Date of Procedure 01/09/25 Pre-op Diagnosis chronic pain syndrome, postlaminectomy syndrme Post-op Diagnosis Same Procedure Performed Permanent implantation of Medtronic SynchroMed III 20 mL intrathecal pain pump and percutaneous, tunneled Ascenda intrathecal catheter for chronic targeted drug delivery under fluoroscopic guidance. Surgeon Amor Steiner MD Anesthesia General ([General anesthesia] in the [left lateral decubitus] position [via LMA] with local anesthetic infiltration. ) Description of Procedure INFORMED CONSENT, EDUCATION AND PREPARATION: Procedure was discussed in detail with the patient at a previous visit and at the time of surgery. The risks, ronna efits, and alternatives to the procedure, including doing nothing, were discussed in detail with the patient, who expressed explicit understanding and consent to proceed. Specific risks discussed with the patient included, but were not limited to the risk of serious local or systemic infection, major or minor bleeding/bruising, allergic reaction to medications or materials, inadvertent lung or other organ injury, inadvertent nerve or spinal cord injury resulting in, amongst other changes, increased pain, weakness, numbness or loss of bowel or bladder control, programming or technical error leading to unintentional overdose or underdose of medications resulting in sedation, respiratory depression, hypoxic brain injury and/or or major or minor withdrawal symptoms, device malfunction and inability to treat pain, device migration or malfunction resulting in the need for repeat or additional surgery, acute or chronic/persistent CSF leak and post-dural puncture headache, eye or dental injury, joint, nerve, spine or soft tissue injury/pain related to positioning, heart attack, hemorrhagic or ischemic stroke, seizure, coma and . Patient understands these risks and agrees that the opportunity for benefit outweighs the potential risk of harm. Informed Consent form was read, reviewed and signed. All pertinent questions were asked and answered to the patient's satisfaction. Surgical site was pre-treated with chlorhexidine wipes. All materials required for implantation were available and site and side of implant were marked prior to procedure start. Appropriate timeout was conducted prior to incision. PROCEDURE IN DETAIL: The patient indicated their completion of a 4% chlorhexidine shower at home and surgical site was pre-treated with chlor hexidine wipes in pre-operative holding. IV prophylactic antibiotics were initiated in holding. The patient was brought to the operative suite and placed in the supine position. ASA standard monitors were attached. General anesthesia was initiated via ETT without difficulty or event. The patient's eyes were protected. The patient was transitioned into the left lateral decubitus position. Joints were placed in neutral position, pressure points were padded and breast/genitals were evaluated and protected as appropriate. Skin overlying the planned incision sites were marked with sterile skin marker. Surgical site was prepared in the typical sterile fashion with 67% isopropyl alcohol pre-treatment and Chloraprep solution which was allowed to dry completely for greater than 3 minutes. The patient was then draped in a typical sterile fashion. Aseptic technique was utilized throughout. In the AP view relative to the patient, L1-L2 interspace was identified. Skin overlying the needle entry site was anesthetized with approximately 10 mL of a 1:1 admixture of 0.5% preservative-free bupivacaine with epinephrine and 2.0% preservative- free lidocaine with epinephrine via a 27-gauge needle after negative aspiration. Anesthesia was extended to the vertebral lamina at the level of interest through the injection of an additional 5 mL of the above local anesthetic admixture via a 22-gauge Quincke spinal needle after negative aspiration. A 2 cm incision was made in the skin at the thoracolumbar level just right of midline. The wound was dissected to thoracolumbar fascia using a combination of electrocautery and blunt dissection. Hemostasis was obtained with electrocautery and confirmed. A 17-gauge spinal needle was advanced toward the midline until periosteum was contacted at the right L2 lamina. Needle was walked off superiorly, medially and anteriorly until reaching the epidural space where appropriate loss of resistance to air was observed using a plastic loss of resistance syringe. Appropriate needle depth within the posterior epidural space was identified in the lateral view. Needle was rotated so that bevel was in a vertical plane. Needle was advanced slowly and intermittently until a tactile dural puncture was achieved and clear CSF was visualized returning from the needle, which was then occluded. Less than 5ml of CSF was lost at time of puncture and throughout the case. The Ondango Ascenda catheter was advanced at the midline in the posterior intrathecal space until the radiopaque tip was adjacent to the T7-T8 interspace in the AP view. Appropriate positioning was then confirmed and recorded in both the AP and lateral views. The stylet was removed from the catheter and free-flowing, clear CSF was identified from the distal tip. Catheter was secured and re-occluded with a rubber-shod clamp. A single 0 Ethibond suture was placed in a purse-string fashion around the needle shaft within the thoracolumbar fascia. An additional 2 x 0 Ethibond sutures were placed left and right of the needle shaft and were secured to thoracolumbar fascia. Needle was then withdrawn over the catheter under live fluoroscopy to ensure lack of catheter migration. [place] were removed intact and without difficulty. No visible blood or CSF was noted emanating from catheter entry site. The purse-string suture was secured around the catheter to limit risk of CSF extravasation. A deployable winged friction anchor was placed over the catheter, such that the proximal end of the anchor was buried within fascia, without evidence of catheter migration on lateral fluoroscopic view. Catheter was then secured to thoracolumbar fascia via the winged anchor and previously placed 0 Ethibond sutures. Free flow clear CSF was again observed from the dis serafin tip of the catheter which was then re-occluded. This was intermittently confirmed throughout the duration of the case. Attention was then turned to creation of the pump pocket in the right dharmesh umbilical region. After appropriate anesthesia by infiltration with additional 10 mL of the above local anesthetic admixture via 27-gauge needle after negative aspiration, an 8 cm horizontal incision was made with a #15 scalpel, and hemostasis obtained with electrocautery. A combination of blunt dissection and electrocautery was used to create an appropriately sized subcutaneous, supra- fascial pocket in the patient's right lower quadrant. Hemostasis was obtained with electrocautery and confirmed. 4 x 0 Ethibond sutures were placed in all 4 quadrants of the pocket and secured to abdominal fascia. Using the can striper-supplied tunneling device, the catheter was tunneled from the inferior pole of the midline thoracolumbar incision to the superolateral portion of the newly created pocket without difficulty. An appropriately sized stress relieving loop was maintained at the catheter entry site. Free flow clear CSF was again documented from the distal catheter. On the back table, sterile saline was withdrawn from the pump through the pump refill port using a sterile 24 g non-coring needle and aseptic, sterile technique. 20 mL of 0.5 mg/mL preservative-free morphine sulfate was instilled into the pump through a 0.2 micron filter prior to implantation. Catheter was carefully and securely attached to the suture-less connector. The connector was then attached to the ejection port on the pump without difficulty. A firm, reliable connection was tested and confirmed. Clear CSF was then aspirated from the catheter access port on the pump using a 24 g non-coring needle, confirming patent communication with the intrathecal space and continuity of the complete system. Excess catheter was then coiled behind the pump and the pump was placed within the pocket, so that the catheter access port was pointing towards the umbilicus and the pump refill port was facing externally. Pump was then secured to the abdominal fascia using the previously placed 0 Ethibond sutures. Each incision site was then irrigated with copious amounts of IrriCept 0.5% CHG irrigation solution. 500mg of powdered vancomycin was placed, proportionately divided between the lead insertion site and the pocket, prior to closure. Hemostasis was observed and confirmed. Each wound was then closed in a layered fashion using 2-0 antimicrobial vicryl interrupted sutures for the deeper layers and a co ntinuous antimicrobial 4-0 Monocryl for superficial layers. Epidermis was sealed with wound glue. Once wound glue had dried, the wound was then covered with Telfa and Tegaderm dressing. The pump was programmed to deliver 0.025 mg of PF hydromorphone in 24 hours in a continuous fashion. No PTM was established. The patient was converted to the supine position and anesthesia was reversed without difficulty. The patient was transported to the recovery area in stable condition, neurologically intact with no evidence of complication and with pain appropriately controlled. The patient was instructed to avoid heavy or repetitive lifting, bending at the waist, lifting and twisting, reaching or overhead work for the next 4-6 weeks. Patient and available family members/caregivers were instructed verbally regarding appropriate postoperative activity restrictions and wound care, both in the immediate preoperative period and in the postoperative period. Instructions were both reviewed with and provided to the patient in written form prior to discharge and included: Patient to remain in the present of a responsible adult for at least 48 hours. Patient was instructed to keep previously prescribed unexpired IM/IN narcan within ready access to both patient and caregiver(s) until follow up and at each dose adjustment. Patient, amongst other requirements, was instructed to avoid driving or soaking/submerging incisions until released and to monitor for signs of infection including fevers, chills, night sweats, any redness, warmth or discharge around the incision sites, increased pain, opening/bleeding of the wound, new pain, weakness, or numbness in the neck, back or upper and lower extremities, loss of bowel or bladder control, confusion or headaches that are persistent, severe or new. Patient expressed understanding prior to leaving the hospital. Signs and symptoms of infection, epidural abscess or hematoma, intracranial hypotension, opioid withdrawal or overdose and post-dural puncture headache were described to the patient who was instructed to call if these symptoms present, and in the case of spinal headache to remain recumbent when possible, hydrate as tolerated based on medical conditions to the point of passing clear or mostly clear urine every 2-3 hours, caffeinated beverages and smea-wqd-lluyfeg analgesics as able and tolerated. Patient will monitor for all signs/symptoms and call our office immediately should they occur or report directly to the nearest Emergency Department if after hours or no immediate response. Immediate follow up was planned by telephone in 2-3 days and in person in 7-10 days. COMMENTS: None. COMPLICATIONS: None. ESTIMATED BLOOD LOSS: 20 mL IV FLUIDS: On chart. SPECIMEN: None. DRAINS: None. Complications No immediate complications Condition Stable Disposition PACU [facility] Billing Surgery - Charge Forward: Surgery Billing
[2025-01-09] MEDS: ceFAZolin 2 GM/D5W 50 ML 2 GM/50 ML BAG IVPB (08:50)
[2025-01-09] MEDS: BUPIVACAINE/EPINEPHRINE 0.5% 50 ML VIAL 30 ML INFILTRATE (10:01)
[2025-01-09] MEDS: BUPIVACAINE XX (10:31)
[2025-01-09] MEDS: CLONIDINE XX (10:31)
[2025-01-09] MEDS: HYDROMORPHONE XX (10:31)
[2025-01-09] MEDS: IRRISEPT 450 ML IRRIGATION BOTTLE IRRIGATION (10:36)
[2025-01-09] MEDS: VANCOMYCIN HCL 1,000 MG VIAL 1000 MG TOPICAL (10:48)
[2025-01-09 11:43] VITALS: BP 124/61; PULSE 82; RESP 18; TEMP 36.1; O2SAT 94
[2025-01-09 11:48] LABS: Glucose Point of Care 172 mg/dl (65-105)
[2025-01-09 11:55] VITALS: BP 109/67; PULSE 81; RESP 14; O2SAT 93
[2025-01-09 12:10] VITALS: BP 124/55; PULSE 84; RESP 16; O2SAT 93
[2025-01-09 12:18] VITALS: BP 124/47; PULSE 83; RESP 16
[2025-01-09] MEDS: oxyCODONE HCL (*CRX) 5 MG TAB IR PO (12:25)
[2025-01-09 12:48] VITALS: BP 118/76; PULSE 80; RESP 16
== END 2025-01-09 13:05 | disposition home or self-care (01) ==
PROVIDERS: PCP Family Medicine; Visit Provider Anesthesiology Pain Medicine
PROC: (CPT 62362; principal; 2025-01-09 08:30)
DX: M48.062 Spinal stenosis, lumbar region with neurogenic claudication (principal); M96.1 Postlaminectomy syndrome, not elsewhere classified; G62.9 Polyneuropathy, unspecified; G89.29 Other chronic pain; M54.50 Low back pain, unspecified; I10 Essential (primary) hypertension; I25.10 Atherosclerotic heart disease of native coronary artery without angina pectoris; E11.40 Type 2 diabetes mellitus with diabetic neuropathy, unspecified; M25.511 Pain in right shoulder; E66.9 Obesity, unspecified; Z68.41 Body mass index [BMI] 40.0-44.9, adult; Z79.82 Long term (current) use of aspirin; Z79.85 Long-term (current) use of injectable non-insulin antidiabetic drugs; Z79.84 Long term (current) use of oral hypoglycemic drugs; Z79.4 Long term (current) use of insulin; Z79.891 Long term (current) use of opiate analgesic; Z79.02 Long term (current) use of antithrombotics/antiplatelets; Z98.890 Other specified postprocedural states; Z98.1 Arthrodesis status; Z96.82 Presence of neurostimulator; Z95.5 Presence of coronary angioplasty implant and graft; Z87.442 Personal history of urinary calculi; Z86.73 Personal history of transient ischemic attack (TIA), and cerebral infarction without residual deficits
CPT/HCPCS: 62362; 62350; 82948; 99199; A9270; C1755; J0330; J0690; J1100; J2003; J2004; J2405; J2704; J3370; J7120

== ENCOUNTER 2025-01-14 19:23 | Inpatient (IN) | payer MEDICARE, SELFPAY ==
[2025-01-14] VITALS (15 sets, daily range): BP systolic 106–159; BP diastolic 50–94; PULSE 87–116; RESP 10–24; TEMP 36.6; O2SAT 93–100
--- NOTE | ~2025-01-14 | CT_ITS ---
CT of the Abdomen and Pelvis: Indication: Abdominal pain Technique: 2.5 mm axial scans were obtained through the abdomen and pelvis following intravenous adm inistration of 100 cc of Omnipaque 350. Dose reduction technique was used on this scan by utilizing a utomated exposure control and iterative reconstruction technique. The dose-length product (DLP) was 1 314.78 mGy-cm. Findings: Scans through the lung bases demonstrate discoid left basilar atelectasis or scarring. Small left hepatic lobe cyst present. Calcified gallstones are present. The spleen, pancreas, adrenal s and kidneys are within normal limits. There are extensive atherosclerotic calcifications of the aor ta and iliac vessels. No lymphadenopathy. No bowel obstruction or bowel wall thickening. There is no evidence to suggest acute appendicitis. Sm all to moderate fat-containing umbilical hernia present. Subcutaneous pain pump present. Images through the pelvis were performed. Questionable mild diffuse urinary bladder wall thickening. No pelvic mass seen. No ascites. Impression: Suspected cystitis. Correlate with urinalysis. Small to moderate fat-containing umbilical hernia. Cholelithiasis. Reviewed, dictated and finalized at [facility]. LE CHECKER Impression: Suspected cystitis. Correlate with urinalysis. Small to moderate fat-containing umbilical hernia. Cholelithiasis.
--- NOTE | ~2025-01-14 | XR_ITS ---
Portable chest x-ray Comparison: 03/09/2005 Clinical History: Weakness Findings: Lungs are clear, without focal consolidation or pleural effusion. Cardiomediastinal silho uette is stable. Bones and soft tissues are unremarkable. Impression: Clear lungs. Reviewed, dictated and finalized at location . LLITE TECHNICIAN Impression: Clear lungs.
--- OUTSIDE RECORDS SUMMARY | 2025-01-14 19:27 | XMS_ITS | Clinical Summary ---
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
--- OUTSIDE RECORDS SUMMARY | 2025-01-14 19:27 | XMS_ITS | Clinical Summary ---
Author Organization [facility] Address [address] [place] [id number] Care Team Providers Care Applications Systems Analyst Name Role Phone Edad Adames MD Primary Care Provider Amor Steiner MD Unavailable [phone] Allergies Active Allergy Reactions Criticality Noted [...] Type 2 diabetes mellitus without complications ( [facility]) 06/19/2022 Positive cardiac stress test 06/19/2022 Hyperlipidemia, unspecified 06/19/2022 Morbid obesity with BMI of 40.0-44.9, adult 05/16 Assessment & Plan (07/23/2022 2:55 PM CDT): Unstable Caloric restriction and exercise for weight reduction Assessment & Plan (06/19/2022 11:40 AM CDT): Unstable Caloric restriction exercise for weight reduction Assessment & Plan (01/13/2022 11:53 AM POLYSOMNOGRAPHY TECHNICIAN): She would benefit from weight loss, but [...] (CMS/HCC) 10/04/2017 Coronary artery disease invo lving [place] coronary artery of [place] heart without angina pectoris 10/04/2017 Assessment & Plan (07/23/2022 2:54 PM CDT): Stable Continue aspirin/Plavix, Toprol-XL, sublingual nitro Assessment & Plan (06/22/2022 4:00 PM CDT): Stable Continue , aspirin, Lipitor, Plavix, insulin, lisinopril, metoprolol XL, sublingual nitro Assessment & Plan (01/13/2022 11:54 AM POLYSOMNOGRAPHY TECHNICIAN): Coronary disease is asymptomatic. Her electrocardiogram shows no change from baseline. She will follow-up in six months with Dr. Tomlinson, whom she knows from her coronary interventions. She understands that he will be retiring in a year, and he will refer her to another clinical microbiologist in the practice at that time. Her [...] therapy. Assessment & Plan (10/24/2020 2:49 PM POLYSOMNOGRAPHY TECHNICIAN): Asymptomatic. Continue dual anti-platelet therapy. Assessment & Plan (04/22/2020 11:21 AM CDT): No symptoms of myocardial ischemia. Continue dual anti-platelet therapy. If surgery is recommended, she should have a pharmacologic stress test beforehand. Assessment & Plan (10/20/2019 12:03 PM POLYSOMNOGRAPHY TECHNICIAN): No symptoms of myocardial ischemia. She has [...] therapy. Assessment & Plan (01/16/2018 9:25 PM POLYSOMNOGRAPHY TECHNICIAN): She is not having any symptoms of [...] level. Assessment & Plan (11/01/2017 8:06 AM POLYSOMNOGRAPHY TECHNICIAN): No symptoms of myocardial ischemia. She is [...] XL Assessment & Plan (01/13/2022 11:51 AM POLYSOMNOGRAPHY TECHNICIAN): Blood pressure is controlled on her current regimen including amlodipine 5 mg daily, lisinopril 10 mg twice a day, and metoprolol succinate 37.5 mg daily. Continue these. Assessment & Plan (06/09/2021 12:07 PM CDT): Blood pressure is adequately controlled on current regimen. No change was made. Assessment & Plan (10/24/2020 2:49 PM POLYSOMNOGRAPHY TECHNICIAN): Not consistently ideally controlled. Will increase metoprolol to 37.5 mg daily. Assessment & Plan (04/22/2020 11:22 AM CDT): Blood pressure is adequately controlled on current regimen. No change was made. Assessment & Plan (10/20/2019 12:03 PM POLYSOMNOGRAPHY TECHNICIAN): Blood pressure is adequately controlled on current [...] altogether. Assessment & Plan (01/16/2018 9:23 PM POLYSOMNOGRAPHY TECHNICIAN): Blood pressure is adequately controlled on current regimen. No change was made. Assessment & Plan (11/01/2017 8:07 AM POLYSOMNOGRAPHY TECHNICIAN): Blood pressure is adequately controlled on current regimen. No change was made. Assessment & Plan (09/28/2017 2:37 PM POLYSOMNOGRAPHY TECHNICIAN): Blood pressure is adequately controlled on current regimen. No change was made. Hyperlipidemia 09/28/2017 Assessment & Plan (07/23/2022 2:54 PM CDT): Stable Continue Lipitor Assessment & Plan (06/19/2022 11:39 AM CDT): Stable Continue Lipitor Assessment & Plan (01/13/2022 11:52 AM POLYSOMNOGRAPHY TECHNICIAN): Continue atorvastatin 20 mg daily. Assessment & Plan (06/09/2021 12:07 PM CDT): On chronic lipid lowering therapy with good control. No changes made. Assessment & Plan (10/24/2020 2:50 PM POLYSOMNOGRAPHY TECHNICIAN): On chronic lipid lowering therapy with good control. No changes made. Assessment & Plan (04/22/2020 11:23 AM CDT): Lipids checked recently thru PCP were normal. Continue high-intensity statin therapy. Assessment & Plan (10/20/2019 12:03 PM POLYSOMNOGRAPHY TECHNICIAN): On chronic lipid lowering therapy with good control. No changes made. Assessment & Plan (02/20/2019 7:37 PM CDT): She is on high-intensity statin therapy. LDL is well controlled. Assessment & Plan (04/29/2018 5:03 PM CDT): On chronic lipid lowering therapy with good control. No changes made. Assessment & Plan (01/16/2018 9:25 PM POLYSOMNOGRAPHY TECHNICIAN): On chronic lipid lowering therapy with good control. No changes made. Assessment & Plan (11/01/2017 8:07 AM POLYSOMNOGRAPHY TECHNICIAN): On chronic lipid lowering therapy with good control. No changes made. Assessment & Plan (09/28/2017 2:38 PM POLYSOMNOGRAPHY TECHNICIAN): On chronic lipid-lowering therapy. Cerebrovascular accident 06/01/2017 Type 2 diabetes mellitus without complication (C MS/HCC) 06/01/2017 Assessment & Plan (06/19/2022 11:40 AM CDT): Stable Continue insulin, Lipitor Essential hypertension 06/01/2017 Hyperlipidemia 06/01/2017 Resolved Problems Problem Noted Date Diagnosed Date Resolved Date Abnormal nuclear stress test 09/28/2017 04/29/2018 Assessment & Plan (09/28/2017 2:37 PM POLYSOMNOGRAPHY TECHNICIAN): Small, mild, reversible inferior defect which could represent myocardial ischemia despite the absence of symptoms. She does have significant risk factors for coronary artery disease. I recommended cardiac catheterization, procedure with which she is familiar. She agrees to proceed. She understands that, if appropriate, coronary intervention would take place at the same time. Encounters Date Type Department Care Team Description 12/29/2024 11:15 AM POLYSOMNOGRAPHY TECHNICIAN Office Visit [facility] Cardiology [address] [place] [address] [address] [address] Arun De Los Santos MD Hyperlipidemia, unspecified hyperlipidemia type (Primary Dx) 12/01/2024 Telephone [facility] Cardiology [address] [place] [address] [address] [address] Arun De Los Santos MD from Last [...] Comments Blood Pressure 120/70 12/29/2024 11:29 AM POLYSOMNOGRAPHY TECHNICIAN Pulse 80 12/29/2024 11:29 AM POLYSOMNOGRAPHY TECHNICIAN Temperature 36.7 C (98.1 F) 06/12/2013 4:03 PM CDT Respiratory Rate 18 10/04/2017 9:20 AM POLYSOMNOGRAPHY TECHNICIAN Oxygen Saturation 96% 12/29/2024 11:29 AM POLYSOMNOGRAPHY TECHNICIAN Inhaled Oxygen Concentration - - Weight 107 kg (236 lb) 12/29/2024 11:29 AM POLYSOMNOGRAPHY TECHNICIAN Height 160 cm (5' 3 ) 12/29/2024 11:29 AM POLYSOMNOGRAPHY TECHNICIAN Body Mass Index 41.81 12/29/2024 11:29 AM POLYSOMNOGRAPHY TECHNICIAN Plan of Treatment Health Maintenance Due Date [...] LIPID PANEL Routine 12/29/2024 11:3 0 AM POLYSOMNOGRAPHY TECHNICIAN Hyperlipidemia, unspecified hyperlipidemia type ALBUMIN CREATININE RATIO, URINE Routine 03/01/2020 EGFR Routine 11/13/2017 12:59 AM POLYSOMNOGRAPHY TECHNICIAN from Last 3 Months or Most Recently Relevant to Health Maintenance Results * POCT lipid panel (12/29/2024 11:30 AM POLYSOMNOGRAPHY TECHNICIAN) Cholesterol, POC 126 mg/dL HDL, POC 68 mg/dL Triglycerides, POC 73 mg/dL LDL Cholesterol POC 43 mg/dL Chol/HDL Ratio, POC 0.6 Non-HDL Cholesterol, POC 58 mg/dL Cholesterol Total, POC 126 mg/dL Capillary blood 12/29/2024 1 1:30 AM POLYSOMNOGRAPHY TECHNICIAN Arun De Los Santos MD POINT OF CARE TEST ORDERA BLES Final Result * Albumin Creatinine Ratio, Urine (03/01/2020) Urine Edda Adames MD LAB URINE ORDERABLES F inal Result * eGFR (11/13/2017 12:59 AM POLYSOMNOGRAPHY TECHNICIAN) eGFR 95 mL/min/1.7 3 m2 [facility] Comment: Interpretive Data Reference Interval Normal >/= 90 mL/min/1.73m2 Mildly decreased* 60 - 89 mL/min/1.73m2 Mildly to moderately decreased 45 - 59 mL/min/1.73m2 Moderately to severely decreased 30 - 44 mL/min/1.73m2 Severely decreased 15 - 29 mL/min/1.73m2 Kidney Failure < 15 mL/min/1.73m2 *Relative to young adult level If -Citizen Of [place] multiply value by 1.16. Estimated glomerular filtration [...] 2017. Blood specimen (specimen) 11/13/2017 12:59 AM POLYSOMNOGRAPHY TECHNICIAN 11/13/2017 1:44 AM POLYSOMNOGRAPHY TECHNICIAN Narrative [facility] - 11/13/2017 2:10 AM POLYSOMNOGRAPHY TECHNICIAN Hemal Tomlinson DO LAB BLOOD ORDERABLES Final Result [facility] [address] Department [place] [address] from Last 3 Months or Most Recently Relevant to Health Maintenance Insurance MEDICARE [facility] MEDICARE AARP Care Teams Applications Systems Analyst Relationship Specialty Start Date End Date Edda Adames MD PCP - General 09/02/17 Amor Steiner MD [address] [place] [address] [place] [address] Referring Physician Pain Management 01/04/25
--- OUTSIDE RECORDS SUMMARY | 2025-01-14 19:27 | XMS_ITS | Continuity of Care Document ---
Author Organization [facility] Address [address] [place] [address] Phone Care Team Providers Care Account Support Associate Name Role Phone Arun Raines MD Unavailable Unavailable Advance Directives Directive Yes / No Effective Date File Name No Information Encounters Encounter Description Practice Location Reason(s) For Visit Diagnoses Date Provider Providers Copied on Encounter [facility], [address], [place], [place], [id number], tel:[phone] [facility] No Information Yanna Dias. [address], [place], [id number], . tel:[phone] Referring Provider: Chacorta Gray, [address] [facility] [address], [place], [address]. tel:[phone] Family History Family Member Type Diagnosis Age At Onset No Information Payers Payer name Insurance type Covered alliance party ID Authoriza tion(s) BCBS INACTIVE OUT OF STATE [id number] Social History Type Description Quantity Date Captured [...]
--- OUTSIDE RECORDS SUMMARY | 2025-01-14 19:27 | XMS_ITS | Referral Summary ---
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) 06/19/2022 Positive cardiac stress test 06/19/2022 Hyperlipidemia, unspecified 06/19/2022 Morbid obesity with BMI of 40.0-44.9, adult 05/16 Assessment & Plan (07/23/2022 2:55 PM CDT): Unstable Caloric restriction and exercise for weight reduction Assessment & Plan (06/19/2022 11:40 AM CDT): Unstable Caloric restriction exercise for weight reduction Assessment & Plan (01/13/2022 11:53 AM [employer]): She would benefit from weight loss, but [...] to 5 mg daily. Aortic ectasia, thoracic ([facility]/HCC) 10/04/2017 Coronary artery disease invo lving [place] coronary artery of [place] heart without angina pectoris 10/04/2017 Assessment & Plan (07/23/2022 2:54 PM CDT): Stable Continue aspirin/Plavix, Toprol-XL, sublingual nitro Assessment & Plan (06/22/2022 4:00 PM CDT): Stable Continue , aspirin, Lipitor, Plavix, insulin, lisinopril, metoprolol XL, sublingual nitro Assessment & Plan (01/13/2022 11:54 AM [employer]PERINT[employer]): Coronary disease is asymptomatic. Her electrocardiogram shows no change from baseline. She will follow-up in six months with Dr. Bushra, whom she knows from her coronary interventions. She understands that he will be retiring in a year, and he will refer her to another calender tender in the practice at that time. Her [...] therapy. Assessment & Plan (10/24/2020 2:49 PM [employer]PERINTENDENT [employer]): Asymptomatic. Continue dual anti-platelet therapy. Assessment & Plan (04/22/2020 11:21 AM CDT): No symptoms of myocardial ischemia. Continue dual anti-platelet therapy. If surgery is recommended, she should have a pharmacologic stress test beforehand. Assessment & Plan (10/20/2019 12:03 PM [employer]): No symptoms of myocardial ischemia. She has [...] therapy. Assessment & Plan (01/16/2018 9:25 PM [employer]PER[employer]): She is not having any symptoms of [...] level. Assessment & Plan (11/01/2017 8:06 AM [employer]PERINT[employer]): No symptoms of myocardial ischemia. She is [...] XL Assessment & Plan (01/13/2022 11:51 AM SUPERINT[employer]): Blood pressure is controlled on her current regimen including amlodipine 5 mg daily, lisinopril 10 mg twice a day, and metoprolol succinate 37.5 mg daily. Continue these. Assessment & Plan (06/09/2021 12:07 PM CDT): Blood pressure is adequately controlled on current regimen. No change was made. Assessment & Plan (10/24/2020 2:49 PM [employer]PERINT[employer]): Not consistently ideally controlled. Will increase metoprolol to 37.5 mg daily. Assessment & Plan (04/22/2020 11:22 AM CDT): Blood pressure is adequately controlled on current regimen. No change was made. Assessment & Plan (10/20/2019 12:03 PM [employer]): Blood pressure is adequately controlled on current [...] altogether. Assessment & Plan (01/16/2018 9:23 PM [employer]PERINT[employer]): Blood pressure is adequately controlled on current regimen. No change was made. Assessment & Plan (11/01/2017 8:07 AM [employer]PERINT[employer]): Blood pressure is adequately controlled on current regimen. No change was made. Assessment & Plan (09/28/2017 2:37 PM [employer]PER[employer]): Blood pressure is adequately controlled on current regimen. No change was made. Hyperlipidemia 09/28/2017 Assessment & Plan (07/23/2022 2:54 PM CDT): Stable Continue Lipitor Assessment & Plan (06/19/2022 11:39 AM CDT): Stable Continue Lipitor Assessment & Plan (01/13/2022 11:52 AM SUPERINT[employer]): Continue atorvastatin 20 mg daily. Assessment & Plan (06/09/2021 12:07 PM CDT): On chronic lipid lowering therapy with good control. No changes made. Assessment & Plan (10/24/2020 2:50 PM [employer]): On chronic lipid lowering therapy with good control. No changes made. Assessment & Plan (04/22/2020 11:23 AM CDT): Lipids checked recently thru PCP were normal. Continue high-intensity statin therapy. Assessment & Plan (10/20/2019 12:03 PM [employer]): On chronic lipid lowering therapy with good control. No changes made. Assessment & Plan (02/20/2019 7:37 PM CDT): She is on high-intensity statin therapy. LDL is well controlled. Assessment & Plan (04/29/2018 5:03 PM CDT): On chronic lipid lowering therapy with good control. No changes made. Assessment & Plan (01/16/2018 9:25 PM [employer]): On chronic lipid lowering therapy with good control. No changes made. Assessment & Plan (11/01/2017 8:07 AM [employer]): On chronic lipid lowering therapy with good control. No changes made. Assessment & Plan (09/28/2017 2:38 PM [employer]): On chronic lipid-lowering therapy. Cerebrovascular accident 06/01/2017 Type 2 diabetes mellitus without complication (C MS/HCC) 06/01/2017 Assessment & Plan (06/19/2022 11:40 AM CDT): Stable Continue insulin, Lipitor Essential hypertension 06/01/2017 Hyperlipidemia 06/01/2017 Resolved Problems Problem Noted Date Diagnosed Date Resolved Date Abnormal nuclear stress test 09/28/2017 04/29/2018 Assessment & Plan (09/28/2017 2:37 PM [employer]): Small, mild, reversible inferior defect which could [...] Comments Blood Pressure 120/70 12/29/2024 11:29 AM [employer] Pulse 80 12/29/2024 11:29 AM [employer] Temperature 36.7 C (98.1 F) 06/12/2013 4:03 PM CDT Respiratory Rate 18 10/04/2017 9:20 AM [employer]PER[employer] Oxygen Saturation 96% 12/29/2024 11:29 AM [employer] Inhaled Oxygen Concentration - - Weight 107 kg (236 lb) 12/29/2024 11:29 AM [employer] Height 160 cm (5' 3 ) 12/29/2024 11:29 AM [employer] Body Mass Index 41.81 12/29/2024 11:29 AM [employer] Plan of Treatment Not on file Procedures Procedure Name Priority Date/Time Associated Diagnosis Comments POCT LIPID PANEL Routine 12/29/2024 11:3 0 AM [employer] Hyperlipidemia, unspecified hyperlipidemia type ALBUMIN CREATININE RATIO, URINE Routine 03/01/2020 EGFR Routine 11/13/2017 12:59 AM [employer] from Last 3 Months or Most Recently Relevant to Health Maintenance Results * POCT lipid panel (12/29/2024 11:30 AM [employer]) Cholesterol, POC 126 mg/dL HDL, POC 68 mg/dL Triglycerides, POC 73 mg/dL LDL Cholesterol POC 43 mg/dL Chol/HDL Ratio, POC 0.6 Non-HDL Cholesterol, POC 58 mg/dL Cholesterol Total, POC 126 mg/dL Capillary blood 12/29/2024 1 1:30 AM [employer] us Arun De Los Santos MD POINT OF CARE TEST ORDERA BLES Final Result * Albumin Creatinine Ratio, Urine (03/01/2020) Urine us Edda Adames MD LAB URINE ORDERABLES F inal Result * eGFR (11/13/2017 12:59 AM [employer]) eGFR 95 mL/min/1.7 3 m2 [facility] Comment: Interpretive Data Reference Interval [...] 2017. Blood specimen (specimen) 11/13/2017 12:59 AM [employer] 11/13/2017 1:44 AM [employer] Narrative [facility] - 11/13/2017 2:10 AM [employer]PER[employer] Hemal Tomlinson DO LAB BLOOD ORDERABLES Final Result [facility] [address] [place] [address] from Last 3 Months or Most Recently Relevant to Health Maintenance Insurance MEDICARE [facility] MEDICARE [facility] Care Teams Sales Training Representative Relationship Specialty Start Date End Date Edda Adames MD PCP - General 09/02/17 Amor Steiner MD [address] [place] [address] [place] [address] Referring Physician Pain Management 01/04/25
--- OUTSIDE RECORDS SUMMARY | 2025-01-14 19:27 | XMS_ITS | Continuity of Care Document ---
Author Organization [facility] Address [address] [place] [address] Phone Care Team Providers Care Swahili Teacher Name Role Phone Farooq Xie Unavailable Unavailable [...] Diagnoses Date Provider Providers [facility] on [facility] [address], [place], [place], [id number], [place] tel:[phone] [facility] No Information Oct-2 6-200 9 Anne-Marie Trivedi. [address] [place], [address], [place]. tel:[phone] Referring Provider: Farooq Montana, [address] [place], [address]. tel:[phone] [facility], [address], [place], [place], [id number], [place] tel:[phone] [facility] No Information Oct-1 2-200 9 Anne-Marie Trivedi. [address] [place], [address], [place]. tel:[phone] Referring Provider: Farooq Montana, [address] [place], [address]. tel:[phone] [facility], [address] [place] [address] [address], [place], [place], [id number], [place] tel:[phone] [facility] No Information Sep-1 4-200 9 Anne-Marie Trivedi. [address] [place], [address], [place]. tel:[phone] Referring Provider: Farooq Montana, [address] [place], [address]. tel:[phone] [facility], [id number] [place] [address] [address], [place], [place], [id number], [place] tel:[phone] [facility] No Information Aug-3 1-200 9 Anne-Marie Trivedi. [address] [place], [address], [place]. tel:[phone] [facility], [address] [place] [address] [address], [place], [place], [id number], [place] tel:[phone] [facility] No Information Aug-2 4-200 9 Anne-Marie Trivedi. [address] [place], [address], [place]. tel:[phone] Referring Provider: Farooq Montana, [address] [place] [address], [address]. tel:[phone] Office Consultation [facility], [address] [place] [address] [address], [place], [place], [id number], tel:[phone] [facility] No Information 9 Anne-Marie Trivedi. [address] [place], [place], [facility], . tel:[phone] Referring Provider: Brandy Luna, [address], [place], [place], [facility]. tel:[phone] [facility], [address], [place], [place], [id number], tel:[phone] [facility] No Information 9 Beverly Nava. [address] [facility] , [address], [place], [address], . tel:[phone] Family History Family Member Type Diagnosis Age [...]
--- OUTSIDE RECORDS SUMMARY | 2025-01-14 20:54 | XMS_ITS | Clinical Summary ---
Author Organization [facility] D Address [address] [place] [phone] Care Team Providers Care Guide Visitor Name Role Phone Edda Adames MD Primary Care Provider Amor Steiner MD Unavailable Allergies Active Allergy Reactions Criticality Noted Date [...] Type 2 diabetes mellitus without complications ( [facility]) 06/19/2022 Positive cardiac stress test 06/19/2022 Hyperlipidemia, unspecified 06/19/2022 Morbid obesity with BMI of 40.0-44.9, adult 05/16 Assessment & Plan (07/23/2022 2:55 PM CDT): Unstable Caloric restriction and exercise for weight reduction Assessment & Plan (06/19/2022 11:40 AM CDT): Unstable Caloric restriction exercise for weight reduction Assessment & Plan (01/13/2022 11:53 AM SPANISH INSTRUCTOR): She would benefit from weight loss, but [...] (CMS/HCC) 10/04/2017 Coronary artery disease invo lving [place] coronary artery of [place] heart without angina pectoris 10/04/2017 Assessment & Plan (07/23/2022 2:54 PM CDT): Stable Continue aspirin/Plavix, Toprol-XL, sublingual nitro Assessment & Plan (06/22/2022 4:00 PM CDT): Stable Continue , aspirin, Lipitor, Plavix, insulin, lisinopril, metoprolol XL, sublingual nitro Assessment & Plan (01/13/2022 11:54 AM SPANISH INSTRUCTOR): Coronary disease is asymptomatic. Her electrocardiogram shows no change from baseline. She will follow-up in six months with Dr. Tomlinson, whom she knows from her coronary interventions. She understands that he will be retiring in a year, and he will refer her to another cool roofing installer in the practice at that time. Her [...] therapy. Assessment & Plan (10/24/2020 2:49 PM SPANISH INSTRUCTOR): Asymptomatic. Continue dual anti-platelet therapy. Assessment & Plan (04/22/2020 11:21 AM CDT): No symptoms of myocardial ischemia. Continue dual anti-platelet therapy. If surgery is recommended, she should have a pharmacologic stress test beforehand. Assessment & Plan (10/20/2019 12:03 PM SPANISH INSTRUCTOR): No symptoms of myocardial ischemia. She has [...] therapy. Assessment & Plan (01/16/2018 9:25 PM SPANISH INSTRUCTOR): She is not having any symptoms of [...] level. Assessment & Plan (11/01/2017 8:06 AM SPANISH INSTRUCTOR): No symptoms of myocardial ischemia. She is [...] XL Assessment & Plan (01/13/2022 11:51 AM SPANISH INSTRUCTOR): Blood pressure is controlled on her current regimen including amlodipine 5 mg daily, lisinopril 10 mg twice a day, and metoprolol succinate 37.5 mg daily. Continue these. Assessment & Plan (06/09/2021 12:07 PM CDT): Blood pressure is adequately controlled on current regimen. No change was made. Assessment & Plan (10/24/2020 2:49 PM SPANISH INSTRUCTOR): Not consistently ideally controlled. Will increase metoprolol to 37.5 mg daily. Assessment & Plan (04/22/2020 11:22 AM CDT): Blood pressure is adequately controlled on current regimen. No change was made. Assessment & Plan (10/20/2019 12:03 PM SPANISH INSTRUCTOR): Blood pressure is adequately controlled on current [...] altogether. Assessment & Plan (01/16/2018 9:23 PM SPANISH INSTRUCTOR): Blood pressure is adequately controlled on current regimen. No change was made. Assessment & Plan (11/01/2017 8:07 AM SPANISH INSTRUCTOR): Blood pressure is adequately controlled on current regimen. No change was made. Assessment & Plan (09/28/2017 2:37 PM SPANISH INSTRUCTOR): Blood pressure is adequately controlled on current regimen. No change was made. Hyperlipidemia 09/28/2017 Assessment & Plan (07/23/2022 2:54 PM CDT): Stable Continue Lipitor Assessment & Plan (06/19/2022 11:39 AM CDT): Stable Continue Lipitor Assessment & Plan (01/13/2022 11:52 AM SPANISH INSTRUCTOR): Continue atorvastatin 20 mg daily. Assessment & Plan (06/09/2021 12:07 PM CDT): On chronic lipid lowering therapy with good control. No changes made. Assessment & Plan (10/24/2020 2:50 PM SPANISH INSTRUCTOR): On chronic lipid lowering therapy with good control. No changes made. Assessment & Plan (04/22/2020 11:23 AM CDT): Lipids checked recently thru PCP were normal. Continue high-intensity statin therapy. Assessment & Plan (10/20/2019 12:03 PM SPANISH INSTRUCTOR): On chronic lipid lowering therapy with good control. No changes made. Assessment & Plan (02/20/2019 7:37 PM CDT): She is on high-intensity statin therapy. LDL is well controlled. Assessment & Plan (04/29/2018 5:03 PM CDT): On chronic lipid lowering therapy with good control. No changes made. Assessment & Plan (01/16/2018 9:25 PM SPANISH INSTRUCTOR): On chronic lipid lowering therapy with good control. No changes made. Assessment & Plan (11/01/2017 8:07 AM SPANISH INSTRUCTOR): On chronic lipid lowering therapy with good control. No changes made. Assessment & Plan (09/28/2017 2:38 PM SPANISH INSTRUCTOR): On chronic lipid-lowering therapy. Cerebrovascular accident 06/01/2017 Type 2 diabetes mellitus without complication (C MS/HCC) 06/01/2017 Assessment & Plan (06/19/2022 11:40 AM CDT): Stable Continue insulin, Lipitor Essential hypertension 06/01/2017 Hyperlipidemia 06/01/2017 Resolved Problems Problem Noted Date Diagnosed Date Resolved Date Abnormal nuclear stress test 09/28/2017 04/29/2018 Assessment & Plan (09/28/2017 2:37 PM SPANISH INSTRUCTOR): Small, mild, reversible inferior defect which could represent myocardial ischemia despite the absence of symptoms. She does have significant risk factors for coronary artery disease. I recommended cardiac catheterization, procedure with which she is familiar. She agrees to proceed. She understands that, if appropriate, coronary intervention would take place at the same time. Encounters Date Type Department Care Team Description 12/29/2024 11:15 AM SPANISH INSTRUCTOR Office Visit [facility] Medical [facility] Cardiology [address] [place] [address] [address] [address] Arun De Los Santos MD Hyperlipidemia, unspecified hyperlipidemia type (Primary Dx) 12/01/2024 Telephone [facility] Cardiology [address] [place] [address] [address] [address] Arun De Los Santos MD from Last [...] Comments Blood Pressure 120/70 12/29/2024 11:29 AM SPANISH INSTRUCTOR Pulse 80 12/29/2024 11:29 AM SPANISH INSTRUCTOR Temperature 36.7 C (98.1 F) 06/12/2013 4:03 PM CDT Respiratory Rate 18 10/04/2017 9:20 AM SPANISH INSTRUCTOR Oxygen Saturation 96% 12/29/2024 11:29 AM SPANISH INSTRUCTOR Inhaled Oxygen Concentration - - Weight 107 kg (236 lb) 12/29/2024 11:29 AM SPANISH INSTRUCTOR Height 160 cm (5' 3 ) 12/29/2024 11:29 AM SPANISH INSTRUCTOR Body Mass Index 41.81 12/29/2024 11:29 AM SPANISH INSTRUCTOR Plan of Treatment Health Maintenance Due Date [...] LIPID PANEL Routine 12/29/2024 11:3 0 AM SPANISH INSTRUCTOR Hyperlipidemia, unspecified hyperlipidemia type ALBUMIN CREATININE RATIO, URINE Routine 03/01/2020 EGFR Routine 11/13/2017 12:59 AM SPANISH INSTRUCTOR from Last 3 Months or Most Recently Relevant to Health Maintenance Results * POCT lipid panel (12/29/2024 11:30 AM SPANISH INSTRUCTOR) Cholesterol, POC 126 mg/dL HDL, POC 68 mg/dL Triglycerides, POC 73 mg/dL LDL Cholesterol POC 43 mg/dL Chol/HDL Ratio, POC 0.6 Non-HDL Cholesterol, POC 58 mg/dL Cholesterol Total, POC 126 mg/dL Capillary blood 12/29/2024 1 1:30 AM SPANISH INSTRUCTOR Arun De Los Santos MD POINT OF CARE TEST ORDERA BLES Final Result * Albumin Creatinine Ratio, Urine (03/01/2020) Urine Edda Adames MD LAB URINE ORDERABLES F inal Result * eGFR (11/13/2017 12:59 AM SPANISH INSTRUCTOR) eGFR 95 mL/min/1.7 3 m2 [facility] Comment: Interpretive Data Reference Interval Normal >/= 90 mL/min/1.73m2 Mildly decreased* 60 - 89 mL/min/1.73m2 Mildly to moderately decreased 45 - 59 mL/min/1.73m2 Moderately to severely decreased 30 - 44 mL/min/1.73m2 Severely decreased 15 - 29 mL/min/1.73m2 Kidney Failure < 15 mL/min/1.73m2 *Relative to young adult level If -[place] multiply value by 1.16. Estimated glomerular filtration [...] 2017. Blood specimen (specimen) 11/13/2017 12:59 AM SPANISH INSTRUCTOR 11/13/2017 1:44 AM SPANISH INSTRUCTOR Narrative [facility] - 11/13/2017 2:10 AM SPANISH INSTRUCTOR Hemal Tomlinson DO LAB BLOOD ORDERABLES Final Result [facility] [address] Department [place] [address] from Last 3 Months or Most Recently Relevant to Health Maintenance Insurance MEDICARE [facility] MEDICARE [employer] Care Teams Guide Visitor Relationship Specialty Start Date End Date Edda Adames MD PCP - General 09/02/17 Amor Steiner MD [address] [place] [address] [place] [address] Referring Physician Pain Management 01/04/25
--- OUTSIDE RECORDS SUMMARY | 2025-01-14 20:54 | XMS_ITS | Referral Summary ---
Author Organization [facility] D Address [address] [place] [id number] Care Team Providers Care Foundation Director Name Role Phone Edda Adames MD Primary Care Provider Amor Steiner MD Unavailable [phone] Encounters Date Type Department Care Team Description 12/29/2024 11:15 AM LAND SURVEYING SURVEY WORKER Office Visit [facility] Cardiology [address] [place] [address] [address] [place] [address] Arun De Los Santos MD Hyperlipidemia, unspecified hyperlipidemia type (Primary Dx) 12/01/2024 Telephone [facility] Cardiology [address] [place] [phone] Arun De Los Santos MD from [...] Type 2 diabetes mellitus without complications ( CMS/[facility]) 06/19/2022 Positive cardiac stress test 06/19/2022 Hyperlipidemia, unspecified 06/19/2022 Morbid obesity with BMI of 40.0-44.9, adult 05/16 Assessment & Plan (07/23/2022 2:55 PM CDT): Unstable Caloric restriction and exercise for weight reduction Assessment & Plan (06/19/2022 11:40 AM CDT): Unstable Caloric restriction exercise for weight reduction Assessment & Plan (01/13/2022 11:53 AM LAND SURVEYING SURVEY WORKER): She would benefit from weight loss, but [...] to 5 mg daily. Aortic ectasia, thoracic ([facility]/HCC) 10/04/2017 Coronary artery disease invo lving resighini coronary artery of resighini heart without angina pectoris 10/04/2017 Assessment & Plan (07/23/2022 2:54 PM CDT): Stable Continue aspirin/Plavix, Toprol-XL, sublingual nitro Assessment & Plan (06/22/2022 4:00 PM CDT): Stable Continue , aspirin, Lipitor, Plavix, insulin, lisinopril, metoprolol XL, sublingual nitro Assessment & Plan (01/13/2022 11:54 AM LAND SURVEYING SURVEY WORKER): Coronary disease is asymptomatic. Her electrocardiogram shows no change from baseline. She will follow-up in six months with Dr. Bushra, whom she knows from her coronary interventions. She understands that he will be retiring in a year, and he will refer her to another travel physical therapist in the practice at that time. [...] therapy. Assessment & Plan (10/24/2020 2:49 PM LAND SURVEYING SURVEY WORKER): Asymptomatic. Continue dual anti-platelet therapy. Assessment & Plan (04/22/2020 11:21 AM CDT): No symptoms of myocardial ischemia. Continue dual anti-platelet therapy. If surgery is recommended, she should have a pharmacologic stress test beforehand. Assessment & Plan (10/20/2019 12:03 PM LAND SURVEYING SURVEY WORKER): No symptoms of myocardial ischemia. She has [...] therapy. Assessment & Plan (01/16/2018 9:25 PM LAND SURVEYING SURVEY WORKER): She is not having any symptoms of [...] level. Assessment & Plan (11/01/2017 8:06 AM LAND SURVEYING SURVEY WORKER): No symptoms of myocardial ischemia. She is [...] XL Assessment & Plan (01/13/2022 11:51 AM LAND SURVEYING SURVEY WORKER): Blood pressure is controlled on her current regimen including amlodipine 5 mg daily, lisinopril 10 mg twice a day, and metoprolol succinate 37.5 mg daily. Continue these. Assessment & Plan (06/09/2021 12:07 PM CDT): Blood pressure is adequately controlled on current regimen. No change was made. Assessment & Plan (10/24/2020 2:49 PM LAND SURVEYING SURVEY WORKER): Not consistently ideally controlled. Will increase metoprolol to 37.5 mg daily. Assessment & Plan (04/22/2020 11:22 AM CDT): Blood pressure is adequately controlled on current regimen. No change was made. Assessment & Plan (10/20/2019 12:03 PM LAND SURVEYING SURVEY WORKER): Blood pressure is adequately controlled on current [...] altogether. Assessment & Plan (01/16/2018 9:23 PM LAND SURVEYING SURVEY WORKER): Blood pressure is adequately controlled on current regimen. No change was made. Assessment & Plan (11/01/2017 8:07 AM LAND SURVEYING SURVEY WORKER): Blood pressure is adequately controlled on current regimen. No change was made. Assessment & Plan (09/28/2017 2:37 PM LAND SURVEYING SURVEY WORKER): Blood pressure is adequately controlled on current regimen. No change was made. Hyperlipidemia 09/28/2017 Assessment & Plan (07/23/2022 2:54 PM CDT): Stable Continue Lipitor Assessment & Plan (06/19/2022 11:39 AM CDT): Stable Continue Lipitor Assessment & Plan (01/13/2022 11:52 AM LAND SURVEYING SURVEY WORKER): Continue atorvastatin 20 mg daily. Assessment & Plan (06/09/2021 12:07 PM CDT): On chronic lipid lowering therapy with good control. No changes made. Assessment & Plan (10/24/2020 2:50 PM LAND SURVEYING SURVEY WORKER): On chronic lipid lowering therapy with good control. No changes made. Assessment & Plan (04/22/2020 11:23 AM CDT): Lipids checked recently thru PCP were normal. Continue high-intensity statin therapy. Assessment & Plan (10/20/2019 12:03 PM LAND SURVEYING SURVEY WORKER): On chronic lipid lowering therapy with good control. No changes made. Assessment & Plan (02/20/2019 7:37 PM CDT): She is on high-intensity statin therapy. LDL is well controlled. Assessment & Plan (04/29/2018 5:03 PM CDT): On chronic lipid lowering therapy with good control. No changes made. Assessment & Plan (01/16/2018 9:25 PM LAND SURVEYING SURVEY WORKER): On chronic lipid lowering therapy with good control. No changes made. Assessment & Plan (11/01/2017 8:07 AM LAND SURVEYING SURVEY WORKER): On chronic lipid lowering therapy with good control. No changes made. Assessment & Plan (09/28/2017 2:38 PM LAND SURVEYING SURVEY WORKER): On chronic lipid-lowering therapy. Cerebrovascular accident 06/01/2017 Type 2 diabetes mellitus without complication ([facility]) 06/01/2017 Assessment & Plan (06/19/2022 11:40 AM CDT): Stable Continue insulin, Lipitor Essential hypertension 06/01/2017 Hyperlipidemia 06/01/2017 Resolved Problems Problem Noted Date Diagnosed Date Resolved Date Abnormal nuclear stress test 09/28/2017 04/29/2018 Assessment & Plan (09/28/2017 2:37 PM LAND SURVEYING SURVEY WORKER): Small, mild, reversible inferior defect which could [...] Comments Blood Pressure 120/70 12/29/2024 11:29 AM LAND SURVEYING SURVEY WORKER Pulse 80 12/29/2024 11:29 AM LAND SURVEYING SURVEY WORKER Temperature 36.7 C (98.1 F) 06/12/2013 4:03 PM CDT Respiratory Rate 18 10/04/2017 9:20 AM LAND SURVEYING SURVEY WORKER Oxygen Saturation 96% 12/29/2024 11:29 AM LAND SURVEYING SURVEY WORKER Inhaled Oxygen Concentration - - Weight 107 kg (236 lb) 12/29/2024 11:29 AM LAND SURVEYING SURVEY WORKER Height 160 cm (5' 3 ) 12/29/2024 11:29 AM LAND SURVEYING SURVEY WORKER Body Mass Index 41.81 12/29/2024 11:29 AM LAND SURVEYING SURVEY WORKER Plan of Treatment Not on file Procedures Procedure Name Priority Date/Time Associated Diagnosis Comments POCT LIPID PANEL Routine 12/29/2024 11:3 0 AM LAND SURVEYING SURVEY WORKER Hyperlipidemia, unspecified hyperlipidemia type ALBUMIN CREATININE RATIO, URINE Routine 03/01/2020 EGFR Routine 11/13/2017 12:59 AM LAND SURVEYING SURVEY WORKER from Last 3 Months or Most Recently Relevant to Health Maintenance Results * POCT lipid panel (12/29/2024 11:30 AM LAND SURVEYING SURVEY WORKER) Cholesterol, POC 126 mg/dL HDL, POC 68 mg/dL Triglycerides, POC 73 mg/dL LDL Cholesterol POC 43 mg/dL Chol/HDL Ratio, POC 0.6 Non-HDL Cholesterol, POC 58 mg/dL Cholesterol Total, POC 126 mg/dL Capillary blood 12/29/2024 1 1:30 AM LAND SURVEYING SURVEY WORKER us Arun De Los Santos MD POINT OF CARE TEST ORDERA BLES Final Result * Albumin Creatinine Ratio, Urine (03/01/2020) Urine us Edda Adames MD LAB URINE ORDERABLES F inal Result * eGFR (11/13/2017 12:59 AM LAND SURVEYING SURVEY WORKER) eGFR 95 mL/min/1.7 3 m2 [facility] Comment: Interpretive Data Reference Interval Normal >/= 90 mL/min/1.73m2 Mildly decreased* 60 - 89 mL/min/1.73m2 Mildly to moderately decreased 45 - 59 mL/min/1.73m2 Moderately to severely decreased 30 - 44 mL/min/1.73m2 Severely decreased 15 - 29 mL/min/1.73m2 Kidney Failure < 15 mL/min/1.73m2 *Relative to young adult level If -Vietnamese multiply value by 1.16. Estimated glomerular filtration [...] 2017. Blood specimen (specimen) 11/13/2017 12:59 AM LAND SURVEYING SURVEY WORKER 11/13/2017 1:44 AM LAND SURVEYING SURVEY WORKER Narrative [facility] - 11/13/2017 2:10 AM LAND SURVEYING SURVEY WORKER Hemal Tomlinson DO LAB BLOOD ORDERABLES Final Result [facility] [address] [place] [address] from Last 3 Months or Most Recently Relevant to Health Maintenance Insurance MEDICARE [facility] MEDICARE [facility] Care Teams Foundation Director Relationship Specialty Start Date End Date Edda Adames MD PCP - General 09/02/17 Amor Steiner MD [address] [place] [address] [place] [address] Referring Physician Pain Management 01/04/25
--- OUTSIDE RECORDS SUMMARY | 2025-01-14 20:54 | XMS_ITS | Continuity of Care Document ---
Author Organization [facility] Address [address] [place] [address] Phone Care Team Providers Care Project Management Instructor Name Role Phone Arun Raines MD Unavailable Unavailable Advance Directives Directive Yes / No Effective Date File Name No Information Encounters Encounter Description Practice Location Reason(s) For Visit Diagnoses Date Provider Providers Copied on Encounter [facility], [address], [place], [place], [id number], tel:[phone] [facility] No Information Yanna Dias. [address], [place], [id number], . tel:[phone] Referring Provider: Chacorta Gray, [address] [facility] [address], [place], [address]. tel:[phone] Family History Family Member Type Diagnosis Age At Onset No Information Payers Payer name Insurance type Covered libertarian ID Authoriza tion(s) BCBS INACTIVE OUT OF STATE [id number] Social History Type Description Quantity Date Captured [...]
--- OUTSIDE RECORDS SUMMARY | 2025-01-14 20:54 | XMS_ITS | Continuity of Care Document ---
Author Organization [facility] Address [address] [place] [address] Phone Care Team Providers Care Retail Sales Clerk Name Role Phone Farooq Xie Unavailable Unavailable [...] Diagnoses Date Provider Providers [facility]ied on [facility], [address], [place], [place], [id number], [place] tel:[phone] [facility] No Information Oct-2 6-200 9 Anne-Marie Trivedi. [address] [place], [address], [place]. tel:[phone] Referring Provider: Farooq Montana, [address] [place], [address]. tel:[phone] [facility], [address], [place], [place], [id number], [place] tel:[phone] [facility] No Information Oct-1 2-200 9 Anne-Marie Trivedi. [address] [place], [address], [place]. tel:[phone] Referring Provider: Farooq Montana, [address] [place], [address]. tel:[phone] [facility], [address] [place] [address] [address], [place], [place], [id number], [place] tel:[phone] [facility] No Information Sep-1 4-200 9 Anne-Marie Trivedi. [address] [place], [address], [place]. tel:[phone] Referring Provider: Farooq Montana, [address] [place], [address]. tel:[phone] [facility], [address] [place] [address] [address], [place], [place], [id number], [place] tel:[phone] [facility] No Information Aug-3 1-200 9 Anne-Marie Trivedi. [address] [place], [address], [place]. tel:[phone] [facility], [address] [place] [address] [address], [place], [place], [id number], [place] tel:[phone] [facility] No Information Aug-2 4-200 9 Anne-Marie Trivedi. [address] [place], [address], [place]. tel:[phone] Referring Provider: Farooq Montana, [address] [place] [address], [address]. tel:[phone] Office Consultation [facility], [address] [place] [address] [address], [place], [place], [id number], tel:[phone] [facility] No Information 9 Anne-Marie Trivedi. [address] [place], [place], [facility], . tel:[phone] Referring Provider: Brandy Luna, [address], [place], [place], [facility]. tel:[phone] [facility], [address], [place], [place], [id number], tel:[phone] [facility] No Information 9 Beverly Nava. [address] [facility] , [address], [place], [address], . tel:[phone] Family History Family Member Type Diagnosis Age At Onset No Information Payers Payer name Insurance type Covered republican ID Authoriza tion(s) No Information Social History [...]
--- OUTSIDE RECORDS SUMMARY | 2025-01-14 20:54 | XMS_ITS | Clinical Summary ---
Author Organization [facility] Address [address] [place] [address] Care Team Providers Care Conference Assistant Name Role Phone Eyad Spears MD Primary Care Provider [phone] Social History Tobacco Use Types Packs/Day Years [...] patient's age to complete this topic Insurance [facility] Advance Directives Documents on File Type Date Recorded Patient Family Support Specialist Expl anation Advance Directives and Livin g Will 05/21/2017 POWER OF IT APPLICATION SUPPORT ANALYST Care Teams Conference Assistant Relationship Specialty Start Date End Date Eyad Spears MD [address] [place], [place] [id number] PCP - General 05/21/17
[2025-01-14] MEDS: SODIUM CHLORIDE 0.9% IV 1,000 ML 999 ML IV CONT (22:16)
[2025-01-14] MEDS: PROCHLORPERAZINE EDISYLATE 10 MG/2 ML VIAL IV PUSH (22:19)
[2025-01-14] MEDS: diphenhydrAMINE HCl INJ 50 MG/ML VIAL 25 MG IV PUSH (22:19)
[2025-01-14 22:22] LABS: Basophils Percent Auto 0.5 % (0.2-1.2); Eosinophils Absolute Auto 0.1 K/mm3 (0-0.3); Eosinophils Percent Auto 0.9 % (0-4.4); Hematocrit 39.9 % (37.0-47.0); Hemoglobin 12.6 g/dL (12.0-15.0); Immature Granulocyte Absolute 0.04 K/mm3 (0.00-0.031); Immature Granulocyte Percent A 0.5 % (0-0.5); Lymphocytes Absolute Auto 0.77 K/mm3 (0.9-3.2); Lymphocytes Percent Auto 9.8 % (18.3-44.2); Mean Corpuscular HGB Conc 31.6 g/dl (32-36); Mean Corpuscular Hemoglobin 30.7 pg (26-34); Mean Corpuscular Volume 97.3 fl (80-100); Mean Platelet Volume 9.3 fl (7.4-10.4); Monocytes Absolute Auto 0.6 K/mm3 (0.1-0.6); Monocytes Percent Auto 7.4 % (2.6-8.5); Neutrophils Absolute Auto 6.4 K/mm3 (1.3-6.7); Neutrophils Percent Auto 80.9 % (45.5-73.1); Platelet Count Result 305 k/mm3 (150-375); Red Cell Distribution Width 14.9 % (11.5-14.5); White Blood Count 7.9 K/mm3 (4.5-10.0)
[2025-01-14 22:34] LABS: Lactic Acid Reflex 1.8 mmol/L (0.7-2.0)
[2025-01-14 22:36] LABS: Alanine Aminotransferase 25 U/L (6-35); Alkaline Phosphatase 115 U/L (38-126); Anion Gap 12 mmol/L (4-12); Aspartate Amino Transferase 21 U/L (14-36); Bilirubin,Total 0.7 mg/dL (0.2-1.3); Blood Urea Nitrogen 41 mg/dL (7-17); Calcium 10.9 mg/dL (8.4-10.2); Carbon Dioxide 32 mmol/L (22-30); Chloride 97 mmol/L (98-107); Estimated CRCL calculation 51 ml/min; Estimated Glomerular Filt Rate 52; Glucose 245 mg/dL (65-110); Lipase 47 U/L (23-300); Magnesium 2.2 mg/dL (1.6-2.3); Potassium 5.1 mmol/L (3.4-5.0); Sodium 141 mmol/L (137-145)
[2025-01-14 22:47] LABS: Troponin I < 0.012 ng/mL (0.000-0.034)
[2025-01-14 22:58] LABS: Influenza A QL RT-PCR Negative (Negative); Influenza B QL RT-PCR Negative (Negative); RSV RNA, RT-PCR Negative (Negative); SARS-CoV-2 RNA PCR Negative (Negative)
--- NOTE | 2025-01-14 23:21 | PC.NURSE ---
care and report given to Rosetta, RN. all questions answered.
--- NOTE | 2025-01-14 23:27 | PC.NURSE ---
Report received from VARUN Amaya. Assumed care of patient at this time.
[2025-01-14 23:35] LABS: Add Urine Microscopic? YES; Appearance Urine Turbid (Clear); Bilirubin Urine Negative (Negative); Blood Urine 1+ (Negative); Color Urine Yellow (Yellow); Glucose Urine UA 3+ mg/dL (Negative); Ketones Urine 2+ mg/dL (Negative); Leukocyte Esterase Ur 2+ LEU/UL (Negative); Need Manual Microscopic Reviewed; Nitrate Urine Negative (Negative); Non Pathogenic Casts 0-2; Protein Urine 1+ mg/dL (Negative); Specific Grav Ur 1.029 (1.001-1.035); Squamous Epithelial Cell Urine Occasional /hpf (Few); Urobilinogen Urine 0.2 mg/dL (<2.0); WBC Clumps Urine Present /HPF; WBC Urine >100 /hpf (0-3)
[2025-01-14 23:44] LABS: Bacteria Urine 1+ /hpf
[2025-01-15] VITALS (16 sets, daily range): BP systolic 110–151; BP diastolic 48–77; PULSE 82–107; RESP 14–28; TEMP 36.5–37.1; O2SAT 94–100; BMI 41.5
--- NOTE | 2025-01-15 01:34 | PC.NURSE ---
Patient states nausea is still present. ERP notified. Patient given mouth swab.
[2025-01-15] MEDS: ONDANSETRON INJ 4 MG/2 ML VIAL IV PUSH ×2 (01:48→15:25)
--- NOTE | 2025-01-15 02:46 | ED.GENADULT ---
HPI - General Adult General Chief complaint: Nausea/Vomiting/Diarrhea Stated complaint: nausea/chills Time Seen by Provider: 01/14/25 20:47 History of Present Illness HPI narrative: Patient is a 69-year-old female who presents emergency department chief complaint of nausea weakness and itching all over patient had a pain pump placed on the and is on a very low dose of Dilaudid the patient reports he has been having nausea and was not able to keep anything down reports that she is very weak and not able to care for herself at home Related Data Home Medications ?Medication ?Instructions ?Recorded ?Confirmed ?Last Taken ?Type aspirin 81 mg tablet,delayed 81 mg PO DAILY 12/26/19 01/09/25 01/03/25 History release (Aspir-) loratadine 10 mg tablet (Claritin) 10 mg PO DAILY 02/29/20 01/09/25 01/08/25 History mecobalamin (vitamin B12) 1,000 2,000 mcg PO DAILY 02/29/20 01/09/25 01/06/25 History mcg chewable tablet hydrochlorothiazide 12.5 mg capsule 12.5 mg PO DAILY 10/14/22 01/09/25 01/08/25 History cholecalciferol (vitamin D3) 25 25 mcg PO DAILY 10/26/23 01/09/25 01/06/25 History mcg (1,000 unit) capsule empagliflozin 25 mg tablet 25 mg PO DAILY 11/18/23 01/09/25 01/08/25 History (Jardiance) Allergies Allergy/AdvReac Type Severity Reaction Status Date / Time morphine AdvReac Severe Nausea and Verified 01/14/25 19:38 Vomiting Penicillins AdvReac Mild yeast Verified 01/14/25 19:38 infection metformin AdvReac Unknown Nausea and Verified 01/14/25 19:38 Vomiting Review of Systems Review of Systems: A 10 system review of systems was completed on the patient and is negative except for what is stated in the HPI. Nursing and ancillary documentation was reviewed. FORMERLY [facility] Past Medical History Medical History Tinnitus Dizziness Hearing loss in right ear Chronic right shoulder pain Peripheral neuropathy Type 2 diabetes mellitus with diabetic neuropathy Stroke may 2017 Cataract 2014 History of kidney stones 2013 CAD in [place] artery Chronic low back pain Essential (primary) hypertension History of stroke Surgical History Surgical History S/P insertion of spinal cord stimulator History of lumbar laminectomy (~12/2021) Dr Encarnacion at [facility], 1928[facility]1983 History of carpal tunnel surgery of right wrist Hx of decompressive lumbar laminectomy (~01/26/22) L5-S1 decompressive laminectomy with fusion - Dr Encarnacion at [facility] History of coronary artery stent placement 10/2017 x3 times Social History Social History Social History: Patient lives with her boyfriend in [place]. 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 Caffeine-occasionally Smoking status: Never smoker Second hand tobacco smoke exposure: Yes Alcohol intake: never Alcohol use details: rarely Substance use: never Substance use type: does not use Do You Feel Safe in your Home?: Yes Lack of Transportation: No Lack of Food: Never True Current Housing: I Have Housing Concerned About Future Housing: No Difficulty Paying Gas/Electric Bills: No Difficulty Paying for Meds: No Currently Unemployed: No Education: High School Diploma/GED Difficulty w/ Childcare or Family Care: No Living arrangements: with family Additional living arrangements comments: Occupation/Education: retired Gender identity (if verbalized by the patient): Female Sexual Orientation (if Verbalized by the Patient): Straight or Heterosexual Spiritual care concerns: No Agree to blood products: Yes Exam Narrative: GENERAL: Well-appearing, well-nourished, and in no acute distress. HEAD: Normocephalic, atraumatic. EYES: PERRLA and EOMI. ENT: Nares clear, no rhinorrhea or epistaxis. Mucous membranes moist. NECK: Supple. CHEST: Clear to auscultation. No respiratory distress. HEART: Regular rate and rhythm. No murmur heard. Normal peripheral pulses. ABDOMEN: Soft, nontender, nondistended, normal active bowel sounds. Incision site is intact no redness EXTREMITIES: Normal range of motion. No edema. SKIN: Warm, dry, no rash. NEURO: No focal deficits. Alert and oriented x3. PSYCH: Normal mood and affect. Course Vital Signs Vital signs: Vital Signs Temperature 36.6 C 01/14/25 19:37 Pulse Rate 87 01/14/25 19:37 Respiratory Rate 19 01/14/25 19:37 Blood Pressure 129/67 01/14/25 19:37 Pulse Oximetry 100 01/14/25 19:37 Temperature 36.6 C 01/14/25 19:37 Pulse Rate 105 H 01/15/25 01:15 Respiratory Rate 23 H 01/15/25 01:15 Blood Pressure 111/77 01/15/25 00:17 Pulse Oximetry 94 01/15/25 02:15 Medical Decision Making MDM Narrative Medical decision making narrative: Differential diagnosis includes UTI, dehydration, electrolyte abnormality CT scan of the abdomen pelvis was obtained that showed no significant abnormality The patient was found to have a UTI Patient has had multiple doses of nausea medicine in the emergency department initial plan was to discharge the patient on oral antibiotics and antiemetics the patient reports he is unable to care for herself the case was discussed with the hospitalist for admission for observation Vital Signs Vital Signs: Vital Signs Temperature 36.6 C 01/14/25 19:37 Pulse Rate 87 01/14/25 19:37 Respiratory Rate 19 01/14/25 19:37 Blood Pressure 129/67 01/14/25 19:37 Pulse Oximetry 100 01/14/25 19:37 Temperature 36.6 C 01/14/25 19:37 Pulse Rate 105 H 01/15/25 01:15 Respiratory Rate 23 H 01/15/25 01:15 Blood Pressure 111/77 01/15/25 00:17 Pulse Oximetry 94 01/15/25 02:15 Lab Data 01/14/25 22:12 01/14/25 22:12 Labs: Lab Results 01/14/25 01/14/25 Range/Units 22:12 23:16 WBC 7.9 (4.5-10.0) K/mm3 RBC 4.10 L (4.2-5.4) M/mm3 Hgb 12.6 (12.0-15.0) g/dL Hct 39.9 (37.0-47.0) % MCV 97.3 (80-100) fl MCH 30.7 (26-34) pg MCHC 31.6 L (32-36) g/dl RDW 14.9 H (11.5-14.5) % Plt Count 305 (150-375) k/mm3 MPV 9.3 (7.4-10.4) fl Immature Gran % (Auto) 0.5 (0-0.5) % Neut % (Auto) 80.9 H (45.5-73.1) % Lymph % (Auto) 9.8 L (18.3-44.2) % Cobb % (Auto) 7.4 (2.6-8.5) % Eos % (Auto) 0.9 (0-4.4) % Baso % (Auto) 0.5 (0.2-1.2) % Lymph # (Auto) 0.77 L (0.9-3.2) K/mm3 Cobb # (Auto) 0.6 (0.1-0.6) K/mm3 Eos # (Auto) 0.1 (0-0.3) K/mm3 Baso # (Auto) 0.0 (0.0-0.1) K/mm3 Abs Immat Gran (auto) 0.04 H (0.00-0.031) K/mm3 Absolute Neuts (auto) 6.4 (1.3-6.7) K/mm3 Absolute Nucleated RBC 0.000 (0.0-0.012) K/mm3 Nucleated RBC % 0.0 (0.0-0.2) % Sodium 141 (137-145) mmol/L Potassium 5.1 H (3.4-5.0) mmol/L Chloride 97 L (98-107) mmol/L Carbon Dioxide 32 H (22-30) mmol/L Anion Gap 12 (4-12) mmol/L BUN 41 H (7-17) mg/dL Creatinine 1.06 H (0.7-1.0) mg/dL Estim Creat Clear Calc 51 ml/min Estimated GFR 52 L (59 - ) Glucose 245 H (65-110) mg/dL Lactic Acid 1.8 (0.7-2.0) mmol/L Calcium 10.9 H (8.4-10.2) mg/dL Magnesium 2.2 (1.6-2.3) mg/dL Total Bilirubin 0.7 (0.2-1.3) mg/dL AST 21 (14-36) U/L ALT 25 (6-35) U/L Alkaline Phosphatase 115 (38-126) U/L Troponin I < 0.012 (0.000-0.034) ng/mL Total Protein 8.0 (6.3-8.2) g/dL Albumin 4.0 (3.5-5.1) g/dL Lipase 47 (23-300) U/L Urine Color Yellow (Yellow) Urine Appearance Turbid H (Clear) Urine pH 5.0 (5.0-9.0) Ur Specific [place] 1.029 (1.001-1.035) Urine Protein 1+ H (Negative) mg/dL Urine Glucose (UA) 3+ H (Negative) mg/dL Urine Ketones 2+ H (Negative) mg/dL Ur Blood (Man) 1+ H (Negative) Urine Nitrate Negative (Negative) Urine Bilirubin Negative (Negative) Urine Urobilinogen 0.2 (<2.0) mg/dL Add Ur Microanalysis Reviewed Leukocyte Esterase Rfl 2+ H (Negative) CAITLNI/UL Urine RBC 6-10 H (0-2) /hpf Urine WBC >100 H (0-3) /hpf Urine WBC Clumps Present H (None) /HPF Ur Squamous Epith Cells Occasional (Few) /hpf Urine Bacteria 1+ /hpf Urine Casts 0-2 Influenza A (RT-PCR) Negative (Negative) Influenza B (RT-PCR) Negative (Negative) RSV (RT-PCR) Negative (Negative) SARS-CoV-2 RNA (RT-PCR) Negative (Negative) Discharge Plan Discharge Clinical Impression: Nausea & vomiting, Acute UTI, Generalized weakness Patient Disposition: Still a Patient Condition: Stable Instructions: Antibiotic Form Patient Language: Mongolian Prescriptions: No Action mecobalamin (vitamin B12) 1,000 mcg tablet,chewable 2,000 mcg PO DAILY loratadine [Claritin] 10 mg tablet 10 mg PO DAILY Ozempic 2 mg/dose (8 mg/3 mL) pen injector 2 mg subcut WEEKLY Qty: 9 5RF Rx Instructions: MONDAYS (DME) FreeStyle [place] 2 [place] Misc See Rx Instructions .Route Qty: 1 0RF Rx Instructions: As directed (DME) FreeStyle [place] 2 Sensor Kit See Rx Instructions .Route Qty: 2 3RF Rx Instructions: every 2 weeks cholecalciferol (vitamin D3) 25 mcg (1,000 unit) capsule 25 mcg PO DAILY glucose 4 gram tablet,chewable 16 g PO Q15M PRN (Reason: hypoglycemia) Qty: 360 0RF Rx Instructions: until symptoms of low blood sugar are controlled naloxone 4 mg/actuation spray,non-aerosol 4 mg intranasal Q2-3M PRN (Reason: opioid overdose) Qty: 2 2RF Rx Instructions: spray 1 dose into ONE nostril and call 911; repeat every 2-3 minutes until responsive, alternating nostrils w each dose until emergency medical help arrives hydrochlorothiazide 12.5 mg capsule 12.5 mg PO DAILY Patient Comments: QAM aspirin [Aspir-81] 81 mg tablet,delayed release (DR/EC) 81 mg PO DAILY Rx Instructions: take 1 tablet by oral route every day insulin lispro protamin-lispro [Humalog Mix 75-25 KwikPen] 100 unit/mL (75-25) insulin pen 32 unit subcut BID Qty: 90 1RF clopidogrel 75 mg tablet 75 mg PO DAILY Qty: 90 1RF metoprolol succinate 25 mg tablet extended release 24 hr 37.5 mg PO DAILY Qty: 135 1RF Patient Comments: QAM gabapentin 300 mg capsule See Rx Instructions .ROUTE .COMPLEX Qty: 270 1RF Dose Instruction: TAKE 1 CAPSULE BY MOUTH TWICE DAILY Rx Instructions: TAKE 1 CAPSULE BY MOUTH in the am and 2 capsules in the pm. omeprazole 20 mg capsule,delayed release(DR/EC) 20 mg PO DAILY Qty: 90 1RF lisinopril 10 mg tablet 10 mg PO BID Qty: 180 1RF atorvastatin 20 mg tablet 20 mg PO QHS Qty: 90 1RF hydrocodone-acetaminophen 5-325 mg tablet 1 tablet PO Q8H PRN (Reason: pain) Qty: 20 0RF Rx Instructions: take one tab po prn severe pain every 6-8 hours, max 3/day ondansetron 8 mg tablet,disintegrating 8 mg PO TID MDD 3 5 Days Qty: 15 0RF Rx Instructions: dissolve one tablet under tongue every 6-8 hours as needed for nausea, max 3/day. Jardiance 25 mg tablet 25 mg PO DAILY Follow-up/Referrals: Wilma Adames MD [Primary Care Provider] - Time of Disposition: 02:49
--- NOTE | 2025-01-15 03:31 | ADMGEN ---
This patient, Petra Paula, was admitted to 2 Medical Room 255-. Patient/family oriented to hospital policies and general routines including ID bracelet, bed and alarms, visiting hours, pain management, procedures, bathroom and other care routines, personal items, smoking policy, room service/diet, and visiting hours. Information on how to activate the Rapid Response Team has been discussed. Patient/Family are encouraged to report perceived risks to care and to ask questions if they do not understand what they are told or what they should do.
[2025-01-15] MEDS: SODIUM CHLORIDE 0.9% IV 1,000 ML 125 ML IV CONT ×2 (03:33→20:52)
[2025-01-15] MEDS: ACETAMINOPHEN 325 MG TABLET 650 MG PO (04:03)
[2025-01-15] MEDS: FAMOTIDINE 20 MG/2 ML VIAL IV PUSH (04:42)
--- NOTE | 2025-01-15 08:00 | P.HP_ITS ---
H&P: HPI History of Present Illness Date/Time: 01/15/25 08:00 Chief Complaint: Nausea vomiting diarrhea Narrative: 61-year-old female with history of chronic pain with pain pump placed on 01/09/25, diabetes, history of stroke, and hypertension presents the hospital with nausea vomiting and weakness. Patient states that she recently had pain pump placed for chronic lower back pain. Since then she has a had a hard time eating. She also complains of severe pruritus and weakness since starting the narcotic for the pain pump. Patient states that due to her severe weakness she was having difficulties walking so she came to the hospital. On admission patient was found to have a UTI and dehydration likely along with narcotics causing her weakness. Her pain is controlled with her pain pump, she sees a neurosurgeon Dr. Patiño. He states that he can attend on the pain pump if needed. Patient is awake and alert with some improvement in mobility this morning. Patient still extremely weak this morning will have PT OT see her. Patient's pain is well controlled with her pain pump, her symptoms have improved without adjustments to the pain pump. Will continue with IV antibiotics for UTI and hydration. Review of Systems Review of Systems: 12 systems were reviewed and are negativ e except for as per HPI. FOR[facility]LY [facility] Past Medical History Medical History Tinnitus Dizziness Hearing loss in right ear Chronic right shoulder pain Peripheral neuropathy Type 2 diabetes mellitus with diabetic neuropathy Stroke may 2017 Cataract 2014 History of kidney stones 2013 CAD in [place] artery Chronic low back pain Essential (primary) hypertension History of stroke Surgical History Surgical History S/P insertion of spinal cord stimulator History of lumbar laminectomy (~12/2021) Dr Encarnacion at [facility] History of carpal tunnel surgery of right wrist Hx of decompressive lumbar laminectomy (~01/26/22) L5-S1 decompressive laminectomy with fusion - Dr Encarnacion at [facility] History of coronary artery stent placement 10/2017 x3 times Family History Family History Mother Cerebrovascular accident Father Diabetes mellitus Social History Social History Social History: Patient lives with her boyfriend in [place]. 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 Caffeine-occasionally Smoking status: Never smoker Second hand tobacco smoke exposure: Yes Alcohol intake: never Alcohol use details: rarely Substance use: never Substance use type: does not use Do You Feel Safe in your Home?: Yes Lack of Transportation: No Lack of Food: Never True Current Housing: I Have Housing Concerned About Future Housing: No Difficulty Paying Gas/Electric Bills: No Difficulty Paying for Meds: No Currently Unemployed: No Education: High School Diploma/GED Difficulty w/ Childcare or Family Care: No Living arrangements: with family Additional living arrangements comments: Occupation/Education: retired Gender identity (if verbalized by the patient): Female Sexual Orientation (if Verbalized by the Patient): Straight or Heterosexual Spiritual care concerns: No Agree to blood products: Yes Meds Home Medications and Allergies Home Medications ?Medication ?Instructions ?Recorded ?Confirmed ?Type aspirin 81 mg tablet,delayed 81 mg PO DAILY 12/26/19 01/15/25 History release (Aspir-) loratadine 10 mg tablet (Claritin) 10 mg PO DAILY 02/29/20 01/15/25 History mecobalamin (vitamin B12) 1,000 2,000 mcg PO DAILY 02/29/20 01/15/25 History mcg chewable tablet hydrochlorothiazide 12.5 mg capsule 12.5 mg PO DAILY 10/14/22 01/15/25 History flash glucose scanning reader #1 ea 01/28/23 01/15/25 Rx (FreeStyle [place] 2 [place]) flash glucose sensor (FreeStyle #2 ea 01/28/23 01/15/25 Rx [place]ille 2 Sensor kit) semaglutide 2 mg/dose (8 mg/3 mL) 2 mg (0.75 mL) subcut WEEKLY #9 mL 06/03/23 01/15/25 Rx subcutaneous pen injector (Ozempic) cholecalciferol (vitamin D3) 25 25 mcg PO DAILY 10/26/23 01/15/25 History mcg (1,000 unit) capsule empagliflozin 25 mg tablet 25 mg PO DAILY 11/18/23 01/15/25 History (Jardiance) insulin lispro protamine-lispro 32 unit (0.32 mL) subcut BID #90 mL 08/02/24 01/15/25 Rx 100 unit/mL (75-25) subcutaneous pen (Humalog Mix 75-25 KwikPen) clopidogrel 75 mg tablet 75 mg PO DAILY #90 tabs 08/04/24 01/15/25 Rx naloxone 4 mg/actuation nasal spray 4 mg intranasal Q2-3M PRN opioid 08/21/24 01/15/25 Rx overdose #2 ea gabapentin 300 mg capsule See Rx Instructions .Route 09/07/24 01/15/25 Rx .COMPLEX #270 caps metoprolol succinate 25 mg 37.5 mg (1.5 x 25 mg) PO DAILY 09/07/24 01/15/25 Rx tablet,extended release 24 hr #135 tabs omeprazole 20 mg capsule,delayed 20 mg PO DAILY #90 caps 09/26/24 01/15/25 Rx release lisinopril 10 mg tablet 10 mg PO BID #180 tabs 10/25/24 01/15/25 Rx atorvastatin 20 mg tablet 20 mg PO QHS #90 tabs 12/06/24 01/15/25 Rx glucose 4 gram chewable tablet 16 g (4 x 4 gram) PO Q15M PRN 12/28/24 01/15/25 Rx hypoglycemia #360 tabs hydrocodone 5 mg-acetaminophen 325 1 tablet PO Q8H PRN pain #20 tabs 01/09/25 01/15/25 Rx mg tablet ondansetron 8 mg disintegrating 8 mg PO TID nausea 5 days #15 tabs 01/12/25 01/15/25 Rx tablet Allergies Allergy/AdvReac Type Severity Reaction Status Date / Time morphine AdvReac Severe Nausea and Verified 01/15/25 03:56 Vomiting Penicillins AdvReac Mild yeast Verified 01/15/25 03:56 infection metformin AdvReac Unknown Nausea and Verified 01/15/25 03:56 Vomiting Vital Signs Vital Signs - 24 hr 01/14/25 19:37 01/14/25 20:33 01/14/25 20:47 Temperature 97.9 F Pulse Rate 87 90 89 Respiratory Rate 19 10 L 13 Blood Pressure 129/67 137/54 L 122/58 L Pulse Oximetry 100 93 95 Oxygen Delivery 01/14/25 21:02 01/14/25 21:32 01/14/25 21:47 Temperature Pulse Rate 88 87 87 Respiratory Rate 16 13 19 Blood Pressure 126/50 L 122/68 110/75 Pulse Oximetry 100 Oxygen Delivery 01/14/25 22:02 01/14/25 22:17 01/14/25 22:32 Temperature Pulse Rate 88 90 94 Respiratory Rate 21 H 15 18 Blood Pressure 119/94 H 159/56 H 151/93 H Pulse Oximetry 97 99 Oxygen Delivery 01/14/25 22:47 01/14/25 22:51 01/14/25 23:07 Temperature Pulse Rate 91 93 116 H Respiratory Rate 18 17 13 Blood Pressure 129/58 L Pulse Oximetry 100 98 Oxygen Delivery 01/14/25 23:15 01/14/25 23:18 01/14/25 23:45 Temperature Pulse Rate 102 H 102 H 105 H Respiratory Rate 24 H 19 16 Blood Pressure 106/79 Pulse Oximetry 98 Oxygen Delivery 01/15/25 00:06 01/15/25 00:15 01/15/25 00:17 Temperature Pulse Rate 102 H 101 H 93 Respiratory Rate 23 H 28 H 20 Blood Pressure 111/77 Pulse Oximetry Oxygen Delivery 01/15/25 00:37 01/15/25 00:45 01/15/25 01:06 Temperature Pulse Rate 97 107 H 98 Respiratory Rate 14 16 20 Blood Pressure Pulse Oximetry Oxygen Delivery 01/15/25 01:15 01/15/25 01:50 01/15/25 02:00 Temperature Pulse Rate 105 H Respiratory Rate 23 H Blood Pressure Pulse Oximetry 99 96 Oxygen Delivery 01/15/25 02:15 01/15/25 03:13 01/15/25 03:38 Temperature 98.3 F Pulse Rate 104 H Respiratory Rate 17 Blood Pressure 151/68 H Pulse Oximetry 94 99 Oxygen Delivery Room Air 01/15/25 03:55 Temperature 98.7 F Pulse Rate 95 Respiratory Rate 18 Blood Pressure 133/63 Pulse Oximetry 97 Oxygen Delivery Exam Narrative: General: well appearing, appears stated age. HEENT: normocephalic, atraumatic. Mucous membranes moist. EOMI, PERRLA, bilateral sclera anicteric, no conjunctival injection. Neck supple without JVD, lymphadenopathy, or bruit. Respiratory: clear to ascultation bilaterally. No rales/rhonic/wheezes. Cardiovascular: Regular rate and rhythm, normal S1-S2 upon ascultation. No murmurs, rubs, or clicks. PMI is nondisplaced, capillary refill less than 3 second. Abdomen: Soft, round, no pulsatile masses, nondistended and nontender. No rebound, no guarding. No CVA tenderness, no hepatosplenomegaly. Bowel sounds present to all four quadrants. No high pitch or tinkling sounds, resonant to percussion. Extremities: No cyanosis, clubbing, or edema present. Pulses are palpable 2/2. Active ROM to all four extremities. Neuro: Alert and orientated x 4. PERRLA. Cranial nerves 2-12 intact without focal deficit. Skin: Warm, dry, and intact, without rash, erythema, or lesion. Psych: pleasant, cooperative, normal speech, normal affect, no hallucinations, no dysarthia H&P: Results Labs Labs: Short CBC 01/14/25 Range/Units 22:12 WBC 7.9 (4.5-10.0) K/mm3 Hgb 12.6 (12.0-15.0) g/dL Hct 39.9 (37.0-47.0) % Plt Count 305 (150-375) k/mm3 BMP 01/14/25 22:12 Sodium 141 Potassium 5.1 H Chloride 97 L Carbon Dioxide 32 H BUN 41 H Creatinine 1.06 H Glucose 245 H Calcium 10.9 H Cardiac Enzymes 01/14/25 Range/Units 22:12 Troponin I < 0.012 (0.000-0.034) ng/mL Liver Function 01/14/25 Range/Units 22:12 Total Bilirubin 0.7 (0.2-1.3) mg/dL AST 21 (14-36) U/L ALT 25 (6-35) U/L Alkaline Phosphatase 115 (38-126) U/L Albumin 4.0 (3.5-5.1) g/dL Urine 01/14/25 Range/Units 23:16 Urine Color Yellow (Yellow) Urine Appearance Turbid H (Clear) Urine pH 5.0 (5.0-9.0) Ur Specific [place] 1.029 (1.001-1.035) Urine Protein 1+ H (Negative) mg/dL Urine Glucose (UA) 3+ H (Negative) mg/dL Assessment and Plan Assessment and plan (1) UTI (urinary tract infection): Code(s): N39.0 - Urinary tract infection, site not specified Status: Acute Assessment and Plan: With weakness IV Rocephin PT OT evaluate and treat (2) Nausea & vomiting: Code(s): R11.2 - Nausea with vomiting, unspecified Status: Acute Assessment and Plan: Improving Zofran IVF for hydration (3) Chronic low back pain: Code(s): M54.5 - Low back pain; G89.29 - Other chronic pain Status: Chronic Assessment and Plan: Pain pump neurosurgeon Dr. Haroon Roldan for pruritus (4) Type 2 diabetes mellitus with diabetic neuropathy: Qualifiers: Diabetes mellitus longterm insulin use: with longterm use Qualified Code(s): E11.40 - Type 2 diabetes mellitus with diabetic neuropathy, unspecified; Z79.4 - MCC (current) use of insulin Code(s): E11.40 - Type 2 diabetes mellitus with diabetic neuropathy, unspecified Status: Acute Assessment and Plan: Diabetic diet Accu-Cheks a.c. HS SSI and Lantus (5) Essential (primary) hypertension: Code(s): I10 - Essential (primary) hypertension Status: Chronic Assessment and Plan: Okay for BP meds (6) History of coronary artery stent placement: Code(s): Z95.5 - Presence of coronary angioplasty implant and graft Status: Acute Assessment and Plan: Continue aspirin, statin, Plavix, Jardiance Quality VTE Prophylaxis VTE prophylaxis: mechanical ordered and pharmacologic ordered Hospitalist MIPS Advance Care Plan I have confirmed that the patient's Advanced Care Plan is present, code status is documented, or surrogate decision maker is listed in patient medical record.: Yes Medication Reconciliation I have utilized all available resources to obtain, update and review the [facility] current medications (includes all prescriptions, OTC, herbals, cannabis, and nutritional supplements).: Yes
[2025-01-15] MEDS: METOPROLOL SUCCINATE EXT REL 12.5 MG TABCR 37.5 MG PO (08:37)
[2025-01-15] MEDS: hydroCHLOROthiazide 12.5 MG CAPSULE PO (08:37)
[2025-01-15] MEDS: PANTOPRAZOLE SODIUM IV 40 MG VIAL IV PUSH (08:38)
[2025-01-15 10:32] LABS: Basophils Percent Auto 0.6 % (0.2-1.2); Eosinophils Percent Auto 0.3 % (0-4.4); Hematocrit 37.9 % (37.0-47.0); Hemoglobin 11.7 g/dL (12.0-15.0); Immature Granulocyte Absolute 0.04 K/mm3 (0.00-0.031); Immature Granulocyte Percent A 0.6 % (0-0.5); Lymphocytes Absolute Auto 0.99 K/mm3 (0.9-3.2); Lymphocytes Percent Auto 15.4 % (18.3-44.2); Mean Corpuscular HGB Conc 30.9 g/dl (32-36); Mean Corpuscular Hemoglobin 30.6 pg (26-34); Mean Corpuscular Volume 99.2 fl (80-100); Mean Platelet Volume 9.4 fl (7.4-10.4); Monocytes Absolute Auto 0.6 K/mm3 (0.1-0.6); Monocytes Percent Auto 9.2 % (2.6-8.5); Neutrophils Absolute Auto 4.8 K/mm3 (1.3-6.7); Neutrophils Percent Auto 73.9 % (45.5-73.1); Platelet Count Result 266 k/mm3 (150-375); Red Blood Count 3.82 M/mm3 (4.2-5.4); White Blood Count 6.4 K/mm3 (4.5-10.0)
[2025-01-15 10:41] LABS: Anion Gap 12 mmol/L (4-12); Blood Urea Nitrogen 37 mg/dL (7-17); Calcium 9.4 mg/dL (8.4-10.2); Carbon Dioxide 25 mmol/L (22-30); Chloride 102 mmol/L (98-107); Estimated CRCL calculation 60 ml/min; Estimated Glomerular Filt Rate > 60; Glucose 234 mg/dL (65-110); Potassium 4.9 mmol/L (3.4-5.0); Sodium 139 mmol/L (137-145)
[2025-01-15 11:58] LABS: Glucose Point of Care 220 mg/dl (65-105)
[2025-01-15] MEDS: INSULIN ASPART (*BKC) 100 UNITS/ML SUB-Q ×3 (12:20→20:47)
[2025-01-15] MEDS: LORATADINE 10 MG TABLET PO (15:26)
[2025-01-15] MEDS: INSULIN HUMAN NPH (*BKC) 100 UNITS/ML 16 UNITS SUB-Q (16:59)
[2025-01-15 17:13] LABS: Glucose Point of Care 224 mg/dl (65-105)
[2025-01-15] MEDS: GABAPENTIN 300 MG CAPSULE 600 MG BY MOUTH (20:45)
[2025-01-15] MEDS: ATORVASTATIN 20 MG TABLET PO (20:46)
[2025-01-15] MEDS: lisinopriL 10 MG TABLET PO (20:46)
[2025-01-15 21:57] LABS: Glucose Point of Care 284 mg/dl (65-105)
[2025-01-16] VITALS (8 sets, daily range): BP systolic 105–144; BP diastolic 49–70; PULSE 77–92; RESP 18–20; TEMP 36–36.7; O2SAT 97–100
[2025-01-16] MEDS: SODIUM CHLORIDE 0.9% IV 1,000 ML 125 ML IV CONT (05:25)
[2025-01-16] MEDS: INSULIN HUMAN NPH (*BKC) 100 UNITS/ML 16 UNITS SUB-Q ×2 (05:29→17:47)
[2025-01-16 06:12] LABS: Basophils Percent Auto 0.8 % (0.2-1.2); Eosinophils Absolute Auto 0.2 K/mm3 (0-0.3); Eosinophils Percent Auto 3.4 % (0-4.4); Hematocrit 35.4 % (37.0-47.0); Immature Granulocyte Absolute 0.02 K/mm3 (0.00-0.031); Immature Granulocyte Percent A 0.4 % (0-0.5); Lymphocytes Absolute Auto 1.43 K/mm3 (0.9-3.2); Lymphocytes Percent Auto 26.8 % (18.3-44.2); Mean Corpuscular HGB Conc 31.1 g/dl (32-36); Mean Corpuscular Hemoglobin 30.7 pg (26-34); Mean Corpuscular Volume 98.9 fl (80-100); Mean Platelet Volume 9.5 fl (7.4-10.4); Monocytes Absolute Auto 0.5 K/mm3 (0.1-0.6); Monocytes Percent Auto 9.4 % (2.6-8.5); Neutrophils Absolute Auto 3.2 K/mm3 (1.3-6.7); Neutrophils Percent Auto 59.2 % (45.5-73.1); Platelet Count Result 244 k/mm3 (150-375); Red Blood Count 3.58 M/mm3 (4.2-5.4); White Blood Count 5.3 K/mm3 (4.5-10.0)
[2025-01-16 06:20] LABS: Anion Gap 8 mmol/L (4-12); Blood Urea Nitrogen 30 mg/dL (7-17); Calcium 8.6 mg/dL (8.4-10.2); Carbon Dioxide 25 mmol/L (22-30); Chloride 103 mmol/L (98-107); Estimated CRCL calculation 67 ml/min; Estimated Glomerular Filt Rate > 60; Glucose 179 mg/dL (65-110); Potassium 3.7 mmol/L (3.4-5.0); Sodium 136 mmol/L (137-145)
[2025-01-16 07:46] LABS: Glucose Point of Care 159 mg/dl (65-105)
--- NOTE | 2025-01-16 07:53 | P.PNIM_ITS ---
Progress Note: A&P Assessment and Plan (1) UTI (urinary tract infection): Code(s): N39.0 - Urinary tract infection, site not specified Status: Acute Assessment and Plan: With weakness IV Rocephin transition to oral tomorrow PT OT evaluate and treat (2) Nausea & vomiting: Code(s): R11.2 - Nausea with vomiting, unspecified Status: Acute Assessment and Plan: Improving Zofran (3) Chronic low back pain: Code(s): M54.5 - Low back pain; G89.29 - Other chronic pain Status: Chronic Assessment and Plan: Pain pump neurosurgeon Dr. Haroon Roldan for pruritus (4) Type 2 diabetes mellitus with diabetic neuropathy: Qualifiers: Diabetes mellitus fpc insulin use: with terminal supervisor use Qualified Code(s): E11.40 - Type 2 diabetes mellitus with diabetic neuropathy, unspecified; Z79.4 - terminal operations manager (current) use of insulin Code(s): E11.40 - Type 2 diabetes mellitus with diabetic neuropathy, unspecified Status: Acute Assessment and Plan: Diabetic diet Accu-Cheks a.c. HS SSI and Lantus (5) Essential (primary) hypertension: Code(s): I10 - Essential (primary) hypertension Status: Chronic Assessment and Plan: Blood pressure soft this morning will hold hydrochlorothiazide and lisinopril (6) History of coronary artery stent placement: Code(s): Z95.5 - Presence of coronary angioplasty implant and graft Status: Acute Assessment and Plan: Continue aspirin, statin, Plavix, Jardiance Time Spent With Patient Time with patient: Greater than 35 minutes Subjective Date/time seen: 01/16/25 07:53 Interval history: 61-year-old female with history of chronic pain with pain pump placed on 01/09/25, diabetes, history of stroke, and hypertension presents the hospital with nausea vomiting and weakness. Patient states that she recently had pain pump placed for chronic lower back pain. Today will be day 2 of IV antibiotics for UTI, patient will need to see PT OT before discharge. Patient complaining of dizziness today, orthostatics negative will start meclizine, patient will likely discharge tomorrow Review of Systems Review of Systems: 12 systems were reviewed and are negativ e except for as per HPI. Exam Narrative: General: well appearing, appears stated age. HEENT: normocephalic, atraumatic. Mucous membranes moist. EOMI, PERRLA, bilateral sclera anicteric, no conjunctival injection. Neck supple without JVD, lymphadenopathy, or bruit. Respiratory: clear to ascultation bilaterally. No rales/rhonic/wheezes. Cardiovascular: Regular rate and rhythm, normal S1-S2 upon ascultation. No murmurs, rubs, or clicks. PMI is nondisplaced, capillary refill less than 3 second. Abdomen: Soft, round, no pulsatile masses, nondistended and nontender. No rebound, no guarding. No CVA tenderness, no hepatosplenomegaly. Bowel sounds present to all four quadrants. No high pitch or tinkling sounds, resonant to percussion. Extremities: No cyanosis, clubbing, or edema present. Pulses are palpable 2/2. Active ROM to all four extremities. Neuro: Alert and orientated x 4. PERRLA. Cranial nerves 2-12 intact without focal deficit. Skin: Warm, dry, and intact, without rash, erythema, or lesion. Psych: pleasant, cooperative, normal speech, normal affect, no hallucinations, no dysarthia Objective Data Vital Signs Vital Signs: Vital Signs - 24 hr 01/15/25 08:00 01/15/25 08:37 01/15/25 12:00 Temperature 97.7 F Pulse Rate 90 88 Respiratory Rate 18 Blood Pressure 125/64 Pulse Oximetry 96 Oxygen Delivery Room Air 01/15/25 16:00 01/15/25 20:00 01/15/25 20:00 Temperature 98.1 F 98.1 F Pulse Rate 84 82 Respiratory Rate 18 20 Blood Pressure 110/77 132/48 L Pulse Oximetry 100 97 Oxygen Delivery Room Air 01/16/25 00:00 01/16/25 04:00 Temperature 97.7 F 98.0 F Pulse Rate 92 82 Respiratory Rate 20 20 Blood Pressure 105/61 112/49 L Pulse Oximetry 97 97 Oxygen Delivery Intake/Output Intake/Output: Intake & Output 01/13/25 01/14/25 01/15/25 01/16/25 23:59 23:59 23:59 23:59 Intake Total 2970 1390 Output Total 1200 Balance 1770 1390 Meds/Results Medications: Active Medications Generic Name Dose Route Start Last Admin Trade Name Freq PRN Reason Stop Dose Admin Acetaminophen 650 mg 01/15/25 02:44 01/15/25 04:03 Acetaminophen 325 Mg Tablet PO 650 mg Q4H PRN Administration Mild Pain (1-3) or Fever Aspirin 81 mg 01/16/25 09:00 Aspirin 81 Mg Enteric Tablet PO DAILY [facility] Atorvastatin Calcium 20 mg 01/15/25 21:00 01/15/25 20:46 Atorvastatin 20 Mg Tablet PO 20 mg QHS [facility]INITY Administration Clopidogrel Bisulfate 75 mg 01/16/25 09:00 Clopidogrel Bisulfate 75 Mg Tablet PO DAILY [facility] Dextrose 12.5 gm 01/15/25 08:09 Dextrose 50% 25 Gm/50 Ml Syringe IV PUSH PRN PRN Hypoglycemia Protocol Empagliflozin 25 mg 01/16/25 09:00 Empagliflozin 25 Mg Tablet PO DAILY [facility] Enoxaparin Sodium 40 mg 01/16/25 09:00 Enoxaparin 40 Mg/0.4 Ml Syringe SUB-Q DAILY [facility] Gabapentin 300 mg 01/16/25 09:00 Gabapentin 300 Mg Capsule BY MOUTH QAM [facility] Gabapentin 600 mg 01/15/25 21:00 01/15/25 20:45 Gabapentin 300 Mg Capsule BY MOUTH 600 mg QHS TRINITY Administration Glucagon 1 mg 01/15/25 08:09 Glucagon For Inj 1 Mg Vial IM PRN PRN Hypoglycemia Protocol Glucose 15 gm 01/15/25 08:09 Glucose Oral Gel 15 Gm Of Glucse In 37.5 Gm Tube PO PRN PRN Hypoglycemia Protocol Hydrochlorothiazide 12.5 mg 01/15/25 09:00 01/15/25 08:37 Hydrochlorothiazide 12.5 Mg Capsule PO 12.5 mg DAILY [facility] Administration Ceftriaxone Sodium 1 gm in 50 mls @ 100 mls/hr 01/16/25 03:00 01/16/25 02:17 Rocephin 1 Gm/Ns 50 Ml IVPB 100 mls/hr Q24H [facility]INITY Administration Sodium Chloride 1,000 mls @ 125 mls/hr 01/15/25 02:45 01/16/25 05:25 Normal Saline Iv IV CONT 125 mls/hr .Q8H [facility] Administration Dextrose 1,000 mls @ 100 mls/hr 01/15/25 08:09 Dextrose 5% 1,000 Ml IVPB PRN PRN Hypoglycemia Protocol Insulin Aspart 2 - 4 units 01/15/25 21:00 01/15/25 20:47 Insulin Aspart (*Bkc) 100 Units/Ml SUB-Q 2 units HS [facility] Administration Protocol Insulin Aspart 4 - 8 units 01/15/25 12:00 01/15/25 17:00 Insulin Aspart (*Bkc) 100 Units/Ml SUB-Q 4 units TIDWM [facility] Administration Protocol Insulin Human NPH 16 units 01/15/25 16:30 01/16/25 05:29 Insulin Human Nph (*Bkc) 100 Units/Ml 0.15 units/kg (16 units) 16 units SUB-Q Administration BIDAC [facility] Lisinopril 10 mg 01/15/25 21:00 01/15/25 20:46 Lisinopril 10 Mg Tablet PO 10 mg Q12HR [facility] Administration Loratadine 10 mg 01/15/25 14:35 01/15/25 15:26 Loratadine 10 Mg Tablet PO 10 mg QAM [facility] Administration Metoprolol Succinate 37.5 mg 01/15/25 09:00 01/15/25 08:37 Metoprolol Succinate Ext Rel 12.5 Mg Tabcr PO 37.5 mg DAILY [facility] Administration Ondansetron HCl 4 mg 01/15/25 14:49 01/15/25 15:25 Ondansetron Inj 4 Mg/2 Ml Vial IV PUSH 4 mg Q4H PRN Administration Nausea And Vomiting Pantoprazole Sodium 40 mg 01/15/25 09:00 01/15/25 08:38 Pantoprazole Sodium Iv 40 Mg Vial IV PUSH 40 mg QAM TRINITY Administration Radiology Results: ITS Impressions Abdomen/Pelvis CT 01/15/25 06:16 Impression: Suspected cystitis. Correlate with urinalysis. Small to moderate fat-containing umbilical hernia. Cholelithiasis. Chest X-Ray 01/15/25 06:34 Impression: Clear lungs. Labs Labs: Laboratory Results - last 24 hr 01/15/25 01/15/25 01/15/25 10:25 11:51 16:58 WBC 6.4 RBC 3.82 L Hgb 11.7 L Hct 37.9 MCV 99.2 MCH 30.6 MCHC 30.9 L RDW 15.0 H Plt Count 266 MPV 9.4 Immature Gran % (Auto) 0.6 H Neut % (Auto) 73.9 H Lymph % (Auto) 15.4 L [place] % (Auto) 9.2 H Eos % (Auto) 0.3 Baso % (Auto) 0.6 Lymph # (Auto) 0.99 [place] # (Auto) 0.6 Eos # (Auto) 0.0 Baso # (Auto) 0.0 Abs Immat Gran (auto) 0.04 H Absolute Neuts (auto) 4.8 Absolute Nucleated RBC 0.000 Nucleated RBC % 0.0 Sodium 139 Potassium 4.9 Chloride 102 Carbon Dioxide 25 Anion Gap 12 BUN 37 H Creatinine 0.92 Estim Creat Clear Calc 60 Estimated GFR > 60 Glucose 234 H POC Capillary Glucose 220 H 224 H Calcium 9.4 01/15/25 01/16/25 01/16/25 20:46 05:36 07:38 WBC 5.3 RBC 3.58 L Hgb 11.0 L Hct 35.4 L MCV 98.9 MCH 30.7 MCHC 31.1 L RDW 15.0 H Plt Count 244 MPV 9.5 Immature Gran % (Auto) 0.4 Neut % (Auto) 59.2 Lymph % (Auto) 26.8 [place] % (Auto) 9.4 H Eos % (Auto) 3.4 Baso % (Auto) 0.8 Lymph # (Auto) 1.43 [place] # (Auto) 0.5 Eos # (Auto) 0.2 Baso # (Auto) 0.0 Abs Immat Gran (auto) 0.02 Absolute Neuts (auto) 3.2 Absolute Nucleated RBC 0.000 Nucleated RBC % 0.0 Sodium 136 L Potassium 3.7 Chloride 103 Carbon Dioxide 25 Anion Gap 8 BUN 30 H Creatinine 0.82 Estim Creat Clear Calc 67 Estimated GFR > 60 Glucose 179 H POC Capillary Glucose 284 H 159 H Calcium 8.6 Quality VTE Prophylaxis VTE prophylaxis: mechanical ordered and pharmacologic ordered
--- NOTE | 2025-01-16 08:10 | P.CDI_ITS ---
CDI Query Clarification Request Patient with a BMI of 41.6 please provide a diagnosis to accompany this finding: * Overweight * Obesity * Morbid Obesity * Other/Unknown <Laura Mackey RN - Last Filed: 01/16/25 08:11> Clarified Diagnosis Clarified Diagnosis: Obesity <Celia Wilson APRN - Last Filed: 01/19/25 18:15>
[2025-01-16] MEDS: ASPIRIN 81 MG ENTERIC TABLET PO (08:31)
[2025-01-16] MEDS: GABAPENTIN 300 MG CAPSULE BY MOUTH (08:31)
[2025-01-16] MEDS: CLOPIDOGREL BISULFATE 75 MG TABLET PO (08:31)
[2025-01-16] MEDS: LORATADINE 10 MG TABLET PO (08:31)
[2025-01-16] MEDS: EMPAGLIFLOZIN 25 MG TABLET PO (08:31)
[2025-01-16] MEDS: ENOXAPARIN 40 MG/0.4 ML SYRINGE SUB-Q (08:32)
[2025-01-16] MEDS: METOPROLOL SUCCINATE EXT REL 12.5 MG TABCR 37.5 MG PO (08:32)
[2025-01-16] MEDS: PANTOPRAZOLE SODIUM IV 40 MG VIAL IV PUSH (08:33)
[2025-01-16 11:27] LABS: Glucose Point of Care 231 mg/dl (65-105)
[2025-01-16 11:33] LABS: Glucose Point of Care 173 mg/dl (65-105)
[2025-01-16] MEDS: INSULIN ASPART (*BKC) 100 UNITS/ML SUB-Q ×2 (11:47→21:09)
[2025-01-16 17:43] LABS: Glucose Point of Care 173 mg/dl (65-105)
[2025-01-16] MEDS: PHENAZOPYRIDINE HCL 100 MG TABLET 200 MG PO (18:10)
[2025-01-16] MEDS: GABAPENTIN 300 MG CAPSULE 600 MG BY MOUTH (21:09)
[2025-01-16] MEDS: ATORVASTATIN 20 MG TABLET PO (21:09)
[2025-01-17] VITALS: BP 105/48; PULSE 76; RESP 20; TEMP 36.5; O2SAT 100
[2025-01-17 03:41] VITALS: BP 96/55; PULSE 73; RESP 20; TEMP 36.6; O2SAT 98
[2025-01-17 04:23] LABS: Glucose Point of Care 290 mg/dl (65-105)
[2025-01-17] MEDS: INSULIN HUMAN NPH (*BKC) 100 UNITS/ML 16 UNITS SUB-Q (06:49)
[2025-01-17 06:56] LABS: Glucose Point of Care 148 mg/dl (65-105)
[2025-01-17 07:52] LABS: Glucose Point of Care 142 mg/dl (65-105)
[2025-01-17 08:00] VITALS: BP 98/56; PULSE 63; RESP 18; TEMP 36.6; O2SAT 97
[2025-01-17] MEDS: CLOPIDOGREL BISULFATE 75 MG TABLET PO (08:05)
[2025-01-17] MEDS: GABAPENTIN 300 MG CAPSULE BY MOUTH (08:05)
[2025-01-17] MEDS: EMPAGLIFLOZIN 25 MG TABLET PO (08:05)
[2025-01-17] MEDS: ASPIRIN 81 MG ENTERIC TABLET PO (08:05)
[2025-01-17] MEDS: LORATADINE 10 MG TABLET PO (08:05)
[2025-01-17] MEDS: ENOXAPARIN 40 MG/0.4 ML SYRINGE SUB-Q (08:06)
[2025-01-17] MEDS: PANTOPRAZOLE SODIUM IV 40 MG VIAL IV PUSH (08:06)
[2025-01-17] MEDS: PHENAZOPYRIDINE HCL 100 MG TABLET 200 MG PO ×2 (08:06→12:29)
[2025-01-17] MEDS: polyethylene glycoL 3350 17 GM POWD.PACK PO (10:50)
[2025-01-17] MEDS: BISACODYL 5 MG TABLET EC PO (10:50)
[2025-01-17 11:08] LABS: Lactic Acid Reflex 2.6 mmol/L (0.7-2.0)
[2025-01-17 11:58] VITALS: BP 117/62
[2025-01-17 12:01] VITALS: BP 122/59
[2025-01-17 12:05] LABS: Glucose Point of Care 119 mg/dl (65-105)
--- NOTE | 2025-01-17 13:04 | P.DS_ITS ---
DS: Admitting Diagnosis Discharge Date 01/17/25 Admitting Diagnosis Nausea vomiting diarrhea DS: Discharge Diagnosis Discharge Diagnosis (1) Nausea & vomiting: Code(s): R11.2 - Nausea with vomiting, unspecified Status: Acute (2) UTI (urinary tract infection): Code(s): N39.0 - Urinary tract infection, site not specified Status: Acute DS: Summary Hospital Course Hospital Course: 61-year-old female with history of chronic pain with pain pump placed on 01/09/25, diabetes, history of stroke, and hypertension presents the hospital with nausea vomiting and weakness. Patient states that she recently had pain pump placed for chronic lower back pain. Since then she has a had a hard time eating. She also complains of severe pruritus and weakness since starting the narcotic for the pain pump. Patient states that due to her severe weakness she was having difficulties walking so she came to the hospital. On admission patient was found to have a UTI and dehydration likely along with narcotics causing her weakness. Her pain is controlled with her pain pump, she sees a neurosurgeon Dr. Patiño. He states that he can attend on the pain pump if needed. Patient is awake and alert with some improvement in mobility this morning. patient comfortable at bedside this morning, vomiting resolved. Eating okay and ambulating okay. BP was stable and within normal limits and orthostatic negative. However patient advised to hold HCTZ and Lisinopril, continue Metoprolol until follow up with PCP. urine culture negative, however since patient had dysuria and improved on [place] ephin, i discharged her on 4 more days of Cefdinir. Continue follow up with Neurosurgeon for pain pump F/u with PCP in 3-5 days Time Spent with Patient Time attestation: Total time spent providing and/or coordinating discharge services: DS: Data Data Completed and Pending Labs on day of discharge: Labs from last 24 hours 01/17/25 01/17/25 01/17/25 11:43 10:54 07:41 POC Capillary Glucose 119 H 142 H Lactic Acid 2.6 H 01/17/25 01/16/25 01/16/25 06:48 20:37 16:55 POC Capillary Glucose 148 H 290 H 173 H Lactic Acid Discharge Plan Discharge Attending physician on discharge: Rodrigo Boyer Discharging Clinician: Rodrigo Boyer Anticipated Discharge Date/Time: 01/17/25 12:55 Patient Disposition: Home, Self-Care Activity: as tolerated Diet: heart healthy Patient Instructions: Antibiotic Form Patient Language: Hebrew Stand Alone Forms: General Discharge Information Follow-up/Referrals: Wilma Adames MD [Primary Care Provider] - (Follow-up with PCP in 3-5 days.) Discharge Medications: New cefdinir 300 mg capsule 300 mg PO Q12H 4 Days Qty: 8 0RF Rx Instructions: patient tolerated Rocephin in hospital without any reactions Continued mecobalamin (vitamin B12) 1,000 mcg tablet,chewable 2,000 mcg PO DAILY loratadine [Claritin] 10 mg tablet 10 mg PO DAILY Ozempic 2 mg/dose (8 mg/3 mL) pen injector 2 mg subcut WEEKLY Qty: 9 5RF Rx Instructions: MONDAYS (DME) FreeStyle Lucille 2 Driscoll Misc See Rx Instructions .Route Qty: 1 0RF Rx Instructions: As directed (DME) FreeStyle Lucille 2 Sensor Kit See Rx Instructions .Route Qty: 2 3RF Rx Instructions: every 2 weeks cholecalciferol (vitamin D3) 25 mcg (1,000 unit) capsule 25 mcg PO DAILY glucose 4 gram tablet,chewable 16 g PO Q15M PRN (Reason: hypoglycemia) Qty: 360 0RF Rx Instructions: until symptoms of low blood sugar are controlled naloxone 4 mg/actuation spray,non-aerosol 4 mg intranasal Q2-3M PRN (Reason: opioid overdose) Qty: 2 2RF Rx Instructions: spray 1 dose into ONE nostril and call 911; repeat every 2-3 minutes until responsive, alternating nostrils w each dose until emergency medical help arrives aspirin [Aspir-81] 81 mg tablet,delayed release (DR/EC) 81 mg PO DAILY Rx Instructions: take 1 tablet by oral route every day insulin lispro protamin-lispro [Humalog Mix 75-25 KwikPen] 100 unit/mL (75-25) insulin pen 32 unit subcut BID Qty: 90 1RF clopidogrel 75 mg tablet 75 mg PO DAILY Qty: 90 1RF metoprolol succinate 25 mg tablet extended release 24 hr 37.5 mg PO DAILY Qty: 135 1RF Patient Comments: QAM gabapentin 300 mg capsule See Rx Instructions .ROUTE .COMPLEX Qty: 270 1RF Dose Instruction: TAKE 1 CAPSULE BY MOUTH TWICE DAILY Rx Instructions: TAKE 1 CAPSULE BY MOUTH in the am and 2 capsules in the pm. omeprazole 20 mg capsule,delayed release(DR/EC) 20 mg PO DAILY Qty: 90 1RF atorvastatin 20 mg tablet 20 mg PO QHS Qty: 90 1RF hydrocodone-acetaminophen 5-325 mg tablet 1 tablet PO Q8H PRN (Reason: pain) Qty: 20 0RF Rx Instructions: take one tab po prn severe pain every 6-8 hours, max 3/day ondansetron 8 mg tablet,disintegrating 8 mg PO TID MDD 3 5 Days Qty: 15 0RF Rx Instructions: dissolve one tablet under tongue every 6-8 hours as needed for nausea, max 3/day. Jardiance 25 mg tablet 25 mg PO DAILY Held hydrochlorothiazide 12.5 mg capsule 12.5 mg PO DAILY Hold Instructions: Resume on 01/22/25. Hold until follow up with PCP Patient Comments: QAM lisinopril 10 mg tablet 10 mg PO BID Qty: 180 1RF Hold Instructions: Resume on 01/22/25. Hold onto follow-up with PCP Date of admission: 01/15/25 07:21 Primary Care Provider: Wilma Adames Admitting Provider: Hetal Ayala Attending physician on admission: Rodrigo Boyer Condition: Stable
[2025-01-17 13:56] LABS: Reflex Lactic Acid Yes or No Add Lactic
[2025-01-17] MEDS: MECLIZINE HCL 25 MG TABLET PO (15:48)
== END 2025-01-17 16:35 | disposition home or self-care (01) | DRG 690 ==
LOC: ANHED 01-15 02:49 → ANH2MED 01-15 03:11
PROVIDERS: Nurse Practitioner Gerontology; Admitting Provider Internal Medicine; Emergency Provider Emergency Medicine; PCP Family Medicine; Visit Provider Internal Medicine
DX: N39.0 Urinary tract infection, site not specified (principal); Z68.41 Body mass index [BMI] 40.0-44.9, adult; E86.0 Dehydration; E11.42 Type 2 diabetes mellitus with diabetic polyneuropathy; I25.10 Atherosclerotic heart disease of native coronary artery without angina pectoris; I10 Essential (primary) hypertension; G89.29 Other chronic pain; M54.50 Low back pain, unspecified; E66.9 Obesity, unspecified; R53.1 Weakness; T40.605A Adverse effect of unspecified narcotics, initial encounter; Z86.73 Personal history of transient ischemic attack (TIA), and cerebral infarction without residual deficits; Z98.1 Arthrodesis status; Z95.5 Presence of coronary angioplasty implant and graft
CPT/HCPCS: 36415; 71045; 74177; 80048; 80053; 81001; 82948; 83605; 83690; 83735; 84484; 85025; 87086; 87637; 96361; 96365; 96375; 97162; 97165; 99285; A9270; G0378; J0696; J0780; J1200; J1650; J1815; J2405; J2470; J7030; Q9967

== ENCOUNTER 2025-01-25 10:17 | Outpatient (NON) | payer MEDICARE, SELFPAY ==
--- OUTSIDE RECORDS SUMMARY | 2025-01-25 11:51 | XMS_ITS | Referral Summary ---
Author Organization [facility] Address [address] [place] [id number] Care Team Providers Care Jumpbasting Facing Baster Name Role Phone Edda Adames MD Primary Care Provider Amor Steiner MD Unavailable [phone] Encounters Date Type Department Care Team Description 12/29/2024 11:15 AM BLEACH ANALYST Office Visit [facility] Medical [facility] Cardiology [address] [place] [address] [address] [place] [address] Arun De Los Santos MD Hyperlipidemia, unspecified hyperlipidemia type (Primary Dx) 12/01/2024 Telephone [facility] Card[facility] [address] [place] [phone] Arun De Los Santos MD from [...] insulin Type 2 diabetes mellitus without complications 0 06/19/2022 Positive cardiac stress test 06/19/2022 Hyperlipidemia, unspecified 06/19/2022 Morbid obesity with BMI of 40.0-44.9, adult 05/16 Assessment & Plan (07/23/2022 2:55 PM CDT): Unstable Caloric restriction and exercise for weight reduction Assessment & Plan (06/19/2022 11:40 AM CDT): Unstable Caloric restriction exercise for weight reduction Assessment & Plan (01/13/2022 11:53 AM BLEACH ANALYST): She would benefit from weight loss, but [...] to 5 mg daily. Aortic ectasia, thoracic 10/04/2017 Coronary artery disease invo lving [place] coronary artery of [place] heart without angina pectoris 10/04/2017 Assessment & Plan (07/23/2022 2:54 PM CDT): Stable Continue aspirin/Plavix, Toprol-XL, sublingual nitro Assessment & Plan (06/22/2022 4:00 PM CDT): Stable Continue , aspirin, Lipitor, Plavix, insulin, lisinopril, metoprolol XL, sublingual nitro Assessment & Plan (01/13/2022 11:54 AM BLEACH ANALYST): Coronary disease is asymptomatic. Her electrocardiogram shows no change from baseline. She will follow-up in six months with Dr. Tomlinson, whom she knows from her coronary interventions. She understands that he will be retiring in a year, and he will refer her to another brick kiln worker in the practice at that time. Her [...] therapy. Assessment & Plan (10/24/2020 2:49 PM BLEACH ANALYST): Asymptomatic. Continue dual anti-platelet therapy. Assessment & Plan (04/22/2020 11:21 AM CDT): No symptoms of myocardial ischemia. Continue dual anti-platelet therapy. If surgery is recommended, she should have a pharmacologic stress test beforehand. Assessment & Plan (10/20/2019 12:03 PM BLEACH ANALYST): No symptoms of myocardial ischemia. She has [...] therapy. Assessment & Plan (01/16/2018 9:25 PM BLEACH ANALYST): She is not having any symptoms of [...] level. Assessment & Plan (11/01/2017 8:06 AM BLEACH ANALYST): No symptoms of myocardial ischemia. She is [...] XL Assessment & Plan (01/13/2022 11:51 AM BLEACH ANALYST): Blood pressure is controlled on her current regimen including amlodipine 5 mg daily, lisinopril 10 mg twice a day, and metoprolol succinate 37.5 mg daily. Continue these. Assessment & Plan (06/09/2021 12:07 PM CDT): Blood pressure is adequately controlled on current regimen. No change was made. Assessment & Plan (10/24/2020 2:49 PM BLEACH ANALYST): Not consistently ideally controlled. Will increase metoprolol to 37.5 mg daily. Assessment & Plan (04/22/2020 11:22 AM CDT): Blood pressure is adequately controlled on current regimen. No change was made. Assessment & Plan (10/20/2019 12:03 PM BLEACH ANALYST): Blood pressure is adequately controlled on current [...] altogether. Assessment & Plan (01/16/2018 9:23 PM BLEACH ANALYST): Blood pressure is adequately controlled on current regimen. No change was made. Assessment & Plan (11/01/2017 8:07 AM BLEACH ANALYST): Blood pressure is adequately controlled on current regimen. No change was made. Assessment & Plan (09/28/2017 2:37 PM BLEACH ANALYST): Blood pressure is adequately controlled on current regimen. No change was made. Hyperlipidemia 09/28/2017 Assessment & Plan (07/23/2022 2:54 PM CDT): Stable Continue Lipitor Assessment & Plan (06/19/2022 11:39 AM CDT): Stable Continue Lipitor Assessment & Plan (01/13/2022 11:52 AM BLEACH ANALYST): Continue atorvastatin 20 mg daily. Assessment & Plan (06/09/2021 12:07 PM CDT): On chronic lipid lowering therapy with good control. No changes made. Assessment & Plan (10/24/2020 2:50 PM BLEACH ANALYST): On chronic lipid lowering therapy with good control. No changes made. Assessment & Plan (04/22/2020 11:23 AM CDT): Lipids checked recently thru PCP were normal. Continue high-intensity statin therapy. Assessment & Plan (10/20/2019 12:03 PM BLEACH ANALYST): On chronic lipid lowering therapy with good control. No changes made. Assessment & Plan (02/20/2019 7:37 PM CDT): She is on high-intensity statin therapy. LDL is well controlled. Assessment & Plan (04/29/2018 5:03 PM CDT): On chronic lipid lowering therapy with good control. No changes made. Assessment & Plan (01/16/2018 9:25 PM BLEACH ANALYST): On chronic lipid lowering therapy with good control. No changes made. Assessment & Plan (11/01/2017 8:07 AM BLEACH ANALYST): On chronic lipid lowering therapy with good control. No changes made. Assessment & Plan (09/28/2017 2:38 PM BLEACH ANALYST): On chronic lipid-lowering therapy. Cerebrovascular accident 06/01/2017 Type 2 diabetes mellitus without complication Assessment & Plan (06/19/2022 11:40 AM CDT): Stable Continue insulin, Lipitor Essential hypertension 06/01/2017 Hyperlipidemia 06/01/2017 Resolved Problems Problem Noted Date Diagnosed Date Resolved Date Abnormal nuclear stress test 09/28/2017 04/29/2018 Assessment & Plan (09/28/2017 2:37 PM BLEACH ANALYST): Small, mild, reversible inferior defect which could [...] Comments Blood Pressure 120/70 12/29/2024 11:29 AM BLEACH ANALYST Pulse 80 12/29/2024 11:29 AM BLEACH ANALYST Temperature 36.7 C (98.1 F) 06/12/2013 4:03 PM CDT Respiratory Rate 18 10/04/2017 9:20 AM BLEACH ANALYST Oxygen Saturation 96% 12/29/2024 11:29 AM BLEACH ANALYST Inhaled Oxygen Concentration - - Weight 107 kg (236 lb) 12/29/2024 11:29 AM BLEACH ANALYST Height 160 cm (5' 3 ) 12/29/2024 11:29 AM BLEACH ANALYST Body Mass Index 41.81 12/29/2024 11:29 AM BLEACH ANALYST Plan of Treatment Not on file Procedures Procedure Name Priority Date/Time Associated Diagnosis Comments POCT LIPID PANEL Routine 12/29/2024 11:3 0 AM BLEACH ANALYST Hyperlipidemia, unspecified hyperlipidemia type ALBUMIN CREATININE RATIO, URINE Routine 03/01/2020 EGFR Routine 11/13/2017 12:59 AM BLEACH ANALYST from Last 3 Months or Most Recently Relevant to Health Maintenance Results * POCT lipid panel (12/29/2024 11:30 AM BLEACH ANALYST) Cholesterol, POC 126 mg/dL HDL, POC 68 mg/dL Triglycerides, POC 73 mg/dL LDL Cholesterol POC 43 mg/dL Chol/HDL Ratio, POC 0.6 Non-HDL Cholesterol, POC 58 mg/dL Cholesterol Total, POC 126 mg/dL Capillary blood 12/29/2024 1 1:30 AM BLEACH ANALYST Arun De Los Santos MD POINT OF CARE TEST ORDERA BLES Final Result * Albumin Creatinine Ratio, Urine (03/01/2020) Urine Edda Adames MD LAB URINE ORDERABLES F inal Result * eGFR (11/13/2017 12:59 AM BLEACH ANALYST) eGFR 95 mL/min/1.7 3 m2 [facility] Comment: Interpretive Data Reference Interval Normal >/= 90 mL/min/1.73m2 Mildly decreased* 60 - 89 mL/min/1.73m2 Mildly to moderately decreased 45 - 59 mL/min/1.73m2 Moderately to severely decreased 30 - 44 mL/min/1.73m2 Severely decreased 15 - 29 mL/min/1.73m2 Kidney Failure < 15 mL/min/1.73m2 *Relative to young adult level If -[place] multiply value by 1.16. Estimated glomerular filtration [...] 2017. Blood specimen (specimen) 11/13/2017 12:59 AM BLEACH ANALYST 11/13/2017 1:44 AM BLEACH ANALYST Narrative [facility] - 11/13/2017 2:10 AM BLEACH ANALYST Hemal Tomlinson DO LAB BLOOD ORDERABLES Final Result [facility] [address] Department [place] [address] from Last 3 Months or Most Recently Relevant to Health Maintenance Insurance MEDICARE [facility] MEDICARE [facility] Care Teams Jumpbasting Facing Baster Relationship Specialty Start Date End Date Edda Adames MD PCP - General 09/02/17 Amor Steiner MD [address] [place] [address] [place] [address] Referring Physician Pain Management 01/04/25
--- OUTSIDE RECORDS SUMMARY | 2025-01-25 11:51 | XMS_ITS | Continuity of Care Document ---
Author Organization [facility] Address [address] [place] [address] Phone Care Team Providers Care Food Safety Field Specialist Name Role Phone Farooq Xie Unavailable Unavailable [...] Diagnoses Date Provider Providers Copied on Encounter [facility], located [facility], [address], [place], [place], [id number], [place] tel:[phone] [facility] No Information Oct-2 6-200 9 Anne-Marie Trivedi. [address] [place], [address], [place]. tel:[phone] Referring Provider: Farooq Montana, [address] [place], [address]. tel:[phone] [facility], [address], [place], [place], [id number], [place] tel:[phone] [facility] No Information Oct-1 2-200 9 Anne-Marie Trivedi. [address] [place], [address], [place]. tel:[phone] Referring Provider: Farooq Montana, [address] [place], [address]. tel:[phone] [facility], [address] [place] [address] [address], [place], [place], [id number], [place] tel:[phone] [facility] No Information Sep-1 4-200 9 Anne-Marie Trivedi. [address] [place], [address], [place]. tel:[phone] Referring Provider: Farooq Montana, [address] [place], [address]. tel:[phone] [facility], [id number] [place] [address] [address], [place], [place], [id number], [place] tel:[phone] [facility] No Information Aug-3 1-200 9 Anne-Marie Trivedi. [address] [place], [address], [place]. tel:[phone] [facility], [address] [place] [address] [address], [place], [place], [id number], [place] tel:[phone] [facility] No Information Aug-2 4-200 9 Anne-Marie Trivedi. [address] [place], [address], [place]. tel:[phone] Referring Provider: Farooq Montana, [address] [place] [address], [address]. tel:[phone] Office Consultation [facility], [address] [place] [address] [address], [place], [place], [id number], tel:[phone] [facility] No Information 9 Anne-Marie Trivedi. [address] [place], [place], [facility], . tel:[phone] Referring Provider: Brandy Luna, [address], [place], [place], [facility]. tel:[phone] [facility], [address], [place], [place], [id number], tel:[phone] [facility] No Information 9 Beverly Nava. [address] , [address], [place], [address], . tel:[phone] Family History Family Member Type Diagnosis Age [...]
--- OUTSIDE RECORDS SUMMARY | 2025-01-25 11:51 | XMS_ITS | Clinical Summary ---
Author Organization [facility] Address [address] [place] [address] Care Team Providers Care Electrical Technician Instructor Name Role Phone Edda Adames MD Primary Care Provider Amor Steiner MD Unavailable [phone] Allergies Active Allergy Reactions Criticality Noted [...] reduction Assessment & Plan (01/13/2022 11:53 AM EARTH OBSERVATIONS CHIEF SCIENTIST): She would benefit from weight loss, but [...] thoracic 10/04/2017 Coronary artery disease invo lving [place]tz tribe coronary artery of [place] tribe heart without angina pectoris 10/04/2017 Assessment & Plan (07/23/2022 2:54 PM CDT): Stable Continue aspirin/Plavix, Toprol-XL, sublingual nitro Assessment & Plan (06/22/2022 4:00 PM CDT): Stable Continue , aspirin, Lipitor, Plavix, insulin, lisinopril, metoprolol XL, sublingual nitro Assessment & Plan (01/13/2022 11:54 AM EARTH OBSERVATIONS CHIEF SCIENTIST): Coronary disease is asymptomatic. Her electrocardiogram shows no change from baseline. She will follow-up in six months with Dr. Tomlinson, whom she knows from her coronary interventions. She understands that he will be retiring in a year, and he will refer her to another medical attendant in the practice at that time. Her [...] therapy. Assessment & Plan (10/24/2020 2:49 PM EARTH OBSERVATIONS CHIEF SCIENTIST): Asymptomatic. Continue dual anti-platelet therapy. Assessment & Plan (04/22/2020 11:21 AM CDT): No symptoms of myocardial ischemia. Continue dual anti-platelet therapy. If surgery is recommended, she should have a pharmacologic stress test beforehand. Assessment & Plan (10/20/2019 12:03 PM EARTH OBSERVATIONS CHIEF SCIENTIST): No symptoms of myocardial ischemia. She has [...] therapy. Assessment & Plan (01/16/2018 9:25 PM EARTH OBSERVATIONS CHIEF SCIENTIST): She is not having any symptoms of [...] level. Assessment & Plan (11/01/2017 8:06 AM EARTH OBSERVATIONS CHIEF SCIENTIST): No symptoms of myocardial ischemia. She is [...] XL Assessment & Plan (01/13/2022 11:51 AM EARTH OBSERVATIONS CHIEF SCIENTIST): Blood pressure is controlled on her current regimen including amlodipine 5 mg daily, lisinopril 10 mg twice a day, and metoprolol succinate 37.5 mg daily. Continue these. Assessment & Plan (06/09/2021 12:07 PM CDT): Blood pressure is adequately controlled on current regimen. No change was made. Assessment & Plan (10/24/2020 2:49 PM EARTH OBSERVATIONS CHIEF SCIENTIST): Not consistently ideally controlled. Will increase metoprolol to 37.5 mg daily. Assessment & Plan (04/22/2020 11:22 AM CDT): Blood pressure is adequately controlled on current regimen. No change was made. Assessment & Plan (10/20/2019 12:03 PM EARTH OBSERVATIONS CHIEF SCIENTIST): Blood pressure is adequately controlled on current [...] altogether. Assessment & Plan (01/16/2018 9:23 PM EARTH OBSERVATIONS CHIEF SCIENTIST): Blood pressure is adequately controlled on current regimen. No change was made. Assessment & Plan (11/01/2017 8:07 AM EARTH OBSERVATIONS CHIEF SCIENTIST): Blood pressure is adequately controlled on current regimen. No change was made. Assessment & Plan (09/28/2017 2:37 PM EARTH OBSERVATIONS CHIEF SCIENTIST): Blood pressure is adequately controlled on current regimen. No change was made. Hyperlipidemia 09/28/2017 Assessment & Plan (07/23/2022 2:54 PM CDT): Stable Continue Lipitor Assessment & Plan (06/19/2022 11:39 AM CDT): Stable Continue Lipitor Assessment & Plan (01/13/2022 11:52 AM EARTH OBSERVATIONS CHIEF SCIENTIST): Continue atorvastatin 20 mg daily. Assessment & Plan (06/09/2021 12:07 PM CDT): On chronic lipid lowering therapy with good control. No changes made. Assessment & Plan (10/24/2020 2:50 PM EARTH OBSERVATIONS CHIEF SCIENTIST): On chronic lipid lowering therapy with good control. No changes made. Assessment & Plan (04/22/2020 11:23 AM CDT): Lipids checked recently thru PCP were normal. Continue high-intensity statin therapy. Assessment & Plan (10/20/2019 12:03 PM EARTH OBSERVATIONS CHIEF SCIENTIST): On chronic lipid lowering therapy with good control. No changes made. Assessment & Plan (02/20/2019 7:37 PM CDT): She is on high-intensity statin therapy. LDL is well controlled. Assessment & Plan (04/29/2018 5:03 PM CDT): On chronic lipid lowering therapy with good control. No changes made. Assessment & Plan (01/16/2018 9:25 PM EARTH OBSERVATIONS CHIEF SCIENTIST): On chronic lipid lowering therapy with good control. No changes made. Assessment & Plan (11/01/2017 8:07 AM EARTH OBSERVATIONS CHIEF SCIENTIST): On chronic lipid lowering therapy with good control. No changes made. Assessment & Plan (09/28/2017 2:38 PM EARTH OBSERVATIONS CHIEF SCIENTIST): On chronic lipid-lowering therapy. Cerebrovascular accident 06/01/2017 Type 2 diabetes mellitus without complication Assessment & Plan (06/19/2022 11:40 AM CDT): Stable Continue insulin, Lipitor Essential hypertension 06/01/2017 Hyperlipidemia 06/01/2017 Resolved Problems Problem Noted Date Diagnosed Date Resolved Date Abnormal nuclear stress test 09/28/2017 04/29/2018 Assessment & Plan (09/28/2017 2:37 PM EARTH OBSERVATIONS CHIEF SCIENTIST): Small, mild, reversible inferior defect which could represent myocardial ischemia despite the absence of symptoms. She does have significant risk factors for coronary artery disease. I recommended cardiac catheterization, procedure with which she is familiar. She agrees to proceed. She understands that, if appropriate, coronary intervention would take place at the same time. Encounters Date Type Department Care Team Description 12/29/2024 11:15 AM EARTH OBSERVATIONS CHIEF SCIENTIST Office Visit [facility] Cardiology [address] [place] [address] [address] [address] Arun De Los Santos MD Hyperlipidemia, unspecified hyperlipidemia type (Primary Dx) 12/01/2024 Telephone [facility] Cardiology [address] [place] [address] [address] [place] [address] Arun De Los Santos MD from Last 3 Months Surgical History Surgery Date Site/Laterality Comments HYSTERECTOMY 38 y/o EYE SURGERY CARDIAC CATHETERIZATION Medical History Medical History Date Comments Stroke (cerebrum) ([facility]) May 15, 2017 Hypertension Kidney stones 2012 [...] Comments Blood Pressure 120/70 12/29/2024 11:29 AM EARTH OBSERVATIONS CHIEF SCIENTIST Pulse 80 12/29/2024 11:29 AM EARTH OBSERVATIONS CHIEF SCIENTIST Temperature 36.7 C (98.1 F) 06/12/2013 4:03 PM CDT Respiratory Rate 18 10/04/2017 9:20 AM EARTH OBSERVATIONS CHIEF SCIENTIST Oxygen Saturation 96% 12/29/2024 11:29 AM EARTH OBSERVATIONS CHIEF SCIENTIST Inhaled Oxygen Concentration - - Weight 107 kg (236 lb) 12/29/2024 11:29 AM EARTH OBSERVATIONS CHIEF SCIENTIST Height 160 cm (5' 3 ) 12/29/2024 11:29 AM EARTH OBSERVATIONS CHIEF SCIENTIST Body Mass Index 41.81 12/29/2024 11:29 AM EARTH OBSERVATIONS CHIEF SCIENTIST Plan of Treatment Health Maintenance Due Date [...] LIPID PANEL Routine 12/29/2024 11:3 0 AM EARTH OBSERVATIONS CHIEF SCIENTIST Hyperlipidemia, unspecified hyperlipidemia type ALBUMIN CREATININE RATIO, URINE Routine 03/01/2020 EGFR Routine 11/13/2017 12:59 AM EARTH OBSERVATIONS CHIEF SCIENTIST from Last 3 Months or Most Recently Relevant to Health Maintenance Results * POCT lipid panel (12/29/2024 11:30 AM EARTH OBSERVATIONS CHIEF SCIENTIST) Cholesterol, POC 126 mg/dL HDL, POC 68 mg/dL Triglycerides, POC 73 mg/dL LDL Cholesterol POC 43 mg/dL Chol/HDL Ratio, POC 0.6 Non-HDL Cholesterol, POC 58 mg/dL Cholesterol Total, POC 126 mg/dL Capillary blood 12/29/2024 1 1:30 AM EARTH OBSERVATIONS CHIEF SCIENTIST us Arun De Los Santos MD POINT OF CARE TEST ORDERA BLES Final Result * Albumin Creatinine Ratio, Urine (03/01/2020) Urine Edda Adames MD LAB URINE ORDERABLES F inal Result * eGFR (11/13/2017 12:59 AM EARTH OBSERVATIONS CHIEF SCIENTIST) eGFR 95 mL/min/1.7 3 m2 [facility] Comment: Interpretive Data Reference Interval Normal >/= 90 mL/min/1.73m2 Mildly decreased* 60 - 89 mL/min/1.73m2 Mildly to moderately decreased 45 - 59 mL/min/1.73m2 Moderately to severely decreased 30 - 44 mL/min/1.73m2 Severely decreased 15 - 29 mL/min/1.73m2 Kidney Failure < 15 mL/min/1.73m2 *Relative to young adult level If -Ghanaian multiply value by 1.16. Estimated glomerular filtration [...] 2017. Blood specimen (specimen) 11/13/2017 12:59 AM EARTH OBSERVATIONS CHIEF SCIENTIST 11/13/2017 1:44 AM EARTH OBSERVATIONS CHIEF SCIENTIST Narrative [facility] - 11/13/2017 2:10 AM EARTH OBSERVATIONS CHIEF SCIENTIST Hemal Tomlinson DO LAB BLOOD ORDERABLES Final Result [facility] [address] Department [place] [address] from Last 3 Months or Most Recently Relevant to Health Maintenance Insurance MEDICARE [facility] MEDICARE AARP Care Teams Electrical Technician Instructor Relationship Specialty Start Date End Date Edda Adames MD PCP - General 09/02/17 Amor Steiner MD [address] [place] [address] [place] [address] Referring Physician Pain Management 01/04/25
--- OUTSIDE RECORDS SUMMARY | 2025-01-25 11:51 | XMS_ITS | Clinical Summary ---
Author Organization [facility] Address [address] [place] [address] Care Team Providers Care Zigzag Stitcher Name Role Phone Eyad Spears MD Primary Care Provider [phone] Social History Tobacco Use Types Packs/Day Years [...] age to complete this topic Insurance [facility] Advance Directives Documents on File Type Date Recorded Patient Engineering Technical Specialist Expl anation Advance Directives and Livin g Will 05/21/2017 POWER OF HEARING STENOGRAPHER Care Teams Zigzag Stitcher Relationship Specialty Start Date End Date Eyad Spears MD [address] [place], [place] [id number] PCP - General 05/21/17
--- OUTSIDE RECORDS SUMMARY | 2025-01-25 11:52 | XMS_ITS | Continuity of Care Document ---
Author Organization [facility] Address [address] [place] [address] Phone Care Team Providers Care High School Coach Name Role Phone Arun Raines MD Unavailable Unavailable Advance Directives Directive Yes / No Effective Date File Name No Information Encounters Encounter Description Practice Location Reason(s) For Visit Diagnoses Date Provider Providers Copied on Encounter [employer], [address], [place], [place], [id number], tel:[phone] [facility] No Information Yanna Dias. [address] [place], [place], [id number], . tel:[phone] Referring Provider: Chacorta Gray, [address] [facility] [address], [place], [address]. tel:[phone] Family History Family Member Type Diagnosis Age At Onset No Information Payers Payer name Insurance type Covered republican ID Authoriza tion(s) BCBS INACTIVE OUT OF STATE [id number] Social History Type Description Quantity Date Captured [...]
[2025-01-25 14:32] LABS: Creatinine Urine 49.7 mg/dL
[2025-01-25 14:38] LABS: MALB Creatinine Ratio 140.2 mg/g (0-30); Microalbumin Urine Random 69.7 mg/L (0-16.7)
== END 2025-01-25 10:18 | disposition home or self-care (01) ==
LOC: ANHGOSHLAB 10:18
PROVIDERS: PCP Family Medicine; Visit Provider Internal Medicine
DX: E11.40 Type 2 diabetes mellitus with diabetic neuropathy, unspecified (principal); Z79.4 Long term (current) use of insulin
CPT/HCPCS: 82043

== ENCOUNTER 2025-08-16 09:57 | Outpatient (NON) | payer MEDICARE, SELFPAY ==
--- OUTSIDE RECORDS SUMMARY | 2009-09-09 10:45 | XMS_ITS | Continuity of Care Document ---
Author Organization [facility] Address [address] [place] [address] Phone Care Team Providers Care Dynamometer Tester Name Role Phone Farooq Xie Unavailable Unavailable Procedures Procedure Date Injection Eye Drug Kenalog/Triamcinolone Acetonide Inj Eye Exam & Treatment Injection Eye Drug Kenalog/Triamcinolone Acetonide Inj Ophthalmoscopy, Subsequent Ophthalmoscopy, Subsequent Optic Nerve Topography Optic Nerve Topography Aug- Post-op Follow-up Visit Treatment Of Retinal Lesion Treatment Of Retinal Lesion Injection Eye Drug Kenalog/Triamcinolone Acetonide Inj Office Consultation Injection Eye Drug Kenalog/Triamcinolone Acetonide Inj Ophthalmoscopy Ophthalmoscopy Optic Nerve Topography Optic Nerve Topography Eye Exam, New Patient Advance Directives Directive Yes / No Effective Date File Name No Information Encounters Encounter Description Practice Location Reason(s) For Visit Diagnoses Date Provider Providers Copied on Encounter [facility], [address], [place], [place], [id number], [place] tel:[phone] [facility] No Information Oct-2 6-200 9 Anne-Marie Trivedi. [address] [place], [address], [place]. tel:[phone] Referring Provider: Farooq Montana, [address] [place], [address]. tel:[phone] [facility], [address], [place], [place], [id number], [place] tel:[phone] [facility] No Information Oct-1 2-200 9 Anne-Marie Trivedi. [address] [place], [address], [place]. tel:[phone] Referring Provider: Farooq Montana, [address] [place], [address]. tel:[phone] [facility], [address] [place] [address] [address], [place], [place], [id number], [place] tel:[phone] [facility] No Information Sep-1 4-200 9 Anne-Marie rTivedi. [address] [place], [address], [place]. tel:[phone] Referring Provider: Farooq Montana, [address] [place], [address]. tel:[phone] [facility], [address] [place] [address] [address], [place], [place], [id number], [place] tel:[phone] [facility] No Information Aug-3 1-200 9 Anne-Marie Trivedi. [address] [place], [address], [place]. tel:[phone] [facility], [address] [place] [address] [address], [place], [place], [id number], [place] tel:[phone] [facility] No Information Aug-2 4-200 9 Anne-Marie Trivedi. [address] [place], [address], [place]. tel:[phone] Referring Provider: Farooq Montana, [address] [place] [address], [address]. tel:[phone] Office Consultation [facility], [address] [place] [address] [address], [place], [place], [id number], tel:[phone] [facility] No Information 9 Anne-Marie Trivedi. [address] [place], [place], [facility], . tel:[phone] Referring Provider: Brandy Luna, [address], [place], [place], [facility]. tel:[phone] [facility], [address], [place], [place], [id number], tel:[phone] [facility] No Information 9 Beverly Nava. [address] , [address], [place], [address], . tel:[phone] Family History Family Member Type Diagnosis Age At Onset No Information Payers Payer name Insurance type Covered constitution party ID Authoriza tion(s) No Information Social History Type Description Quantity Date Captured Comments Sex Female Smoking Status No Information Chief Complaint And Reason For Visit No Information Reason For Referral Reason For Referral No Information History Of Present Illness Encounter Date Complaint History Of Prese nt Illness No Information Functional Status Date Functional Assessmen t No Information Instructions Date Instruction Additional Infor mation No Information Assessments Type Assessment Date No Information Patient Care Teams Name Effective Dates (start - stop) Status Members No Information
--- OUTSIDE RECORDS SUMMARY | 2017-09-02 13:45 | XMS_ITS | Continuity of Care Document ---
[facility] Address [address] [place] [address] Phone Care Team Providers Care Assistant Public Defender Name Role Phone Arun Raines MD Unavailable Unavailable Advance Directives Directive Yes / No Effective Date File Name No Information Encounters Encounter Description Practice Location Reason(s) For Visit Diagnoses Date Provider Providers Copied on Encounter [facility], [address], [place], [place], [id number], tel:[phone] [facility] No Information Yanna Dias. [address] [place], [place], [id number], . tel:[phone] Referring Provider: Chacorta Gray, [address] [facility] [address], [place], [address]. tel:[phone] Family History Family Member Type Diagnosis Age At Onset No Information Payers Payer name Insurance type Covered republican ID Authoriza tion(s) BCBS INACTIVE OUT OF STATE [id number] Social History Type Description Quantity Date Captured [...]
--- OUTSIDE RECORDS SUMMARY | 2025-08-16 10:35 | XMS_ITS | Clinical Summary ---
Author Organization [facility] Address [address] [place] [address] Care Team Providers Care Dock Or Pier Laborer Name Role Phone Eyad Spears MD Primary Care Provider [phone] Social History Tobacco Use Types Packs/Day Years [...] 1 - Tdap) 1975 Mammogram Screening 1996 Pneumococcal Vaccine: 50+ Ye ars (1 of 1 - PCV) 2006 Zoster Vaccines (1 of 2) 2006 Dexa Scan (General) 2021 COVID-19 Vaccine ( - 2023-2 5 season) 2025 RSV Immunization or 60+ Years (1 - 1-dose 75+ series) 2031 Meningococcal B Vaccine Aged Out No l onger eligible based on patient's age to complete this topic Meningococcal Vaccine Aged Out No katya gal eligible based on patient's age to complete this topic RSV Immunizations Under 20 Months Aged Out No longer eligible based on patient's age to complete this topic Insurance [facility] Advance Directives Documents on File Type Date Recorded Patient Director Expl anation Advance Directives and Livin g Will 05/21/2017 POWER OF FRAME BUILDER Care Teams Dock Or Pier Laborer Relationship Specialty Start Date End Date Eyad Spears MD [address] [place], [place] [id number] PCP - General 05/21/17
--- OUTSIDE RECORDS SUMMARY | 2025-08-16 10:36 | XMS_ITS | Clinical Summary ---
Author Organization [facility] D Address [address] [place] [id number] Care Team Providers Care Product Management Intern Name Role Phone Edda Adames MD Primary Care Provider Amor Steiner MD Unavailable [phone] Allergies Active Allergy Reactions Criticality Noted Date Comments Metformin Nausea Only 05/31/2017 Morphine Other (See comments) Low 06/13/2013 Kidney/bladder infections Other reaction(s): vomiting/nausea vomiting/nausea Penicillins Other (See comments) Low 06/13/2013 yeast infection Medications aspirin 81 mg tablet Take 1 tablet (81 mg total) by mouth daily Active clopidogreL (PLAVIX) 75 mg tablet Take by mouth daily. Active nitroglycerin (NITROSTAT) 0.[address] 1 tablet (0.4 mg total) under the tongue every 5 (five) minutes as needed for chest pain. 25 tablet 1 017 Active lisinopril (PRINIVIL,ZESTR IL) 10 mg tablet Take 1 tablet (10 mg total) by mouth 2 (two) times a day. Active Contour Next Test Strips strip USE 1 STRIP TO CHECK GLUCOSE TWICE DAILY TO THREE TIMES DAILY Active HumaLOG 75/25 100 unit/mL 100 unit/mL pen for injection INJECT 35 UNITS SUBCUTANEOUSLY TWICE DAILY Active atorvastatin (LIPITOR) 20 mg tablet Take 1 tablet (20 mg total) by mouth daily 022 Active omeprazole (PriLOSEC) 20 mg capsule Take 1 capsule (20 mg total) by mouth daily 021 Active metoprolol XL (TOPROL-XL) 25 mg extended release tablet Take 1 tablet (25 mg total) by mouth as directed 1 11/16 tab daily Active gabapentin (NEURONTIN) 300 mg capsule Take 1 capsule (300 mg total) by mouth 2 (two) times a day 023 Active HYDROcodone-ayden taminophen (NORCO) 5-325 mg per tablet Take by mouth every 6 (six) hours as needed 023 Active semaglutide (Ozempic) 1 mg/dose (2 mg/1.5 mL) pen injector injection Inject 0.75 mL (1 mg total) under the skin once a week Active empagliflozin (JARDIANCE) 25 mg tablet Take 1 tablet (25 mg total) by mouth daily Active hydroCHLOROthia zide 12.5 mg tabletIndicatio ns:Essential hypertension TAKE 1 CAPSULE BY MOUTH IN THE MORNING 90 tablet/caps ule 3 025 Active hydroCHLOROthia zide (MICROZIDE) 12.5 mg capsuleIndicati ons:Essential hypertension TAKE 1 CAPSULE BY MOUTH IN THE MORNING 90 capsule 3 024 2024 Discontinued Active Problems Problem Noted Date Diagnosed Date [...] reduction Assessment & Plan (01/13/2022 11:53 AM FOOD ASSEMBLER): She would benefit from weight loss, but [...] thoracic 10/04/2017 Coronary artery disease invo lving [place] coronary artery of [place] heart without angina pectoris 10/04/2017 Assessment & Plan (07/23/2022 2:54 PM CDT): Stable Continue aspirin/Plavix, Toprol-XL, sublingual nitro Assessment & Plan (06/22/2022 4:00 PM CDT): Stable Continue , aspirin, Lipitor, Plavix, insulin, lisinopril, metoprolol XL, sublingual nitro Assessment & Plan (01/13/2022 11:54 AM FOOD ASSEMBLER): Coronary disease is asymptomatic. Her electrocardiogram shows no change from baseline. She will follow-up in six months with Dr. Tomlinson, whom she knows from her coronary interventions. She understands that he will be retiring in a year, and he will refer her to another street inspector in the practice at that time. Her [...] therapy. Assessment & Plan (10/24/2020 2:49 PM FOOD ASSEMBLER): Asymptomatic. Continue dual anti-platelet therapy. Assessment & Plan (04/22/2020 11:21 AM CDT): No symptoms of myocardial ischemia. Continue dual anti-platelet therapy. If surgery is recommended, she should have a pharmacologic stress test beforehand. Assessment & Plan (10/20/2019 12:03 PM FOOD ASSEMBLER): No symptoms of myocardial ischemia. She has [...] therapy. Assessment & Plan (01/16/2018 9:25 PM FOOD ASSEMBLER): She is not having any symptoms of [...] level. Assessment & Plan (11/01/2017 8:06 AM FOOD ASSEMBLER): No symptoms of myocardial ischemia. She is [...] XL Assessment & Plan (01/13/2022 11:51 AM FOOD ASSEMBLER): Blood pressure is controlled on her current regimen including amlodipine 5 mg daily, lisinopril 10 mg twice a day, and metoprolol succinate 37.5 mg daily. Continue these. Assessment & Plan (06/09/2021 12:07 PM CDT): Blood pressure is adequately controlled on current regimen. No change was made. Assessment & Plan (10/24/2020 2:49 PM FOOD ASSEMBLER): Not consistently ideally controlled. Will increase metoprolol to 37.5 mg daily. Assessment & Plan (04/22/2020 11:22 AM CDT): Blood pressure is adequately controlled on current regimen. No change was made. Assessment & Plan (10/20/2019 12:03 PM FOOD ASSEMBLER): Blood pressure is adequately controlled on current [...] altogether. Assessment & Plan (01/16/2018 9:23 PM FOOD ASSEMBLER): Blood pressure is adequately controlled on current regimen. No change was made. Assessment & Plan (11/01/2017 8:07 AM FOOD ASSEMBLER): Blood pressure is adequately controlled on current regimen. No change was made. Assessment & Plan (09/28/2017 2:37 PM FOOD ASSEMBLER): Blood pressure is adequately controlled on current regimen. No change was made. Hyperlipidemia 09/28/2017 Assessment & Plan (07/23/2022 2:54 PM CDT): Stable Continue Lipitor Assessment & Plan (06/19/2022 11:39 AM CDT): Stable Continue Lipitor Assessment & Plan (01/13/2022 11:52 AM FOOD ASSEMBLER): Continue atorvastatin 20 mg daily. Assessment & Plan (06/09/2021 12:07 PM CDT): On chronic lipid lowering therapy with good control. No changes made. Assessment & Plan (10/24/2020 2:50 PM FOOD ASSEMBLER): On chronic lipid lowering therapy with good control. No changes made. Assessment & Plan (04/22/2020 11:23 AM CDT): Lipids checked recently thru PCP were normal. Continue high-intensity statin therapy. Assessment & Plan (10/20/2019 12:03 PM FOOD ASSEMBLER): On chronic lipid lowering therapy with good control. No changes made. Assessment & Plan (02/20/2019 7:37 PM CDT): She is on high-intensity statin therapy. LDL is well controlled. Assessment & Plan (04/29/2018 5:03 PM CDT): On chronic lipid lowering therapy with good control. No changes made. Assessment & Plan (01/16/2018 9:25 PM FOOD ASSEMBLER): On chronic lipid lowering therapy with good control. No changes made. Assessment & Plan (11/01/2017 8:07 AM FOOD ASSEMBLER): On chronic lipid lowering therapy with good control. No changes made. Assessment & Plan (09/28/2017 2:38 PM FOOD ASSEMBLER): On chronic lipid-lowering therapy. Cerebrovascular accident 06/01/2017 Type 2 diabetes mellitus without complication Assessment & Plan (06/19/2022 11:40 AM CDT): Stable Continue insulin, Lipitor Essential hypertension 06/01/2017 Hyperlipidemia 06/01/2017 Resolved Problems Problem Noted Date Diagnosed Date Resolved Date Abnormal nuclear stress test 09/28/2017 04/29/2018 Assessment & Plan (09/28/2017 2:37 PM FOOD ASSEMBLER): Small, mild, reversible inferior defect which could represent myocardial ischemia despite the absence of symptoms. She does have significant risk factors for coronary artery disease. I recommended cardiac catheterization, procedure with which she is familiar. She agrees to proceed. She understands that, if appropriate, coronary intervention would take place at the same time. Surgical History Surgery Date Site/Laterality Comments HYSTERECTOMY 38 y/o EYE SURGERY CARDIAC CATHETERIZATION Medical History Medical History Date Comments Stroke (cerebrum) May 15, 2017 Hypertension Kidney stones 2012 Diabetes mellitus DJD (degenerative joint dise ase), lumbar Rotator [...] Comments Blood Pressure 120/70 12/29/2024 11:29 AM FOOD ASSEMBLER Pulse 80 12/29/2024 11:29 AM FOOD ASSEMBLER Temperature 36.7 C (98.1 F) 06/12/2013 4:03 PM CDT Respiratory Rate 18 10/04/2017 9:20 AM FOOD ASSEMBLER Oxygen Saturation 96% 12/29/2024 11:29 AM FOOD ASSEMBLER Inhaled Oxygen Concentration - - Weight 107 kg (236 lb) 12/29/2024 11:29 AM FOOD ASSEMBLER Height 160 cm (5' 3) 12/29/2024 11:29 AM FOOD ASSEMBLER Body Mass Index 41.81 12/29/2024 11:29 AM FOOD ASSEMBLER Plan of Treatment Health Maintenance Due Date [...] - PCV) 01/29/2023 01/29/2022 Influenza Vaccine (#1) 2025 8, 09/14/2017, 10/26/2016 Lipid Panel 12/29/2025 12/29/2024, 03/16, 02/12/2021, Additional history exists Procedures Procedure Name Priority Date/Time Associated Diagnosis Comments POCT LIPID PANEL Routine 12/29/2024 11:3 0 AM FOOD ASSEMBLER Hyperlipidemia, unspecified hyperlipidemia type ALBUMIN CREATININE RATIO, URINE Routine 03/01/2020 EGFR Routine 11/13/2017 12:59 AM FOOD ASSEMBLER from Last 3 Months or Most Recently Relevant to Health Maintenance Results * POCT lipid panel (12/29/2024 11:30 AM FOOD ASSEMBLER) Cholesterol, POC 126 mg/dL HDL, POC 68 mg/dL Triglycerides, POC 73 mg/dL LDL Cholesterol POC 43 mg/dL Chol/HDL Ratio, POC 0.6 Non-HDL Cholesterol, POC 58 mg/dL Cholesterol Total, POC 126 mg/dL Capillary blood 12/29/2024 1 1:30 AM FOOD ASSEMBLER Arun De Los Santos MD POINT OF CARE TEST ORDERA BLES Final Result * Albumin Creatinine Ratio, Urine (03/01/2020) Urine Edda Adames MD LAB URINE ORDERABLES F inal Result * eGFR (11/13/2017 12:59 AM FOOD ASSEMBLER) eGFR 95 mL/min/1.7 3 m2 [facility] Comment: Interpretive Data Reference Interval Normal >/= 90 mL/min/1.73m2 Mildly decreased* 60 - 89 mL/min/1.73m2 Mildly to moderately decreased 45 - 59 mL/min/1.73m2 Moderately to severely decreased 30 - 44 mL/min/1.73m2 Severely decreased 15 - 29 mL/min/1.73m2 Kidney Failure < 15 mL/min/1.73m2 *Relative to young adult level If -Gibralt[place] multiply value by 1.16. Estimated glomerular filtration [...] 2017. Blood specimen (specimen) 11/13/2017 12:59 AM FOOD ASSEMBLER 11/13/2017 1:44 AM FOOD ASSEMBLER Narrative [facility] - 11/13/2017 2:10 AM FOOD ASSEMBLER Hemal Tomlinson DO LAB BLOOD ORDERABLES Final Result [facility] [address] [place] [address] from Last 3 Months or Most Recently Relevant to Health Maintenance Insurance [facility]ICARE [facility] MEDICARE [facility] Care Teams Product Management Intern Relationship Specialty Start Date End Date Edda Adames MD PCP - General 09/02/17 Amor Steiner MD [address] [place] [address] [place] [address] Referring Physician Pain Management 01/04/25
[2025-08-16 13:10] LABS: Add Urine Microscopic? YES; Appearance Urine Clear (Clear); Glucose Urine UA Negative (Negative); Leukocyte Esterase Ur 2+ LEU/UL (Negative); Nitrate Urine Negative (Negative); Non Pathogenic Casts 0-2; Specific Grav Ur 1.012 (1.001-1.035)
== END 2025-08-16 09:58 | disposition home or self-care (01) ==
LOC: ANHGOSHLAB 09:59
PROVIDERS: PCP Family Medicine; Visit Provider Nurse Practitioner Family
DX: R39.9 Unspecified symptoms and signs involving the genitourinary system (principal)
CPT/HCPCS: 81001; 87086

== ENCOUNTER 2025-11-07 10:29 | Outpatient (CLI) | payer MEDICARE, SELFPAY ==
--- OUTSIDE RECORDS SUMMARY | 2025-11-07 10:32 | XMS_ITS | Clinical Summary ---
Author Organization [facility] D Address [address] [place] [id number] Care Team Providers Care Multimedia Editor Name Role Phone Edda Adames MD Primary Care Provider Amor Steiner MD Unavailable [phone] Allergies Active Allergy Reactions Criticality Noted [...] 25 tablet 1 10/16/20 17 Active lisinopril (PRINIVIL,ZESTRIL) 10 mg tablet Take 1 tablet (10 [...] (two) times a day 11/26/19 23 Active HYDROcodone-acetam inophen (NORCO) 5-325 mg per tablet Take by mouth every 6 (six) hours as needed 12/02/19 23 Active hydroCHLOROthiazid e 12.5 mg tabletIndications: Essential hypertension TAKE 1 CAPSULE BY MOUTH IN THE MORNING 90 tablet/caps ule 3 08/13/20 25 Active cholecalciferol (VITAMIN D-3) 1,000 unit capsule Take 25 mcg by mouth 10/26/20 23 Active ciprofloxacin (CIPRO) 500 mg tablet Take 1 tablet (500 mg total) by mouth 10/02/20 25 Active glucose 4 gram chewable tablet Take 4 tablets (16 g total) by mouth 12/28/19 25 Active mecobalamin, vitamin B12, 1,000 mcg tablet,chewable Take 2,000 mcg by mouth 02/29/20 20 Active naloxone (NARCAN) 4 mg/actuation spray,non-aerosol Administer 1 spray (4 mg total) into affected nostril(s) 08/21/20 24 Active ondansetron ODT (ZOFRAN-ODT) 8 mg disintegrating tablet DISSOLVE 1 TABLET IN MOUTH EVERY 8 HOURS NEEDED FOR NAUSEA AND VOMITING 07/23/20 25 Active furosemide (LASIX) 20 mg tablet Take 1 tablet (20 mg total) by mouth daily 30 tablet 11 10/05/20 25 026 Active Active Problems Problem Noted Date Diagnosed [...] reduction Assessment & Plan (01/13/2022 11:53 AM ATM TECHNICIAN): She would benefit from weight loss, [...] thoracic 10/04/2017 Coronary artery disease invo lving tribe coronary artery of tribe heart without angina pectoris 10/04/2017 Assessment & Plan (07/23/2022 2:54 PM CDT): Stable Continue aspirin/Plavix, Toprol-XL, sublingual nitro Assessment & Plan (06/22/2022 4:00 PM CDT): Stable Continue , aspirin, Lipitor, Plavix, insulin, lisinopril, metoprolol XL, sublingual nitro Assessment & Plan (01/13/2022 11:54 AM ATM TECHNICIAN): Coronary disease is asymptomatic. Her electrocardiogram shows no change from baseline. She will follow-up in six months with Dr. Tomlinson, whom she knows from her coronary interventions. She understands that he will be retiring in a year, and he will refer her to another prisoner classification interviewer in the practice at that time. Her [...] therapy. Assessment & Plan (10/24/2020 2:49 PM ATM TECHNICIAN): Asymptomatic. Continue dual anti-platelet therapy. Assessment & Plan (04/22/2020 11:21 AM CDT): No symptoms of myocardial ischemia. Continue dual anti-platelet therapy. If surgery is recommended, she should have a pharmacologic stress test beforehand. Assessment & Plan (10/20/2019 12:03 PM ATM TECHNICIAN): No symptoms of myocardial ischemia. She [...] therapy. Assessment & Plan (01/16/2018 9:25 PM ATM TECHNICIAN): She is not having any symptoms [...] level. Assessment & Plan (11/01/2017 8:06 AM ATM TECHNICIAN): No symptoms of myocardial ischemia. She [...] XL Assessment & Plan (01/13/2022 11:51 AM ATM TECHNICIAN): Blood pressure is controlled on her current regimen including amlodipine 5 mg daily, lisinopril 10 mg twice a day, and metoprolol succinate 37.5 mg daily. Continue these. Assessment & Plan (06/09/2021 12:07 PM CDT): Blood pressure is adequately controlled on current regimen. No change was made. Assessment & Plan (10/24/2020 2:49 PM ATM TECHNICIAN): Not consistently ideally controlled. Will increase metoprolol to 37.5 mg daily. Assessment & Plan (04/22/2020 11:22 AM CDT): Blood pressure is adequately controlled on current regimen. No change was made. Assessment & Plan (10/20/2019 12:03 PM ATM TECHNICIAN): Blood pressure is adequately controlled on [...] altogether. Assessment & Plan (01/16/2018 9:23 PM ATM TECHNICIAN): Blood pressure is adequately controlled on current regimen. No change was made. Assessment & Plan (11/01/2017 8:07 AM ATM TECHNICIAN): Blood pressure is adequately controlled on current regimen. No change was made. Assessment & Plan (09/28/2017 2:37 PM ATM TECHNICIAN): Blood pressure is adequately controlled on current regimen. No change was made. Hyperlipidemia 09/28/2017 Assessment & Plan (07/23/2022 2:54 PM CDT): Stable Continue Lipitor Assessment & Plan (06/19/2022 11:39 AM CDT): Stable Continue Lipitor Assessment & Plan (01/13/2022 11:52 AM ATM TECHNICIAN): Continue atorvastatin 20 mg daily. Assessment & Plan (06/09/2021 12:07 PM CDT): On chronic lipid lowering therapy with good control. No changes made. Assessment & Plan (10/24/2020 2:50 PM ATM TECHNICIAN): On chronic lipid lowering therapy with good control. No changes made. Assessment & Plan (04/22/2020 11:23 AM CDT): Lipids checked recently thru PCP were normal. Continue high-intensity statin therapy. Assessment & Plan (10/20/2019 12:03 PM ATM TECHNICIAN): On chronic lipid lowering therapy with good control. No changes made. Assessment & Plan (02/20/2019 7:37 PM CDT): She is on high-intensity statin therapy. LDL is well controlled. Assessment & Plan (04/29/2018 5:03 PM CDT): On chronic lipid lowering therapy with good control. No changes made. Assessment & Plan (01/16/2018 9:25 PM ATM TECHNICIAN): On chronic lipid lowering therapy with good control. No changes made. Assessment & Plan (11/01/2017 8:07 AM ATM TECHNICIAN): On chronic lipid lowering therapy with good control. No changes made. Assessment & Plan (09/28/2017 2:38 PM ATM TECHNICIAN): On chronic lipid-lowering therapy. Cerebrovascular accident 06/01/2017 Type 2 diabetes mellitus without complication Assessment & Plan (06/19/2022 11:40 AM CDT): Stable Continue insulin, Lipitor Essential hypertension 06/01/2017 Hyperlipidemia 06/01/2017 Resolved Problems Problem Noted Date Diagnosed Date Resolved Date Abnormal nuclear stress test 09/28/2017 04/29/2018 Assessment & Plan (09/28/2017 2:37 PM ATM TECHNICIAN): Small, mild, reversible inferior defect which could represent myocardial ischemia despite the absence of symptoms. She does have significant risk factors for coronary artery disease. I recommended cardiac catheterization, procedure with which she is familiar. She agrees to proceed. She understands that, if appropriate, coronary intervention would take place at the same time. Encounters Date Type Department Care Team Description 10/05/2025 11:30 AM ATM TECHNICIAN Office Visit [facility] [address] [place] [address] [address] [place] [address] Arun De Los Santos MD detention current use of diuretic (Primary Dx) 09/27/2025 Telephone [facility] [address] [place] [address] [address] [place] [address] Arun De Los Santos MD [...] Never Smokeless Tobacco: Never Tobacco Cessation:Counseling Given: Not Answered Alcohol Use Standard Drinks/Week Comments No 0 (1 standard drink = 0.6 oz pur e alcohol) Comments Unknown Sex and Gender Information Value Date Recorded Sex Assigned at Not on file Legal Sex Female 8:52 AM CDT Gender Identity Not on file Sexual Orientation Not on file Last Filed Vital Signs Vital Sign Reading Time Taken Comments Blood Pressure 114/78 10/05/2025 11:08 AM ATM TECHNICIAN Pulse 70 10/05/2025 11:08 AM ATM TECHNICIAN Temperature 36.7 C (98.1 F) 06/12/2013 4:03 PM CDT Respiratory Rate 18 10/04/2017 9:20 AM ATM TECHNICIAN Oxygen Saturation 95% 10/05/2025 11:08 AM ATM TECHNICIAN Inhaled Oxygen Concentration - - Weight 90.7 kg (200 lb) 10/05/2025 11:08 AM ATM TECHNICIAN Height 160 cm (5' 3) 12/29/2024 11:29 AM ATM TECHNICIAN Body Mass Index 35.43 12/29/2024 11:29 AM ATM TECHNICIAN Plan of Treatment Health Maintenance Due Date Last Done Comments Breast Cancer Screening-Mammogram 1956 Colon Cancer Screening-Colonoscopy 1956 Depression Screening 1956 Fall Risk Assessment 1956 Hemoglobin A1C 1956 Hepatitis C Screening 1956 Osteoporosis Screening-Bone Density Scan 1956 Dilated Eye Exam 1956 Foot Exam 1956 DTaP/Tdap/Td Vaccine (1 - Tdap) 1967 Hepatitis B Screening 1974 eGFR 11/13/2018 11/13/2017, 10/16, 10/16/2017, Additional history exists Albumin Creatinine Ratio, Urine 03/01/2021 0 Well Visit 65+ 2021 Pneumococcal vaccine 65+ (2 of 2 - PCV) 01/29/2023 01/29/2022 Covid-19 Vaccine (4 2024-2 6 season) 2025 10/17/2021, 02/18/2021, 01/28/2021 Lipid Panel 12/29/2025 12/29/2024, 03/16, 02/12/2021, Additional history exists Zoster Vaccine Completed 12/16/2020, 09/16, 09/14/2017 Influenza Vaccine Completed 09/05/2025, , 10/17/2021, Additional history exists Procedures Procedure Name Priority Date/Time Associated Diagnosis Comments POCT LIPID PANEL Routine 12/29/2024 11:3 0 AM ATM TECHNICIAN Hyperlipidemia, unspecified hyperlipidemia type ALBUMIN CREATININE RATIO, URINE Routine 03/01/2020 EGFR Routine 11/13/2017 12:59 AM ATM TECHNICIAN from Last 3 Months or Most Recently Relevant to Health Maintenance Results * POCT lipid panel (12/29/2024 11:30 AM ATM TECHNICIAN) Cholesterol, POC 126 mg/dL HDL, POC 68 mg/dL Triglycerides, POC 73 mg/dL LDL Cholesterol POC 43 mg/dL Chol/HDL Ratio, POC 0.6 Non-HDL Cholesterol, POC 58 mg/dL Cholesterol Total, POC 126 mg/dL Capillary blood 12/29/2024 1 1:30 AM ATM TECHNICIAN us Arun De Los Santos MD POINT OF CARE TEST ORDERA BLES Final Result * Albumin Creatinine Ratio, Urine (03/01/2020) Urine Edda Adames MD LAB URINE ORDERABLES F inal Result * eGFR (11/13/2017 12:59 AM ATM TECHNICIAN) eGFR 95 mL/min/1.7 3 m2 [facility] Comment: Interpretive Data Reference Interval Normal >/= 90 mL/min/1.73m2 Mildly decreased* 60 - 89 mL/min/1.73m2 Mildly to moderately decreased 45 - 59 mL/min/1.73m2 Moderately to severely decreased 30 - 44 mL/min/1.73m2 Severely decreased 15 - 29 mL/min/1.73m2 Kidney Failure < 15 mL/min/1.73m2 *Relative to young adult level If -Cam[place] multiply value by 1.16. Estimated glomerular filtration [...] 2017. Blood specimen (specimen) 11/13/2017 12:59 AM ATM TECHNICIAN 11/13/2017 1:44 AM ATM TECHNICIAN Narrative [facility] - 11/13/2017 2:10 AM ATM TECHNICIAN Hemal Tomlinson DO LAB BLOOD ORDERABLES Final Result [facility] [address] [place] [address] from Last 3 Months or Most Recently Relevant to Health Maintenance Insurance MEDICARE [facility] MEDICARE [facility] Care Teams Multimedia Editor Relationship Specialty Start Date End Date Edda Adames MD PCP - General 09/02/17 Amor Steiner MD [address] [place] [address] [place] [address] Referring Physician Pain Management 01/04/25
[2025-11-07 17:16] LABS: Hematocrit 37.0 % (37.0-47.0); Hemoglobin 11.2 g/dL (12.0-15.0); Immature Granulocyte Percent A 0.2 % (0-0.5); Lymphocytes Absolute Auto 1.19 K/mm3 (0.9-3.2); Mean Corpuscular HGB Conc 30.3 g/dl (32-36); Mean Corpuscular Hemoglobin 27.0 pg (26-34); Mean Corpuscular Volume 89.2 fl (80-100); Nucleated Red Blood Cells Absolute Auto 0.000 K/mm3 (0.0-0.012); Nucleated Red Blood Cells Perc 0.0 % (0.0-0.2); Platelet Count Result 272 k/mm3 (150-375); Red Blood Count 4.15 M/mm3 (4.2-5.4); White Blood Count 5.7 K/mm3 (4.5-10.0)
[2025-11-07 17:20] LABS: Alanine Aminotransferase 15 U/L (6-35); Albumin Level 4.1 g/dL (3.5-5.1); Alkaline Phosphatase 110 U/L (38-126); Anion Gap 7 mmol/L (4-12); Aspartate Amino Transferase 47 U/L (14-36); Bilirubin,Total 0.5 mg/dL (0.2-1.3); Blood Urea Nitrogen 38 mg/dL (7-17); Calcium 9.5 mg/dL (8.4-10.2); Carbon Dioxide 34 mmol/L (22-30); Chloride 96 mmol/L (98-107); Cholesterol 161 mg/dL (0-200); Estimated Glomerular Filt Rate 37; Glucose 97 mg/dL (65-110); HDL Direct 56 mg/dL; Potassium 4.5 mmol/L (3.4-5.0); Sodium 137 mmol/L (137-145); Total Protein 7.9 g/dL (6.3-8.2); Triglycerides 147 mg/dL (<150)
[2025-11-07 17:35] LABS: Hemoglobin A1C 7.7 % (<5.7)
[2025-11-07 17:51] LABS: Thyroid Stimulating Hormone Reflex 4.900 uIU/mL (0.465-4.68)
[2025-11-07 18:14] LABS: Vitamin B12 982.0 pg/mL (239-931)
[2025-11-07 18:50] LABS: Free T4 Free Thyroxine Reflex 1.24 ng/dL (0.78-2.19)
[2025-11-07 19:48] LABS: Total Triiodothyronine (T3) 1.18 NG/ML (0.82-1.58)
== END 2025-11-07 10:30 | disposition home or self-care (01) ==
LOC: ANHGOSHLAB 10:30
PROVIDERS: PCP Nurse Practitioner Family; Visit Provider Nurse Practitioner Family
DX: E53.8 Deficiency of other specified B group vitamins (principal); E11.9 Type 2 diabetes mellitus without complications; R78.5 Finding of other psychotropic drug in blood; I10 Essential (primary) hypertension; E55.9 Vitamin D deficiency, unspecified; E78.5 Hyperlipidemia, unspecified
CPT/HCPCS: 36415; 80053; 80061; 82306; 82607; 83036; 84439; 84443; 84480; 85025